=== PATIENT | male | born 1940 | race Caucasian/White ===

== ENCOUNTER 2019-04-02 21:31 | Emergency (ER) | payer MEDICARE ==
[2019-04-02] MEDS ORDERED: HYDROmorphone 0.5 MG/0.5 ML SYRINGE IVP STA (22:15)
[2019-04-02] MEDS ORDERED: ONDANSETRON 4 MG/2 ML VIAL IVP STA (22:15)
[2019-04-02] MEDS ORDERED: SODIUM CHLORIDE 0.9% 1,000 ML IV STA (22:15)
[2019-04-02] MEDS ORDERED: KETOROLAC 30 MG/ML 1 ML VIAL IVP STA (22:15)
[2019-04-02 22:30] LABS: Basophils % (A) 0 %; Eosinophils # (A) 0.1 k/uL (0-0.7); Eosinophils % (A) 1 %; HCT 49.4 % (39.0-53.0); HGB 16.8 gm/dL (13.0-17.5); Lymphocytes # (A) 1.2 k/uL (1.0-4.8); Lymphocytes % (A) 11 %; MCH 32.2 pg (25.0-35.0); MCHC 34.1 g/dL (31.0-37.0); MCV 94.5 fL (80.0-100.0); Mean Platelet Volume 7.4; Monocytes # (A) 0.5 k/uL (0-1.0); Monocytes % (A) 4 %; Neutrophils # (A) 8.5 k/uL (1.3-7.7); Neutrophils % (A) 81 %; Platelet Count 201 k/uL (150-450); RBC 5.22 m/uL (4.30-5.90); RDW 14.6 % (11.5-15.5); WBC 10.4 k/uL (3.8-10.6)
[2019-04-02 22:34] LABS: Albumin 4.3 g/dL (3.5-5.0); Calcium 9.2 mg/dL (8.4-10.2); Potassium 4.3 mmol/L (3.5-5.1); Total Bilirubin 1.1 mg/dL (0.2-1.3); Total Protein 7.3 g/dL (6.3-8.2)
--- NOTE | 2019-04-02 23:08 | XR ---
EXAM: XR Abdomen, 1 View CLINICAL HISTORY: ITS.REASON XR Reason: abdominal pain TECHNIQUE: Frontal supine view of the abdomen/pelvis. COMPARISON: 12/30/14 FINDINGS: Gastrointestinal tract: Unremarkable. No dilation. Bones/joints: No acute fracture. No dislocation. Mild hip joint space loss bilaterally. IMPRESSION: No acute findings.
[2019-04-03 00:13] VITALS: BP 151/76; PULSE 82; RESP 18
[2019-04-03 00:17] LABS: Appearance,Urine Clear (Clear); Bilirubin,Urine Negative (Negative); Blood,Urine Moderate (Negative); Color,Urine Yellow; Glucose,Urine (UA) Trace (Negative); Ketones,Urine Negative (Negative); Leukocyte Esterase,Urine Negative (Negative); Mucus,Urine Occasional /hpf; Nitrite,Urine Negative (Negative); PH, Urine 5.5 (5.0-8.0); Protein,Urine 2+ (Negative); RBC,Urine 27 /hpf (0-5); Specific Gravity,Urine 1.022 (1.001-1.035); Squamous Epithelial Cell,Urine 1 /hpf (0-4); Urobilinogen,Urine <2.0 mg/dL (<2.0); WBC,Urine 2 /hpf (0-5)
[2019-04-03] MEDS ORDERED: IBUPROFEN 600 MG STARTER PACK 4 TAB BTL PO STA (00:20)
[2019-04-03] MEDS ORDERED: TAMSULOSIN 0.4 MG CAP.ER.24H PO STA (00:20)
[2019-04-03] MEDS ORDERED: ACET/COD 300 MG/30 MG STARTER PACK 6 TAB BTL PO STA (00:20)
--- NOTE | 2019-04-03 00:22 | ED ---
Abdominal Pain HPI - General Source: patient, family Mode of arrival: ambulatory Limitations: no limitations <Meli Rai - Last Filed: 04/03/19 02:29> <Alva Sood - Last Filed: 04/03/19 02:49> - General Chief Complaint: Abdominal Pain Stated Complaint: Flank pain Time Seen by Provider: 04/02/19 21:52 - History of Present Illness Initial Comments: 78 year-old male patient presents to the emergency department today for evaluation of right flank pain. Patient states this started around noon. Stat es it is a sharp stabbing pain and has been constant since its onset. Patient states he has had decreased urinary output. Denies any hematuria. States he has been nauseated and having dry heaves. Denies taking any medication for his symptoms. States he does have a history of kidney stones in his pain feels similar. Denies fever or chills. Denies any constipation or diarrhea. Patient denies any recent rash, shortness breath, chest pain, numbness, tingling, dizziness, weakness, headache, visual changes, or any other complaints. (Meli Rai) - Related Data Home Medications Medication Instructions Recorded Confirmed Metoprolol Tartrate [Lopressor] 100 mg PO BID 12/30/14 12/30/14 Pravastatin Sodium [Pravachol] 40 mg PO HS 12/30/14 12/30/14 Previous Rx's Medication Instructions Recorded Tamsulosin HCl [Flomax] 0.4 mg PO DAILY #7 cap 12/30/14 Hydrocodone/Acetaminophen [Boyd 1 tab PO Q6HR PRN #12 tab 04/03/19 5-325] Tamsulosin HCl [Flomax] 0.4 mg PO DAILY #7 cap 04/03/19 Allergies Allergy/AdvReac Type Severity Reaction Status Date / Time No Known Allergies Allergy Verified 04/02/19 21:44 Review of Systems ROS Other: All systems not noted in ROS Statement are negative. <Meli Rai - Last Filed: 04/03/19 02:29> ROS Other: All systems not noted in ROS Statement are negative. <Alva Sood - Last Filed: 04/03/19 02:49> ROS Statement: Those systems with pertinent positive or pertinent negative responses have been documented in the HPI. Past Medical History Past Medical History: Hyperlipidemia, Hypertension Additional Past Medical History / Comment(s): KIDNEY STONES, GLAUCOMA History of Any Multi-Drug Resistant Organisms: None Reported Past Surgical History: Orthopedic Surgery Additional Past Surgical History / Comment(s): HEEL SPURS REMOVED Past Psychological History: No Psychological Hx Reported Smoking Status: Former smoker Past Alcohol Use History: None Reported Past Drug Use History: None Reported <Meli Rai Clifford - Last Filed: 04/03/19 02:29> General Exam Limitations: no limitations General appearance: alert, in no apparent distress, other (Physical well- developed, well-nourished elderly male patient in no acute distress. Vital signs upon presentation are temperature 97.7F, pulse 53, respirations 20, blood pressure 198/94, pulse ox 97% on room air.) Eye exam: Present: normal appearance, PERRL, EOMI. Absent: scleral icterus, conjunctival injection, periorbital swelling ENT exam: Present: normal exam, normal oropharynx, mucous membranes moist Respiratory exam: Present: normal lung sounds bilaterally. Absent: respiratory distress, wheezes, rales, rhonchi, stridor Cardiovascular Exam: Present: regular rate, normal rhythm, normal heart sounds. Absent: systolic murmur, diastolic murmur, rubs, gallop, clicks GI/Abdominal exam: Present: soft, normal bowel sounds. Absent: distended, tenderness, guarding, rebound, rigid Back exam: Present: normal inspection, CVA tenderness (R). Absent: CVA tenderness (L) Neurological exam: Present: alert, oriented X3, CN II-XII intact Psychiatric exam: Present: normal affect, normal mood Skin exam: Present: warm, dry, intact, normal color. Absent: rash <Meli Rai M - Last Filed: 04/03/19 02:29> Course Vital Signs 04/02/19 04/03/19 04/03/19 21:40 00:12 00:41 Temperature 97.7 F 98.1 F Pulse Rate 53 L 82 Respiratory 20 18 Rate Blood Pressure 198/94 151/76 O2 Sat by Pulse 97 94 L Oximetry Medical Decision Making - Lab Data Result diagrams: 04/02/19 22:08 04/02/19 22:08 - Radiology Data Radiology results: report reviewed, image reviewed <Meli Rai - Last Filed: 04/03/19 02:29> - Lab Data Result diagrams: 04/02/19 22:08 04/02/19 22:08 <Alva Sood - Last Filed: 04/03/19 02:49> - Medical Decision Making 78 year-old male patient presented to the emergency department today for evaluation of right flank pain. Physical examination did reveal right CVA tenderness. Labs reviewed and did reveal BUN 22, creatinine 1.86. Urinalysis showed 2+ protein, trace glucose, moderate blood, 27 red blood cells, and occasional mucous. X-ray showed no acute abnormalities in the abdomen. Did discuss findings and results with the patient. Patient symptoms and lab findings are consistent with kidney stone. He'll be started on Flomax. Given pain medication for home. Is instructed to follow-up with urologist as soon as possible. He does see Dr. Hall. Return parameters were discussed in detail. He verbalizes understanding and agrees this plan. (Meli Rai) I was available for consultation in the emergency department. The history and physical exam were done by the midlevel provider. I was consulted for this patient's care. I reviewed the case with the midlevel provider and based on their presentation of the patient, I agree with the assessment, medical decision making and plan of care as documented. Chart was dictated using [employer] dictation software. Attempts were made to correct any dictation errors however some typographical errors may persist. (Alva Sood) - Lab Data Lab Results 04/02/19 04/02/19 04/03/19 Range/Units 22:08 22:08 00:09 WBC 10.4 (3.8-10.6) k/uL RBC 5.22 (4.30-5.90) m/uL Hgb 16.8 (13.0-17.5) gm/dL Hct 49.4 (39.0-53.0) % MCV 94.5 (80.0-100.0) fL MCH 32.2 (25.0-35.0) pg MCHC 34.1 (31.0-37.0) g/dL RDW 14.6 (11.5-15.5) % Plt Count 201 (150-450) k/uL Neutrophils % 81 % Lymphocytes % 11 % Monocytes % 4 % Eosinophils % 1 % Basophils % 0 % Neutrophils # 8.5 H (1.3-7.7) k/uL Lymphocytes # 1.2 (1.0-4.8) k/uL Monocytes # 0.5 (0-1.0) k/uL Eosinophils # 0.1 (0-0.7) k/uL Basophils # 0.0 (0-0.2) k/uL Sodium 142 (137-145) mmol/L Potassium 4.3 (3.5-5.1) mmol/L Chloride 108 H (98-107) mmol/L Carbon Dioxide 24 (22-30) mmol/L Anion Gap 10 mmol/L BUN 22 H (9-20) mg/dL Creatinine 1.86 H (0.66-1.25) mg/dL Est GFR (CKD-EPI)AfAm 40 (>60 ml/min/1.73 sqM) Est GFR (CKD-EPI)NonAf 35 (>60 ml/min/1.73 sqM) Glucose 141 H (74-99) mg/dL Calcium 9.2 (8.4-10.2) mg/dL Total Bilirubin 1.1 (0.2-1.3) mg/dL AST 26 (17-59) U/L ALT 33 (21-72) U/L Alkaline Phosphatase 91 (38-126) U/L Total Protein 7.3 (6.3-8.2) g/dL Albumin 4.3 (3.5-5.0) g/dL Amylase 62 (30-110) U/L Lipase 121 (23-300) U/L Urine Color Yellow Urine Appearance Clear (Clear) Urine pH 5.5 (5.0-8.0) Ur Specific [place] 1.022 (1.001-1.035) Urine Protein 2+ H (Negative) Urine Glucose (UA) Trace H (Negative) Urine Ketones Negative (Negative) Urine Blood Moderate H (Negative) Urine Nitrite Negative (Negative) Urine Bilirubin Negative (Negative) Urine Urobilinogen <2.0 (<2.0) mg/dL Ur Leukocyte Esterase Negative (Negative) Urine RBC 27 H (0-5) /hpf Urine WBC 2 (0-5) /hpf Ur Squamous Epith Cells 1 (0-4) /hpf Urine Mucus Occasional H (None) /hpf - Radiology Data One view x-ray of the abdomen is obtained. Report was reviewed in its entirety. Impression by Dr. Moreiar shows no acute findings. (Meli Rai) Disposition Is patient prescribed a controlled substance at d/c from ED?: No Time of Disposition: 00:22 <Meli Rai - Last Filed: 04/03/19 02:29> <Alva Sood - Last Filed: 04/03/19 02:49> Clinical Impression: Kidney stone on right side Disposition: HOME SELF-CARE Condition: Good Instructions (If sedation given, give patient instructions): Kidney Stones (ED) Additional Instructions: Increase fluids. Take medications as directed. Follow up with urology for recheck as soon as possible. Follow-up with the primary care physician for recheck in 1-2 days. Return to the emergency department immediately for any new, worsening, or concerning symptoms. Prescriptions: Tamsulosin HCl [Flomax] 0.4 mg PO DAILY #7 cap Hydrocodone/Acetaminophen [Boyd 5-325] 1 tab PO Q6HR PRN #12 tab PRN Reason: Pain Referrals: Chava Killian DO [Primary Care Provider] - 1-2 days Damir Romeo MD [STAFF PHYSICIAN] - 1-2 days
[2019-04-03 00:42] VITALS: TEMP 98.1
== END 2019-04-03 00:41 | disposition home or self-care (01) ==
LOC: EC 21:31
DX: N20.0 Calculus of kidney (principal); E78.5 Hyperlipidemia, unspecified; I10 Essential (primary) hypertension; Z87.891 Personal history of nicotine dependence; Z53.8 Procedure and treatment not carried out for other reasons; Z79.899 Other long term (current) drug therapy
CPT/HCPCS: 51798; 36415; 80053; 82150; 83690; 85025; 81001; 74018; 99284; 96374; 96375 ×2; 96361 ×2; J2405; J1885; J1170

== ENCOUNTER → 2019-04-03 | Outpatient (CLI) | payer MEDICARE ==
--- NOTE | 2019-04-03 21:16 | CT ---
EXAMINATION TYPE: CT abdomen pelvis wo con DATE OF EXAM: 04/03/2019 COMPARISON: 07/30/2015 HISTORY: 78-year-old male Right flank pain. CT DLP: 1021.9 mGycm. Automated exposure control for dose reduction was used. TECHNIQUE: Contiguous axial scanning of the abdomen and pelvis without IV contrast. Coronal and sagit cristhian reconstructions performed. FINDINGS: Heart normal size without pericardial effusion. Bands of atelectasis or scarring in the lower lungs w ithout pleural effusion. Calcified left hilar lymph node partially visualized compatible with prior g ranulomatous disease. Small hiatal hernia. Noncontrast appearance of the liver, adrenal glands, spleen, and pancreas shows no gross abnormality. Gallbladder mildly hydropic measuring 4.6 cm wide without surrounding inflammatory change. Bilateral renal cysts are demonstrated measuring up to 3.9 cm on the right and 4.9 cm on the left. Pu nctate 2 mm nonobstructive left renal calculus. Lobulated intermediate density lesion lower pole left kidney measures 5.1 cm, versus 5.0 cm in 2015 s uggesting a complicated cyst. There is mild perinephric fat stranding on the right with mild hydronephrosis and asymmetric prominen ce to the right ureter. No dilated small bowel, free fluid, or free air. No mesenteric or retroperitoneal lymphadenopathy. Normal appendix. Scattered mild stool. No pericolonic inflammatory change. Lateral nondistended but shows circumferential wall thickening. Marked prostatomegaly at 7.4 cm wide. Punctate 1 to 2 mm calculus suggested in the distal right ureter, axial image 131 and coronal image 6 3. Additional possible punctate 2 mm calculus at the right UVJ. No abnormal fluid collection in the pelvis. A few left external iliac chain lymph nodes measure up to 8 mm and are probably reactive/post inflammatory. Bones: Degenerative changes at the hips and SI joints. Degenerative changes throughout the lumbar spi ne. IMPRESSION: 1. A punctate 1 to 2 mm calculus at the distal right ureter and possible additional punctate 2 mm ca lculus at the right UVJ. There is mild obstructive uropathy. 2. Additional right-sided perinephric fat stranding. This may be reactive to the mild obstruction. C orrelate to exclude superimposed infection. 3. Marked prostatomegaly (7.4 cm wide). Correlate with PSA values. Circumferential bladder wall thic kening could reflect cystitis or bladder wall hypertrophy from chronic bladder outlet obstruction. 4. Bilateral renal cysts redemonstrated measuring up to 4.9 cm. One indeterminate lesion at the lowe r pole of the left kidney measures 5.1 cm and demonstrates little to no change from 07/30/2015 likely representing a complicated cyst. 5. Mildly hydropic gallbladder likely secondary to fasting state. If right upper quadrant pain or co ncern for early acute cholecystitis, follow-up ultrasound or HIDA scan. 6. Small hiatal hernia.
== END | disposition home or self-care (01) ==
LOC: RADCTMAIN 15:30
PROVIDERS: ATTEND Urology
DX: N20.1 Calculus of ureter (principal); N40.0 Benign prostatic hyperplasia without lower urinary tract symptoms; N28.1 Cyst of kidney, acquired; N39.8 Other specified disorders of urinary system; K44.9 Diaphragmatic hernia without obstruction or gangrene
CPT/HCPCS: 74176

== ENCOUNTER 2019-04-04 15:11 | Inpatient (IN) | payer MEDICARE ==
[2019-04-04] MEDS ORDERED: KETOROLAC 30 MG/ML 1 ML VIAL IVP STA (15:52)
[2019-04-04] MEDS ORDERED: ONDANSETRON 4 MG/2 ML VIAL IVP STA (15:52)
[2019-04-04] MEDS ORDERED: HYDROmorphone 0.5 MG/0.5 ML SYRINGE IVP STA (15:53)
--- NOTE | 2019-04-04 16:09 | ED ---
General Adult HPI - General Chief complaint: Back Pain/Injury Stated complaint: Kidney Pain Time Seen by Provider: 04/04/19 15:34 Source: patient, RN notes reviewed Mode of arrival: ambulatory Limitations: no limitations - History of Present Illness Initial comments: 78-year-old male with a past medical history of hypertension, hyperlipidemia, glaucoma, nephrolithiasis presents to the emergency department for chief copmlaint of right flank pain 2 days. Patient states he was diagnosed with kidney stone. States he had an outpatient computed tomography scan done yesterday ordered by Dr. hair. Patient states he has been taking his Hilbert at home but his pain is not relieved. States he has been vomiting several times at home without relief. Apparently patient called office who is not in the office today so was told to come to the ER. CT did show a 1-2 mm kidney stone in the distal right ureter as well as a 2 mm kidney stone in the UVJ. Patient has no other complaints at this time including shortness of breath, chest pain, abdominal pain, nausea or vomiting, headache, or visual changes. - Related Data Home Medications Medication Instructions Recorded Confirmed Metoprolol Tartrate [Lopressor] 100 mg PO BID 12/30/14 04/04/19 Atorvastatin [Lipitor] 40 mg PO HS 04/04/19 04/04/19 Brimonidine Tartrate [Alphagan P 1 drops BOTH EYES BID 04/04/19 04/04/19 0.2% Ophth Soln] Latanoprost [Xalatan 0.005%] 1 drop BOTH EYES HS 04/04/19 04/04/19 Losartan Potassium 100 mg PO DAILY 04/04/19 04/04/19 Previous Rx's Medication Instructions Recorded Tamsulosin HCl [Flomax] 0.4 mg PO DAILY #7 cap 04/03/19 Allergies Allergy/AdvReac Type Severity Reaction Status Date / Time No Known Allergies Allergy Verified 04/04/19 16:31 Review of Systems ROS Statement: Those systems with pertinent positive or pertinent negative responses have been documented in the HPI. ROS Other: All systems not noted in ROS Statement are negative. Past Medical History Past Medical History: Hyperlipidemia, Hypertension Additional Past Medical History / Comment(s): KIDNEY STONES, GLAUCOMA History of Any Multi-Drug Resistant Organisms: None Reported Past Surgical History: Orthopedic Surgery Additional Past Surgical History / Comment(s): HEEL SPURS REMOVED Past Psychological History: No Psychological Hx Reported Smoking Status: Former smoker Past Alcohol Use History: None Reported Past Drug Use History: None Reported General Exam Limitations: no limitations Course Vital Signs 04/04/19 15:25 Temperature 98.3 F Pulse Rate 52 L Respiratory 18 Rate Blood Pressure 152/75 O2 Sat by Pulse 94 L Oximetry - Reevaluation(s) Reevaluation #1: 04/04/19 16:10 CT of the abdomen and pelvis shows a punctate 1-2 mm calculus in the distal right ureter and possible additional punctate 2 mm calculus at the right UVJ with mild obstructive uropathy. There is a right-sided perinephric fat strandi ng. Patient has marked prostatomegaly with circumferential bladder wall thickening. Bilateral renal cysts and an indeterminate lesion at the lower pole of the left kidney deficits little to no change which is likely a complicated cyst. Patient is aware of this already.There is also mildly hydropic gallbladder likely secondary to fasting state. No right upper quadrant pain, no concern for cholecystitis. Medical Decision Making - Medical Decision Making 78-year-old male presents to the emergency department for a chief complaint of right flank pain 2 days. She had an outpatient CT obtained which showed a 1-2 mm stone in the distal right ureter and a 2 mm stone in the right UVJ. She states he is drinking water but is vomiting often due to the pain at home despite Hilbert use. On presentation vitals are stable. Exam does not show any abdominal tenderness but does have right CVA tenderness. CBC shows a white count of 11.6. Creatinine is 2.73 which is increased from 1.86 less than 2 days ago. BUN/creatinine ratio is 12 1. Concern for post renal JAVIER cause. Patient does have enlarged prostate but no retention on bladder scan. Could have a component of dehydration as well as patient has been vomiting frequently. However given JAVIER patient will be admitted for IV hydration as well as urology consult and pain management. - Lab Data Result diagrams: 04/04/19 16:00 04/04/19 16:00 Lab Results 04/04/19 04/04/19 04/04/19 Range/Units 16:00 16:00 16:00 WBC 11.6 H (3.8-10.6) k/uL RBC 4.50 (4.30-5.90) m/uL Hgb 14.3 (13.0-17.5) gm/dL Hct 42.9 (39.0-53.0) % MCV 95.4 (80.0-100.0) fL MCH 31.7 (25.0-35.0) pg MCHC 33.2 (31.0-37.0) g/dL RDW 13.7 (11.5-15.5) % Plt Count 171 (150-450) k/uL Neutrophils % 88 % Lymphocytes % 6 % Monocytes % 4 % Eosinophils % 2 % Basophils % 0 % Neutrophils # 10.2 H (1.3-7.7) k/uL Lymphocytes # 0.7 L (1.0-4.8) k/uL Monocytes # 0.5 (0-1.0) k/uL Eosinophils # 0.2 (0-0.7) k/uL Basophils # 0.0 (0-0.2) k/uL Sodium 138 (137-145) mmol/L Potassium 4.5 (3.5-5.1) mmol/L Chloride 106 (98-107) mmol/L Carbon Dioxide 21 L (22-30) mmol/L Anion Gap 11 mmol/L BUN 34 H (9-20) mg/dL Creatinine 2.73 H (0.66-1.25) mg/dL Est GFR (CKD-EPI)AfAm 25 (>60 ml/min/1.73 sqM) Est GFR (CKD-EPI)NonAf 22 (>60 ml/min/1.73 sqM) Glucose 123 H (74-99) mg/dL Calcium 8.3 L (8.4-10.2) mg/dL Total Bilirubin 1.6 H (0.2-1.3) mg/dL AST 45 (17-59) U/L ALT 25 (21-72) U/L Alkaline Phosphatase 63 (38-126) U/L Total Protein 6.7 (6.3-8.2) g/dL Albumin 3.9 (3.5-5.0) g/dL Urine Color Yellow Urine Appearance Clear (Clear) Urine pH 6.0 (5.0-8.0) Ur Specific [place] 1.022 (1.001-1.035) Urine Protein 1+ H (Negative) Urine Glucose (UA) Trace H (Negative) Urine Ketones Negative (Negative) Urine Blood Moderate H (Negative) Urine Nitrite Negative (Negative) Urine Bilirubin Negative (Negative) Urine Urobilinogen <2.0 (<2.0) mg/dL Ur Leukocyte Esterase Trace H (Negative) Urine RBC >182 H (0-5) /hpf Urine WBC 10 H (0-5) /hpf Ur Squamous Epith Cells <1 (0-4) /hpf Urine Bacteria Rare H (None) /hpf Hyaline Casts 1 (0-2) /lpf Urine Mucus Rare H (None) /hpf Disposition Clinical Impression: Kidney stone on right side, JAVIER (acute kidney injury) Disposition: ADMITTED IP TO THIS HOSP Condition: Fair Is patient prescribed a controlled substance at d/c from ED?: No Referrals: Chava Killian DO [Primary Care Provider] - 1-2 days Time of Disposition: 16:58
[2019-04-04 16:17] LABS: Basophils % (A) 0 %; Eosinophils # (A) 0.2 k/uL (0-0.7); Eosinophils % (A) 2 %; HCT 42.9 % (39.0-53.0); HGB 14.3 gm/dL (13.0-17.5); Lymphocytes # (A) 0.7 k/uL (1.0-4.8); Lymphocytes % (A) 6 %; MCH 31.7 pg (25.0-35.0); MCHC 33.2 g/dL (31.0-37.0); MCV 95.4 fL (80.0-100.0); Mean Platelet Volume 6.9; Monocytes # (A) 0.5 k/uL (0-1.0); Monocytes % (A) 4 %; Neutrophils # (A) 10.2 k/uL (1.3-7.7); Neutrophils % (A) 88 %; Platelet Count 171 k/uL (150-450); RDW 13.7 % (11.5-15.5); WBC 11.6 k/uL (3.8-10.6)
[2019-04-04 16:26] LABS: Appearance,Urine Clear (Clear); Bacteria,Urine Rare /hpf; Bilirubin,Urine Negative (Negative); Blood,Urine Moderate (Negative); Color,Urine Yellow; Glucose,Urine (UA) Trace (Negative); Hyaline Casts,Urine 1 /lpf (0-2); Ketones,Urine Negative (Negative); Leukocyte Esterase,Urine Trace (Negative); Mucus,Urine Rare /hpf; Nitrite,Urine Negative (Negative); Protein,Urine 1+ (Negative); RBC,Urine >182 /hpf (0-5); Specific Gravity,Urine 1.022 (1.001-1.035); Squamous Epithelial Cell,Urine <1 /hpf (0-4); Urobilinogen,Urine <2.0 mg/dL (<2.0); WBC,Urine 10 /hpf (0-5)
[2019-04-04 16:32] LABS: Albumin 3.9 g/dL (3.5-5.0); Calcium 8.3 mg/dL (8.4-10.2); Potassium 4.5 mmol/L (3.5-5.1); Total Bilirubin 1.6 mg/dL (0.2-1.3); Total Protein 6.7 g/dL (6.3-8.2)
[2019-04-04] MEDS ORDERED: SODIUM CHLORIDE 0.9% 1,000 ML IV STA (16:35)
[2019-04-04] MEDS ORDERED: ONDANSETRON 4 MG/2 ML VIAL IVP PRN (16:58)
[2019-04-04] MEDS ORDERED: NALOXONE 0.4 MG/ML 1 ML VIAL IV PRN (16:58)
[2019-04-04] MEDS ORDERED: ACETAMINOPHEN TAB 325 MG TAB PO PRN (16:58)
[2019-04-04] MEDS: SODIUM CHLORIDE 0.9% 1,000 ML IV SCH (17:46)
[2019-04-04 20:31] VITALS: BMI 29.9
[2019-04-04] MEDS: ATORVASTATIN 40 MG TAB PO SCH (20:31)
[2019-04-04] MEDS: BRIMONIDINE TARTRATE 0.2% DROPS 5 ML BTL BOTH EYES SCH (20:32)
[2019-04-04] MEDS: LATANOPROST 0.005% OPHTH DROPS 2.5 ML BTL BOTH EYES SCH (20:32)
[2019-04-04] MEDS: METOPROLOL TARTRATE 50 MG TAB PO SCH (22:21)
[2019-04-04] MEDS: HEPARIN SODIUM,PORCINE 5,000 UNIT/ML 1 ML VIAL SQ SCH (22:21)
[2019-04-04] MEDS: PANTOPRAZOLE 40 MG TABLET PO SCH (23:06)
[2019-04-05] MEDS ORDERED: HYDROmorphone 0.5 MG/0.5 ML SYRINGE ONE (01:18)
[2019-04-05] MEDS: SODIUM CHLORIDE 0.9% 1,000 ML IV SCH ×3 (04:58→23:56)
--- NOTE | 2019-04-05 05:28 | HP ---
HISTORY AND PHYSICAL CHIEF COMPLAINT: Right-sided back pain and low into loin to groin pain and renal failure. HISTORY OF PRESENT ILLNESS: This 78-year-old gentleman with a past medical history of multiple medical problems including hyperlipidemia, history of hypertension, kidney stones, being followed Dr. Killian in the outpatient setting, was complaining of back pain which radiated to the front, the right flank pain about 2 days. The patient previously had kidney stones. The patient had outpatient CAT scan. Patient was taking [place] because of lack of improvement. The patient came to [facility] admitted for further evaluation and treatment. The CT scan showed 1 to 2 mm kidney stones in the distal right ureter as well as 2 mm kidney stones in the UVJ. There is no history of any fever. There is no history of headache, loss of consciousness or seizures. Of note, the patient's creatinine was found to be 2.73, indicating acute renal failure. The patient also had multiple other lab abnormalities also. There is no history of any fever, rigors. No history of headache, loss of consciousness or seizures. PAST MEDICAL HISTORY: History of hypertension, hyperlipidemia, nephrolithiasis, history of DJD. MEDICATIONS: Medications prior to admission include: 1. Lipitor 40 mg q.h.s. 2. Xalatan 0.005 one drop both eyes q.h.s. 3. Alphagan 0.2 one drop both eyes b.i.d. 4. Losartan 100 mg p.o. daily. 5. Metoprolol 100 mg p.o. b.i.d. 6. Flomax 0.4 daily. ALLERGIES: None. FAMILY HISTORY: History of cancer in the family. SOCIAL HISTORY: Previous history of smoking. No history of alcohol intake. REVIEW OF SYSTEMS: ENT: No diminished hearing or diminished vision. CARDIOVASCULAR SYSTEM: No angina. RESPIRATORY SYSTEM: No cough. GI: No nausea. : As mentioned earlier. NERVOUS SYSTEM: No numbness or weakness. ALLERGY/IMMUNOLOGY: No asthma or hayfever. MUSCULOSKELETAL: As mentioned earlier. HEMATOLOGY/ONCOLOGY: No history of anemia. ENDOCRINE: No history of diabetes or hypothyroidism. CONSTITUTIONAL: As mentioned earlier. DERMATOLOGY: Negative. RHEUMATOLOGY: Negative. PSYCHIATRY: As mentioned earlier. PHYSICAL EXAMINATION: The patient is alert and oriented x3. Pulse is 52, blood pressure 167/85, respirations 16, temperature 97.8, pulse ox 93% on room air. HEENT: Conjunctivae normal. Oral mucosa moist. NECK: No jugular venous distention. No carotid bruit. No lymph node enlargement. CARDIOVASCULAR: S1, S2 muffled. No S3, no S4. RESPIRATORY: Breath sounds diminished at the bases. No rhonchi, no crackles. ABDOMEN: Soft, mild diffuse tenderness in the right side of the abdomen present. No guarding. No rigidity. No mass palpable. No ascites. Bowel sounds present. LEGS: No edema, no swelling NERVOUS SYSTEM: Higher function as mentioned earlier. Moves all 4 limbs. No focal motor or sensory deficit. LYMPHATICS: No lymphadenopathy of the neck, axillae or groin. SKIN: No ulcer, rash or bleeding. JOINTS: No active deforming arthropathy. LABS: WBC 11.6, hemoglobin 14.3. Sodium 138, potassium 4.5. Creatinine is 2.73. Total bilirubin is 1.6. Glucose 123. Creatine kinase 772. ASSESSMENT: 1. Acute renal failure possibly prerenal as well as postrenal. 2. Right nephrolithiasis with abdominal pain. 3. Hypertension. 4. Hyperlipidemia. 5. History of kidney stones. 6. History of glaucoma. 7. Remote history of nicotine dependence. RECOMMENDATIONS AND DISCUSSION: This 78-year-old gentleman who presented with multiple complex medical issues, will monitor the patient closely. Continue the current medications. Continue symptomatic treatment. Cautious IV hydration. Repeat labs. Otherwise also recommend nephrology and urology evaluations. DVT prophylaxis. Guarded prognosis because of multiple complex medical issues. Further recommendations to follow. A copy of dictation forwarded to Dr. Killian who is the primary physician. [id number] / LUISN: [id number] /
[2019-04-05] MEDS: HYDROmorphone 0.5 MG/0.5 ML SYRINGE IVP PRN ×2 (06:58→13:17)
[2019-04-05] MEDS ORDERED: LOSARTAN 50 MG TAB PO SCH (09:00)
[2019-04-05 09:28] LABS: Basophils % (A) 0 %; Eosinophils # (A) 0.1 k/uL (0-0.7); Eosinophils % (A) 2 %; HCT 41.6 % (39.0-53.0); HGB 13.8 gm/dL (13.0-17.5); Lymphocytes # (A) 0.7 k/uL (1.0-4.8); Lymphocytes % (A) 7 %; MCH 32.3 pg (25.0-35.0); MCHC 33.2 g/dL (31.0-37.0); MCV 97.3 fL (80.0-100.0); Mean Platelet Volume 6.9; Monocytes # (A) 0.5 k/uL (0-1.0); Monocytes % (A) 5 %; Neutrophils # (A) 7.6 k/uL (1.3-7.7); Neutrophils % (A) 84 %; Platelet Count 166 k/uL (150-450); RBC 4.27 m/uL (4.30-5.90); RDW 13.8 % (11.5-15.5); WBC 9.1 k/uL (3.8-10.6)
[2019-04-05 09:43] LABS: Calcium 7.8 mg/dL (8.4-10.2); Potassium 4.4 mmol/L (3.5-5.1)
[2019-04-05] MEDS: BRIMONIDINE TARTRATE 0.2% DROPS 5 ML BTL BOTH EYES SCH ×2 (10:35→21:54)
[2019-04-05] MEDS: METOPROLOL TARTRATE 50 MG TAB PO SCH ×2 (10:39→21:55)
[2019-04-05] MEDS: PANTOPRAZOLE 40 MG TABLET PO SCH (10:40)
[2019-04-05] MEDS: TAMSULOSIN 0.4 MG CAP.ER.24H PO SCH (10:40)
--- NOTE | 2019-04-05 12:25 | P.NPCON ---
History of Present Illness - Reason for Consult acute renal failure - History of Present Illness Reason for consultation: Acute kidney injury History of present illness: Patient is a 78-year-old male seen in renal consultation for acute kidney injury. Patient's creatinine in December 2014 was 1.75. On 04/02/2019 it was 1.86 and peaked at 2.73 yesterday. It is 2.5 today. Patient presented to the hospital due to right-sided flank pain. Patient states he had a CAT scan done which revealed bilateral kidney stones with mild right-sided hydronephrosis. He denies any fever or chills. He did have 1 episode of hematuria on Wednesday but none since then. He is maintained on normal saline at 100 mL an hour. He is also being followed by urology. There are no plans for surgical intervention at this time. He denies use of nonsteroidals. Oral intake has been poor the last few days. Denies vomiting or diarrhea. No history of diabetes. He is maintained on losartan for hypertension. Denies family history of renal disease. Vital signs are stable. General: The patient appeared well nourished and normally developed. HEENT: Head exam is unremarkable. Neck is without jugular venous distension. LUNGS: Lungs are clear to auscultation and percussion. Breath sounds decreased. HEART: Rate and Rhythm are regular. First and second heart sounds normal. No murmurs, rubs or gallops. ABDOMEN: Abdominal exam reveals normal bowel sounds. Right lower quadrant tenderness. Obese. EXTREMITITES: No clubbing, cyanosis, or edema. Past Medical History Past Medical History: Hyperlipidemia, Hypertension Additional Past Medical History / Comment(s): KIDNEY STONES, GLAUCOMA History of Any Multi-Drug Resistant Organisms: None Reported Past Surgical History: Orthopedic Surgery Additional Past Surgical History / Comment(s): HEEL SPURS REMOVED Past Psychological History: No Psychological Hx Reported Smoking Status: Former smoker Past Alcohol Use History: None Reported Past Drug Use History: None Reported - Past Family History Father Family Medical History: Cancer Mother Family Medical History: Cancer Medications and Allergies Home Medications Medication Instructions Recorded Confirmed Type Metoprolol Tartrate [Lopressor] 100 mg PO BID 12/30/14 04/04/19 History Tamsulosin HCl [Flomax] 0.4 mg PO DAILY #7 cap 04/03/19 04/04/19 Rx Atorvastatin [Lipitor] 40 mg PO HS 04/04/19 04/04/19 History Brimonidine Tartrate [Alphagan P 1 drops BOTH EYES BID 04/04/19 04/04/19 History 0.2% Ophth Soln] Latanoprost [Xalatan 0.005%] 1 drop BOTH EYES HS 04/04/19 04/04/19 History Losartan Potassium 100 mg PO DAILY 04/04/19 04/04/19 History Allergies Allergy/AdvReac Type Severity Reaction Status Date / Time No Known Allergies Allergy Verified 04/04/19 16:31 Physical Exam Vitals: Vital Signs Temp Pulse Pulse Resp BP BP Pulse Ox 04/05/19 10:29 53 L 16 96 04/05/19 07:00 98.0 F 58 L 16 156/75 90 L 04/05/19 05:21 98.3 F 54 L 16 126/60 90 L 04/04/19 19:59 98.2 F 75 17 146/95 94 L 04/04/19 18:47 97.8 F 52 L 16 167/85 93 L 04/04/19 17:45 97.2 F L 54 L 18 140/92 94 L 04/04/19 15:25 98.3 F 52 L 18 152/75 94 L Intake and Output 04/04/19 04/05/19 04/05/19 22:59 06:59 14:59 Other: Voiding Method Toilet # Voids 1 2 Weight 103.147 kg Results - Lab Results Most recent lab results Calcium 7.8 mg/dL (8.4-10.2) L 04/05/19 08:59 04/05/19 08:59 04/05/19 08:59 Assessment and Plan Plan: Assessment: 1. Acute kidney injury mostly prerenal secondary to poor oral intake. Creatinine peaked at 2.73 and is 2.5 today. 2. Chronic kidney disease. Patient's creatinine in December 2014 was 1.75. 3. Nephrolithiasis. 4. Metabolic acidosis secondary to acute kidney injury. 5. Benign hypertension. Controlled. Plan: Maintain normal saline at 100 mL an hour. Add sodium bicarbonate. Avoid nephrotoxins. DC losartan. I will add amlodipine for blood pressure control. Repeat electrolytes in the morning. Thank you for the consultation. I will continue to follow the patient with you during his hospital stay.
[2019-04-05] MEDS: HEPARIN SODIUM,PORCINE 5,000 UNIT/ML 1 ML VIAL SQ SCH ×2 (13:16→18:10)
[2019-04-05] MEDS: SODIUM BICARBONATE TAB 650 MG TAB PO SCH ×2 (14:15→21:55)
[2019-04-05] MEDS: amLODIPine 5 MG TAB PO SCH ×2 (14:15→21:56)
--- NOTE | 2019-04-05 17:44 | PN ---
PROGRESS NOTE DATE OF SERVICE: 04/05/2019 This 78-year-old gentleman who was admitted with renal failure also had right nephrolithiasis. The patient is being closely monitored by Nephrology and Urology. No chest pain. No palpitations. No fever. The creatinine today is 2.58. On exam, alert and oriented x3. Pulse is 59, blood pressure 161/82, respiration 18, temperature 98.4, pulse ox 93% on room air. HEENT: Conjunctivae normal. NECK: No jugular venous distention. CARDIOVASCULAR SYSTEM: S1, S2 muffled. RESPIRATORY SYSTEM: Breath sounds diminished at the bases. No rhonchi. No crackles. ABDOMEN: Soft. Mild diffuse discomfort. Otherwise, no guarding, no rigidity. No mass palpable. LEGS: No edema. No swelling. NERVOUS SYSTEM: No focal deficit. LABS: WBC 9.1, hemoglobin 13.8. Sodium 139, potassium 4.4. Creatinine is 2.58. ASSESSMENT: 1. Acute renal failure, possibly prerenal as well as postrenal. 2. Right nephrolithiasis with abdominal pain. 3. Hypertension. 4. Hyperlipidemia. 5. History of kidney stones. 6. History of glaucoma. 7. Remote history of nicotine dependence. RECOMMENDATIONS AND DISCUSSION: I recommend to continue current medications, continue with the monitoring, symptomatic treatment. Closely follow with Urology and Nephrology. Guarded prognosis. Further recommendations to follow. MMODL / IJN: [id number] /
--- NOTE | 2019-04-05 19:06 | P.GSCN ---
History of Present Illness Consult date: 04/05/19 Reason for Consult: Right ureteral calculus and hydronephrosis History of present illness: The patient is a 78-year-old male with a history of uric acid urolithiasis admitted through the emergency room yesterday afternoon for evaluation of intr actable right flank pain, nausea and vomiting. The patient is well known to me and had been seen by me om04/03/2019. He developed right flank pain, nausea and vomiting on 04/02 and was seen in the emergency room. He was noted to have microscopic hematuria and was given analgesics and tamsulosin in hopes that he would pass a stone. When I saw him on 04/03 he continued to complain of urgency to void but his postvoid residual was very small. I suspected a distal ureteral calculus and a noncontrast computed tomography scan of the abdomen and pelvis was obtained later in the day. This identified a 2 mm calculus which appeared to be at the right ureteral meatus and a possible 1 mm calculus located 1-1/2-2 cm more proximally. The patient says that he has continued to have urgency since that time and came to the emergency room as he was unable to tolerate the pain. He has not seen a calculus since he was admitted. His white blood count at the time of admission was 11,600. This morning is 9100. BUN/creatinine at the time of admission were 34/2.73. BUN/creatinine today are 34/2.58. He had previously undergone ureteroscopy with lithotripsy for treatment of a left ureteral calculus in 2008. The calculus was 100% uric acid. 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 He has had no subsequent calculi. Review of Systems - Constitutional Denies chills, Denies fever - Cardiovascular Denies edema, Denies shortness of breath - Gastrointestinal Reports as per HPI - Genitourinary Reports as per HPI, Denies dysuria, Denies hematuria Past Medical History Past Medical History: Hyperlipidemia, Hypertension Additional Past Medical History / Comment(s): KIDNEY STONES, GLAUCOMA History of Any Multi-Drug Resistant Organisms: None Reported Past Surgical History: Orthopedic Surgery Additional Past Surgical History / Comment(s): HEEL SPURS REMOVED Past Psychological History: No Psychological Hx Reported Smoking Status: Former smoker Past Alcohol Use History: None Reported Past Drug Use History: None Reported - Past Family History Father Family Medical History: Cancer Mother Family Medical History: Cancer Medications and Allergies Home Medications Medication Instructions Recorded Confirmed Type Metoprolol Tartrate [Lopressor] 100 mg PO BID 12/30/14 04/04/19 History Tamsulosin HCl [Flomax] 0.4 mg PO DAILY #7 cap 04/03/19 04/04/19 Rx Atorvastatin [Lipitor] 40 mg PO HS 04/04/19 04/04/19 History Brimonidine Tartrate [Alphagan P 1 drops BOTH EYES BID 04/04/19 04/04/19 History 0.2% Ophth Soln] Latanoprost [Xalatan 0.005%] 1 drop BOTH EYES HS 04/04/19 04/04/19 History Losartan Potassium 100 mg PO DAILY 04/04/19 04/04/19 History Allergies Allergy/AdvReac Type Severity Reaction Status Date / Time No Known Allergies Allergy Verified 04/04/19 16:31 Surgical - Exam Vital Signs Temp Pulse Resp BP Pulse Ox 98.3 F 52 L 18 152/75 94 L 04/04/19 15:25 04/04/19 15:25 04/04/19 15:25 04/04/19 15:25 04/04/19 15:25 - General moderate distress - ENT no hearing loss - Neck no masses, no lymphadectomy - Respiratory normal respiratory effort - Abdomen Abdomen: soft, non tender, no organomegaly - Genitourinary normal penis with no external lesions, testicles non-tender Results - Labs 04/05/19 08:59 04/05/19 08:59 Abnormal Lab Results - Last 24 Hours (Table) 04/04/19 04/04/19 04/04/19 Range/Units 16:00 16:00 16:00 WBC 11.6 H (3.8-10.6) k/uL RBC (4.30-5.90) m/uL Neutrophils # 10.2 H (1.3-7.7) k/uL Lymphocytes # 0.7 L (1.0-4.8) k/uL Chloride (98-107) mmol/L Carbon Dioxide 21 L (22-30) mmol/L BUN 34 H (9-20) mg/dL Creatinine 2.73 H (0.66-1.25) mg/dL Glucose 123 H (74-99) mg/dL Calcium 8.3 L (8.4-10.2) mg/dL Total Bilirubin 1.6 H (0.2-1.3) mg/dL Creatine Kinase (55-170) U/L Urine Protein 1+ H (Negative) Urine Glucose (UA) Trace H (Negative) Urine Blood Moderate H (Negative) Ur Leukocyte Esterase Trace H (Negative) Urine RBC >182 H (0-5) /hpf Urine WBC 10 H (0-5) /hpf Urine Bacteria Rare H (None) /hpf Urine Mucus Rare H (None) /hpf 04/04/19 04/05/19 04/05/19 Range/Units 16:00 08:59 08:59 WBC (3.8-10.6) k/uL RBC 4.27 L (4.30-5.90) m/uL Neutrophils # (1.3-7.7) k/uL Lymphocytes # 0.7 L (1.0-4.8) k/uL Chloride 108 H (98-107) mmol/L Carbon Dioxide 21 L (22-30) mmol/L BUN 34 H (9-20) mg/dL Creatinine 2.58 H (0.66-1.25) mg/dL Glucose 101 H (74-99) mg/dL Calcium 7.8 L (8.4-10.2) mg/dL Total Bilirubin (0.2-1.3) mg/dL Creatine Kinase 772 H (55-170) U/L Urine Protein (Negative) Urine Glucose (UA) (Negative) Urine Blood (Negative) Ur Leukocyte Esterase (Negative) Urine RBC (0-5) /hpf Urine WBC (0-5) /hpf Urine Bacteria (None) /hpf Urine Mucus (None) /hpf Diabetes panel 04/04/19 04/05/19 Range/Units 16:00 08:59 Sodium 138 139 (137-145) mmol/L Potassium 4.5 4.4 (3.5-5.1) mmol/L Chloride 106 108 H (98-107) mmol/L Carbon Dioxide 21 L 21 L (22-30) mmol/L BUN 34 H 34 H (9-20) mg/dL Creatinine 2.73 H 2.58 H (0.66-1.25) mg/dL Glucose 123 H 101 H (74-99) mg/dL Calcium 8.3 L 7.8 L (8.4-10.2) mg/dL AST 45 (17-59) U/L ALT 25 (21-72) U/L Alkaline Phosphatase 63 (38-126) U/L Total Protein 6.7 (6.3-8.2) g/dL Albumin 3.9 (3.5-5.0) g/dL Calcium panel 04/04/19 04/05/19 Range/Units 16:00 08:59 Calcium 8.3 L 7.8 L (8.4-10.2) mg/dL Albumin 3.9 (3.5-5.0) g/dL Pituitary panel 04/04/19 04/05/19 Range/Units 16:00 08:59 Sodium 138 139 (137-145) mmol/L Potassium 4.5 4.4 (3.5-5.1) mmol/L Chloride 106 108 H (98-107) mmol/L Carbon Dioxide 21 L 21 L (22-30) mmol/L BUN 34 H 34 H (9-20) mg/dL Creatinine 2.73 H 2.58 H (0.66-1.25) mg/dL Glucose 123 H 101 H (74-99) mg/dL Calcium 8.3 L 7.8 L (8.4-10.2) mg/dL Adrenal panel 04/04/19 04/05/19 Range/Units 16:00 08:59 Sodium 138 139 (137-145) mmol/L Potassium 4.5 4.4 (3.5-5.1) mmol/L Chloride 106 108 H (98-107) mmol/L Carbon Dioxide 21 L 21 L (22-30) mmol/L BUN 34 H 34 H (9-20) mg/dL Creatinine 2.73 H 2.58 H (0.66-1.25) mg/dL Glucose 123 H 101 H (74-99) mg/dL Calcium 8.3 L 7.8 L (8.4-10.2) mg/dL Total Bilirubin 1.6 H (0.2-1.3) mg/dL AST 45 (17-59) U/L ALT 25 (21-72) U/L Alkaline Phosphatase 63 (38-126) U/L Total Protein 6.7 (6.3-8.2) g/dL Albumin 3.9 (3.5-5.0) g/dL Assessment and Plan (1) Right ureteral calculus Narrative/Plan: The patient's acute right flank pain, urgency and right hydronephrosis appeared to be secondary to a 2 mm calculus located at the right ureteral meatus. The patient's elevated BUN and creatinine are most likely related to preexistent renal disease which has been worsened by reduced fluid intake from nausea and vomiting. The patient has no evidence of urinary tract infection and statistically the likelihood of spontaneous passage of a stone this size and location is very high. The patient will be continued on tamsulosin but if his severe pain and nausea persist, right ureteroscopy with lithotripsy may be considered tomorrow. Current Visit: Yes Status: Acute Code(s): N20.1 - CALCULUS OF URETER SNOMED Code(s): 17023217
[2019-04-05] MEDS: LATANOPROST 0.005% OPHTH DROPS 2.5 ML BTL BOTH EYES SCH (21:54)
[2019-04-05] MEDS: ATORVASTATIN 40 MG TAB PO SCH (21:54)
[2019-04-06] MEDS: HEPARIN SODIUM,PORCINE 5,000 UNIT/ML 1 ML VIAL SQ SCH ×2 (00:55→06:35)
--- NOTE | 2019-04-06 07:51 | P.PN ---
Progress Note - Text Progress Note Date: 04/06/19 The patient is afebrile. He says he's had minimal if any pain since yesterday afternoon at around 4 PM. He no longer has nausea and wants breakfast. He has not recovered a calculus but no longer has urgency to void and it is possible that the most distal calculus has passed into his bladder. He will continue to strain his urine. If he remains comfortable this morning he could be discharged from my standpoint. He will see me in 1-2 weeks for follow-up.
[2019-04-06 08:22] LABS: Basophils % (A) 0 %; Eosinophils # (A) 0.1 k/uL (0-0.7); Eosinophils % (A) 1 %; HCT 39.7 % (39.0-53.0); HGB 12.8 gm/dL (13.0-17.5); Lymphocytes # (A) 0.5 k/uL (1.0-4.8); Lymphocytes % (A) 8 %; MCH 31.7 pg (25.0-35.0); MCHC 32.3 g/dL (31.0-37.0); MCV 97.9 fL (80.0-100.0); Monocytes # (A) 0.4 k/uL (0-1.0); Monocytes % (A) 6 %; Neutrophils # (A) 5.6 k/uL (1.3-7.7); Neutrophils % (A) 83 %; Platelet Count 161 k/uL (150-450); RBC 4.05 m/uL (4.30-5.90); RDW 13.5 % (11.5-15.5); WBC 6.7 k/uL (3.8-10.6)
[2019-04-06 08:26] VITALS: RESP 16
[2019-04-06 08:37] LABS: Calcium 7.6 mg/dL (8.4-10.2); Magnesium 1.9 mg/dL (1.6-2.3); Potassium 4.2 mmol/L (3.5-5.1)
[2019-04-06] MEDS: PANTOPRAZOLE 40 MG TABLET PO SCH (09:04)
[2019-04-06] MEDS: amLODIPine 5 MG TAB PO SCH (09:04)
[2019-04-06] MEDS: TAMSULOSIN 0.4 MG CAP.ER.24H PO SCH (09:04)
[2019-04-06] MEDS: BRIMONIDINE TARTRATE 0.2% DROPS 5 ML BTL BOTH EYES SCH (09:04)
[2019-04-06] MEDS: METOPROLOL TARTRATE 50 MG TAB PO SCH (09:04)
[2019-04-06] MEDS: SODIUM BICARBONATE TAB 650 MG TAB PO SCH (09:05)
[2019-04-06 14:07] VITALS: BP 146/84; PULSE 49; TEMP 97.9
--- NOTE | 2019-04-06 15:54 | P.PN ---
Subjective Patient is seen in follow-up for acute kidney injury. Patient's creatinine in December 2014 was 1.75. It was 1.86 on April 02. It is relatively stable today compared to yesterday at 2.67. Oral intake is good. He passed a kidney stone this morning. No vomiting or diarrhea. No abdominal pain. No hematuria or dysuria. Vital signs are stable. General: The patient appeared well nourished and normally developed. HEENT: Head exam is unremarkable. Neck is without jugular venous distension. LUNGS: Lungs are clear to auscultation and percussion. Breath sounds decreased. HEART: Rate and Rhythm are regular. First and second heart sounds normal. No murmurs, rubs or gallops. ABDOMEN: Abdominal exam reveals normal bowel sounds. Non-tender and non- distended. No evidence of peritonitis. EXTREMITITES: No clubbing, cyanosis, or edema. Objective - Vital Signs Vital signs: Vital Signs Temp 97.9 F 04/06/19 14:07 Pulse 49 L 04/06/19 14:07 Resp 16 04/06/19 14:07 BP 146/84 04/06/19 14:07 Pulse Ox 94 L 04/06/19 14:07 Intake & Output 04/05/19 04/06/19 04/06/19 18:59 06:59 18:59 Output Total 200 400 Balance -200 -400 Output: Urine 200 400 Other: Voiding Method Toilet Toilet - Labs CBC & Chem 7: 04/06/19 07:21 04/06/19 07:21 Labs: Abnormal Lab Results - Last 24 Hours (Table) 04/06/19 04/06/19 Range/Units 07:21 07:21 RBC 4.05 L (4.30-5.90) m/uL Hgb 12.8 L (13.0-17.5) gm/dL Lymphocytes # 0.5 L (1.0-4.8) k/uL Chloride 111 H (98-107) mmol/L Carbon Dioxide 19 L (22-30) mmol/L BUN 37 H (9-20) mg/dL Creatinine 2.67 H (0.66-1.25) mg/dL Calcium 7.6 L (8.4-10.2) mg/dL Assessment and Plan Plan: Assessment: 1. Acute kidney injury mostly prerenal secondary to poor oral intake. Creatinine peaked at 2.73 and is 2.67 today. 2. Chronic kidney disease. Patient's creatinine in December 2014 was 1.75. 3. Nephrolithiasis. 4. Metabolic acidosis secondary to acute kidney injury. 5. Benign hypertension. Controlled. 6. Proteinuria noted on UA. Discontinue nonspecific in the setting of acute kidney injury. We'll further workup outpatient. Plan: Maintain sodium bicarbonate. Avoid nephrotoxins. Continue to hold losartan. Maintain amlodipine for blood pressure control. Repeat BMP in 2-3 days postdischarge and follow up outpatient in the next 1-2 we eks.
--- NOTE | 2019-04-06 22:38 | DS ---
DISCHARGE SUMMARY DATE OF SERVICE: 04/06/2019 FINAL DIAGNOSES: 1. Acute renal failure, possibly prerenal as well as postrenal, improving. 2. Right nephrolithiasis with abdominal pain. 3. Hypertension. 4. Hyperlipidemia. 5. History of kidney stones. 6. History of glaucoma. 7. Remote history of nicotine dependence. 8. Chronic kidney disease, stage III. DISCHARGE DISPOSITION: The patient will be discharged in stable condition with guarded prognosis. HISTORY OF PRESENT ILLNESS: This 78-year-old gentleman with a past medical history of multiple medical problems was admitted with acute renal failure. He is followed by Dr. Killian in the outpatient setting. The patient also had multiple other medical issues, as mentioned. Patient was seen by Urology as well as Nephrology. There was a possibility that the patient might have passed the calculus, per Nephrology. The patient was advised to continue to strain the urine. Outpatient followup is suggested. Currently the creatinine is 2.67, which is rather stable. The patient will be discharged in stable condition with guarded prognosis. On exam, vitals are stable. CARDIOVASCULAR SYSTEM: S1, S2 muffled. ABDOMEN: Soft, obese. NERVOUS SYSTEM: No focal deficit. DISCHARGE ADVICE AND MEDICATIONS: 1. Diet is cardiac. 2. Activity limited until followup. 3. Follow up with Dr. Killian in 2 to 3 days. 4. Follow up with Dr Juarez as advised. 5. Follow up with Dr. Romeo as advised. 6. Avoid nephrotoxic medications and NSAIDs. 7. Brimonidine eye drops. 8. Lipitor 40 mg at bedtime. 9. Metoprolol 100 mg p.o. b.i.d. 10.Xalatan eyedrops 1 drop both eyes at bedtime. 11.Flomax 0.4 daily. 12.Norvasc 5 mg p.o. b.i.d. 13.Sodium bicarb 650 p.o. b.i.d. 14.Tylenol 650 q.6 p.r.n. MMODL / IJN: [id number] /
== END 2019-04-06 16:26 | disposition home or self-care (01) | DRG 694 ==
LOC: EC 15:11 → 4SSUR 17:21
PROVIDERS: ADMIT Internal Medicine; ATTEND Internal Medicine
DX: N13.2 Hydronephrosis with renal and ureteral calculous obstruction (principal); E87.2 Acidosis; N17.9 Acute kidney failure, unspecified; Z87.442 Personal history of urinary calculi; I12.9 Hypertensive chronic kidney disease with stage 1 through stage 4 chronic kidney disease, or unspecified chronic kidney disease; N18.3 Chronic kidney disease, stage 3 (moderate); E78.5 Hyperlipidemia, unspecified; H40.9 Unspecified glaucoma; Z87.891 Personal history of nicotine dependence
CPT/HCPCS: 36415; 51798; 80048; 80053; 81001; 82365; 82550; 83735; 85025; 96361; 96374; 96375; 99284

== ENCOUNTER → 2019-07-25 | Outpatient (CLI) | payer MEDICARE ==
[2019-07-25 12:14] LABS: Appearance,Urine Clear (Clear); Bilirubin,Urine Negative (Negative); Blood,Urine Negative (Negative); Color,Urine Yellow; Glucose,Urine (UA) Negative (Negative); Ketones,Urine Negative (Negative); Leukocyte Esterase,Urine Negative (Negative); Nitrite,Urine Negative (Negative); Protein,Urine Trace (Negative); Specific Gravity,Urine 1.019 (1.001-1.035); Urobilinogen,Urine <2.0 mg/dL (<2.0)
[2019-07-25 12:34] LABS: Basophils # (A) 0.1 k/uL (0-0.2); Basophils % (A) 1 %; Eosinophils # (A) 0.2 k/uL (0-0.7); Eosinophils % (A) 3 %; HCT 46.5 % (39.0-53.0); HGB 15.5 gm/dL (13.0-17.5); Lymphocytes % (A) 18 %; MCH 32.6 pg (25.0-35.0); MCHC 33.3 g/dL (31.0-37.0); MCV 97.8 fL (80.0-100.0); Mean Platelet Volume 6.7; Monocytes # (A) 0.3 k/uL (0-1.0); Monocytes % (A) 6 %; Neutrophils # (A) 4.1 k/uL (1.3-7.7); Neutrophils % (A) 72 %; Platelet Count 203 k/uL (150-450); RBC 4.75 m/uL (4.30-5.90); RDW 13.8 % (11.5-15.5); WBC 5.7 k/uL (3.8-10.6)
[2019-07-25 18:44] LABS: African American GFR (CKD) 55.8 (60.0-200.0); Albumin/Globulin Ratio 1.82 (1.60-3.17); Anion Gap 7.3 mmol/L (4.00-12.00); BUN/Creat Ratio 14.29 Ratio (12.00-20.00); Calcium 8.9 mg/dL (8.7-10.3); Carbon Dioxide 25.7 mmol/L (21.6-31.8); Globulin 2.2 g/dL (1.6-3.3); Potassium 4.6 mmol/L (3.5-5.5); Total Protein 6.2 g/dL (6.2-8.2); Uric Acid 5.9 mg/dL (3.7-8.7)
[2019-07-25 18:46] LABS: Iron Saturation 43.44 (15.00-50.00)
[2019-07-25 18:53] LABS: Ferritin 224.1 ng/mL (22.0-322.0); Vitamin D 25 Hydroxy 26.9 ng/mL (30.0-100.0)
== END | disposition home or self-care (01) ==
LOC: LABWHC1 11:08
PROVIDERS: ATTEND Nurse Practitioner Family
DX: N17.9 Acute kidney failure, unspecified (principal); D64.9 Anemia, unspecified; M10.9 Gout, unspecified; R80.9 Proteinuria, unspecified; N39.0 Urinary tract infection, site not specified; N25.81 Secondary hyperparathyroidism of renal origin; E55.9 Vitamin D deficiency, unspecified
CPT/HCPCS: 36415; 80053; 81003; 82306; 82728; 83540; 83550; 83970; 84550; 85025

== ENCOUNTER → 2021-03-14 | Outpatient (CLI) | payer MEDICARE ==
--- NOTE | 2021-03-14 13:24 | XR ---
Orbits HISTORY: Z18.10 4 views of the orbits submitted There is a focus of metallic density superimposed over the right frontal sinus measuring approximatel y 3 mm consistent with patient's history of shrapnel injury. Bone mineralization is maintained. Orbit s are intact, no evident intraorbital foreign body. Paranasal sinuses are well aerated. IMPRESSION: radiopaque foreign body as described.
== END | disposition home or self-care (01) ==
LOC: RADXRMAIN 11:17
PROVIDERS: ATTEND Physical Medicine & Rehabilitation
DX: Z18.10 Retained metal fragments, unspecified (principal)
CPT/HCPCS: 70030

== ENCOUNTER → 2023-08-09 | Outpatient (CLI) | payer MEDICARE ==
[2023-08-09 16:16] LABS: Prostate Specific Antigen 0.02 ng/mL (0.000-6.500)
[2023-08-09 16:53] LABS: Testosterone <10.00 ng/dL (86.98-780.10)
== END | disposition home or self-care (01) ==
LOC: LABWHC1 10:54
PROVIDERS: ATTEND Radiology Radiation Oncology
DX: C61 Malignant neoplasm of prostate (principal); Z79.899 Other long term (current) drug therapy
CPT/HCPCS: 36415; 84153; 84403

== ENCOUNTER → 2023-10-27 | Outpatient (CLI) | payer MEDICARE ==
--- NOTE | 2023-10-27 15:50 | XR ---
EXAMINATION TYPE: XR KUB DATE OF EXAM: 10/27/2023 COMPARISON: 11/13/2022 HISTORY: Pain TECHNIQUE: One view abdominal series FINDINGS: The osseous structures are intact. The bowel gas pattern is nonspecific. Hypertrophic and degenerati ve changes spine. Bilateral hip arthropathy. Bone island overlying the right femoral head. Hypertroph ic SI joint arthropathy. There is a 2 mm punctate calcification overlying the right kidney. IMPRESSION: 1. Suspected 2 mm upper pole right renal calculus.
== END | disposition home or self-care (01) ==
LOC: RADXRMAIN 15:06
PROVIDERS: ATTEND Urology
DX: N20.0 Calculus of kidney (principal)
CPT/HCPCS: 74018

== ENCOUNTER 2023-12-24 23:28 | Observation (INO) | payer MEDICARE ==
--- NOTE | 2023-12-24 23:58 | ED ---
Weakness HPI - General Chief complaint: Weakness Stated complaint: Weakness, Vomiting Time Seen by Provider: 12/24/23 23:33 Source: patient, family Mode of arrival: wheelchair Limitations: no limitations - History of Present Illness Initial comments: This patient is an 83-year-old man here to have evaluation for generalized weakness and fatigue. Patient states that he also has been having some problems with dysuria but this is a more longstanding issue related to his history of prostate cancer with radiation therapy. Patient had not noted fevers at home. He does have nonproductive cough but no dyspnea. Poor oral intake, but no vomiting. No diarrhea. MD Complaint: generalized weakness, lack of energy, difficulty walking Onset/Timin -: week(s) Location: generalized Severity: moderate Consistency: constant Improves with: none Worsens with: exertion Associated Symptoms: dysuria - Related Data Home Medications Medication Instructions Recorded Confirmed Metoprolol Tartrate [Lopressor] 100 mg PO BID 12/30/14 04/04/19 Atorvastatin [Lipitor] 40 mg PO HS 04/04/19 04/04/19 Brimonidine Tartrate [Alphagan P 1 drops BOTH EYES BID 04/04/19 04/04/19 0.2% Ophth Soln] Latanoprost [Xalatan 0.005%] 1 drop BOTH EYES HS 04/04/19 04/04/19 Previous Rx's Medication Instructions Recorded Tamsulosin HCl [Flomax] 0.4 mg PO DAILY #7 cap 04/03/19 Acetaminophen Tab [Tylenol] 650 mg PO Q6HR PRN tab 04/06/19 Sodium Bicarbonate Tab 650 mg PO BID #60 tab 04/06/19 amLODIPine [Norvasc] 5 mg PO BID #60 tab 04/06/19 polyethylene glycoL 3350 [Miralax] 17 gm PO DAILY #30 packet 12/26/23 Allergies Allergy/AdvReac Type Severity Reaction Status Date / Time No Known Allergies Allergy Verified 04/04/19 16:31 Review of Systems ROS Statement: Those systems with pertinent positive or pertinent negative responses have been documented in the HPI. ROS Other: All systems not noted in ROS Statement are negative. Constitutional: Denies: fever, chills ENT: Denies: throat pain, congestion Respiratory: Reports: cough (Patient states chronic cough going on for years). Denies: dyspnea, wheezes Cardiovascular: Denies: chest pain, palpitations, orthopnea, edema Gastrointestinal: Denies: abdominal pain, nausea, vomiting, diarrhea, constipation Genitourinary: Reports: dysuria. Denies: frequency, hematuria Musculoskeletal: Denies: back pain Skin: Denies: rash Neurological: Denies: headache, weakness, confusion Past Medical History Past Medical History: Cancer, Hyperlipidemia, Hypertension Additional Past Medical History / Comment(s): KIDNEY STONES, GLAUCOMA, PROSTATE CA History of Any Multi-Drug Resistant Organisms: None Reported Past Surgical History: Orthopedic Surgery Additional Past Surgical History / Comment(s): HEEL SPURS REMOVED Past Psychological History: No Psychological Hx Reported Past Alcohol Use History: None Reported Past Drug Use History: None Reported - Past Family History Father Family Medical History: Cancer Mother Family Medical History: Cancer General Exam Limitations: no limitations General appearance: alert, in no apparent distress Head exam: Present: atraumatic, normocephalic Eye exam: Present: normal appearance Neck exam: Present: normal inspection Respiratory exam: Present: normal lung sounds bilaterally. Absent: respiratory distress, wheezes, rales, rhonchi, stridor, accessory muscle use Cardiovascular Exam: Present: regular rate, normal rhythm, normal heart sounds. Absent: systolic murmur, diastolic murmur, rubs, gallop GI/Abdominal exam: Present: soft. Absent: distended, tenderness, guarding, rebound, rigid, mass Extremities exam: Present: normal inspection, normal capillary refill. Absent: pedal edema, calf tenderness Back exam: Present: normal inspection. Absent: CVA tenderness (R), CVA tend erness (L) Neurological exam: Present: alert Skin exam: Present: warm, dry, intact, normal color. Absent: rash Course Vital Signs 12/24/23 12/25/23 12/25/23 23:29 00:12 03:41 Temperature 100.1 F H Pulse Rate 72 65 61 Respiratory 16 18 17 Rate Blood Pressure 93/51 103/72 110/54 O2 Sat by Pulse 97 Oximetry 12/25/23 12/25/23 04:09 05:00 Temperature 98.8 F Pulse Rate 52 L Respiratory 19 Rate Blood Pressure 114/68 O2 Sat by Pulse 95 Oximetry EKG Findings - EKG Results: EKG: normal QRS, normal ST/T EKG shows: atrial fibrillation (Rate 99 bpm) - Blocks, Philipp, Hypertrophy, ST Abn: QRS axis and voltage: left axis deviation (-30 to -90) (Borderline) Medical Decision Making - Medical Decision Making Patient is 83-year-old man here with generalized weakness and fatigue. He does have low-grade fever in emergency department but no definite source is identified. Family maintains that he has definitely had acute change in his mental status/level of function at home and in light of this and low-grade temperature here will admit overnight to have resulted cultures and see if an infection is indeed developing. The patient had chest x-ray which I interpreted as negative for acute infiltrate, pneumothorax, congestive heart failure Was pt. sent in by a medical professional or institution (, PA, PROJECT CONTROLS SPECIALIST, urgent care, hospital, or senior care...) When possible be specific @ -[No] Did you speak to anyone other than the patient for history (EMS, parent, family, police, friend...)? What history was obtained from this source @ -[Only contributed to history Did you review nursing and triage notes (agree or disagree)? Why? @ -[I reviewed and agree with nursing and triage notes] Were old charts reviewed (outside hosp., previous admission, EMS record, old EKG, old radiological studies, urgent care reports/EKG's, senior care records)? Report findings @ -[No old charts were reviewed] Differential Diagnosis (chest pain, altered mental status, abdominal pain women, abdominal pain men, vaginal bleeding, weakness, fever, dyspnea, syncope, headache, dizziness, GI bleed, back pain, seizure, CVA, palpatations, mental health, musculoskeletal)? @ -[Differential Weakness: Hypoglycemia, shock, sepsis, hyponatremia, anemia, infection, MA, ETOH, adverse medicine reaction, overdose, stroke, this is not meant to be an all-inclusive list. EKG interpreted by me (3pts min.). @ -[I interpreted as above] X-rays interpreted by me (1pt min.). @ -[I interpreted as above CT interpreted by me (1pt min.). @ -[None done] U/S interpreted by me (1pt. min.). @ -[None done] What testing was considered but not performed or refused? (CT, X-rays, U/S, labs)? Why? @ -[None] What meds were considered but not given or refused? Why? @ -[None] Did you discuss the management of the patient with other professionals (professionals i.e. , PA, PROJECT CONTROLS SPECIALIST, lab, RT, psych nurse, social studies department chair, vocational rehabilitation teacher, teacher, biological technical officer, therapeutic case manager)? Give summary @ -[Case discussed with admitting physician a, nd treatment recommendations incorporated, Was smoking cessation discussed for >3mins.? @ -[No] Was critical care preformed (if so, how long)? @ -[No] Were there social determinants of health that impacted care today? How? (Homelessness, low income, unemployed, alcoholism, drug addiction, transportation, low edu. Level, literacy, decrease access to med. care, fdc, rehab)? @ -[No] Was there de-escalation of care discussed even if they declined (Discuss DNR or withdrawal of care, Hospice)? DNR status @ -[No] What co-morbidities impacted this encounter? (DM, HTN, Smoking, COPD, CAD, Cancer, CVA, ARF, Chemo, Hep., AIDS, mental health diagnosis, sleep apnea, mo rbid obesity)? @ -[Previous prostate cancer Was patient admitted / discharged? Hospital course, mention meds given and route, prescriptions, significant lab abnormalities, going to OR and other perti nent info. @ -[Above Undiagnosed new problem with uncertain prognosis? @ -[No] Drug Therapy requiring intensive monitoring for toxicity (Heparin, Nitro, Insulin, Cardizem)? @ -[No] Were any procedures done? @ -[No] Diagnosis/symptom? @ -[Acute generalized weakness and fatigue Acute on chronic dysuria Microscopic hematuria Acute, or Chronic, or Acute on Chronic? @ -[As above Uncomplicated (without systemic symptoms) or Complicated (systemic symptoms)? @ -[Complicated by generalized weakness and fatigue Side effects of treatment? @ -[No] Exacerbation, Progression, or Severe Exacerbation? @ -[No] Poses a threat to life or bodily function? How? (Chest pain, USA, MA, pneumonia, PE, COPD, DKA, ARF, appy, cholecystitis, CVA, Diverticulitis, Homicidal, Suicidal, threat to staff... and all critical care pts) @ -[No] - Lab Data Result diagrams: 12/26/23 03:55 12/26/23 03:55 Lab Results 12/24/23 12/24/23 12/24/23 Range/Units 23:56 23:56 23:56 WBC 8.5 (3.8-10.6) k/uL RBC 3.90 L (4.30-5.90) m/uL Hgb 12.5 L (13.0-17.5) gm/dL Hct 38.1 L (39.0-53.0) % MCV 97.6 (80.0-100.0) fL MCH 32.1 (25.0-35.0) pg MCHC 32.9 (31.0-37.0) g/dL RDW 12.8 (11.5-15.5) % Plt Count 263 (150-450) k/uL MPV 8.1 Neutrophils % 86 % Lymphocytes % 6 % Monocytes % 5 % Eosinophils % 1 % Basophils % 0 % Neutrophils # 7.3 (1.3-7.7) k/uL Lymphocytes # 0.5 L (1.0-4.8) k/uL Monocytes # 0.4 (0-1.0) k/uL Eosinophils # 0.1 (0-0.7) k/uL Basophils # 0.0 (0-0.2) k/uL Sodium 138 (137-145) mmol/L Potassium 4.4 (3.5-5.1) mmol/L Chloride 107 (98-107) mmol/L Carbon Dioxide 22 (22-30) mmol/L Anion Gap 9 mmol/L BUN 29 H (9-20) mg/dL Creatinine 1.55 H (0.66-1.25) mg/dL Est GFR (CKD-EPI)AfAm 48 (>60 ml/min/1.73 sqM) Est GFR (CKD-EPI)NonAf 41 (>60 ml/min/1.73 sqM) Glucose 139 H (74-99) mg/dL Lactic Ac Sepsis Rflx Plasma Lactic Acid Vishnu 2.2 H* (0.7-2.0) mmol/L Calcium 8.5 (8.4-10.2) mg/dL Total Bilirubin 0.8 (0.2-1.3) mg/dL AST 26 (17-59) U/L ALT 20 (4-49) U/L Alkaline Phosphatase 65 (38-126) U/L Total Protein 6.7 (6.3-8.2) g/dL Albumin 3.6 (3.5-5.0) g/dL Urine Color Urine Appearance (Clear) Urine pH (5.0-8.0) Ur Specific Radcliffe (1.001-1.035) Urine Protein (Negative) Urine Glucose (UA) (Negative) Urine Ketones (Negative) Urine Blood (Negative) Urine Nitrite (Negative) Urine Bilirubin (Negative) Urine Urobilinogen (<2.0) mg/dL Ur Leukocyte Esterase (Negative) Urine RBC (0-5) /hpf Urine WBC (0-5) /hpf Urine Mucus (None) /hpf Influenza Type A (PCR) (Not Detectd) Influenza Type B (PCR) (Not Detectd) RSV (PCR) (Not Detectd) SARS-CoV-2 (PCR) (Not Detectd) 12/24/23 12/25/23 12/25/23 Range/Units 23:56 00:55 01:43 WBC (3.8-10.6) k/uL RBC (4.30-5.90) m/uL Hgb (13.0-17.5) gm/dL Hct (39.0-53.0) % MCV (80.0-100.0) fL MCH (25.0-35.0) pg MCHC (31.0-37.0) g/dL RDW (11.5-15.5) % Plt Count (150-450) k/uL MPV Neutrophils % % Lymphocytes % % Monocytes % % Eosinophils % % Basophils % % Neutrophils # (1.3-7.7) k/uL Lymphocytes # (1.0-4.8) k/uL Monocytes # (0-1.0) k/uL Eosinophils # (0-0.7) k/uL Basophils # (0-0.2) k/uL Sodium (137-145) mmol/L Potassium (3.5-5.1) mmol/L Chloride (98-107) mmol/L Carbon Dioxide (22-30) mmol/L Anion Gap mmol/L BUN (9-20) mg/dL Creatinine (0.66-1.25) mg/dL Est GFR (CKD-EPI)AfAm (>60 ml/min/1.73 sqM) Est GFR (CKD-EPI)NonAf (>60 ml/min/1.73 sqM) Glucose (74-99) mg/dL Lactic Ac Sepsis Rflx Y Plasma Lactic Acid Vishnu (0.7-2.0) mmol/L Calcium (8.4-10.2) mg/dL Total Bilirubin (0.2-1.3) mg/dL AST (17-59) U/L ALT (4-49) U/L Alkaline Phosphatase (38-126) U/L Total Protein (6.3-8.2) g/dL Albumin (3.5-5.0) g/dL Urine Color Yellow Urine Appearance Clear (Clear) Urine pH 5.5 (5.0-8.0) Ur Specific Radcliffe 1.020 (1.001-1.035) Urine Protein 1+ H (Negative) Urine Glucose (UA) Negative (Negative) Urine Ketones Negative (Negative) Urine Blood Negative (Negative) Urine Nitrite Negative (Negative) Urine Bilirubin Negative (Negative) Urine Urobilinogen <2.0 (<2.0) mg/dL Ur Leukocyte Esterase Negative (Negative) Urine RBC 1 (0-5) /hpf Urine WBC 6 H (0-5) /hpf Urine Mucus Few H (None) /hpf Influenza Type A (PCR) Not Detected (Not Detectd) Influenza Type B (PCR) Not Detected (Not Detectd) RSV (PCR) Not Detected (Not Detectd) SARS-CoV-2 (PCR) Not Detected (Not Detectd) Disposition Clinical Impression: Generalized weakness, Dysuria, Hematuria Disposition: ADMITTED IP TO THIS HOSP Condition: Stable
[2023-12-25] MEDS: SODIUM CHLORIDE 0.9% 1,000 ML IV STA (00:12)
[2023-12-25] MEDS: SODIUM CHLORIDE 0.9% 1,000 ML IV ONE (00:13)
[2023-12-25 00:30] LABS: Basophils % (A) 0 %; Eosinophils # (A) 0.1 k/uL (0-0.7); Eosinophils % (A) 1 %; HCT 38.1 % (39.0-53.0); HGB 12.5 gm/dL (13.0-17.5); Lymphocytes # (A) 0.5 k/uL (1.0-4.8); Lymphocytes % (A) 6 %; MCH 32.1 pg (25.0-35.0); MCHC 32.9 g/dL (31.0-37.0); MCV 97.6 fL (80.0-100.0); Mean Platelet Volume 8.1; Monocytes # (A) 0.4 k/uL (0-1.0); Monocytes % (A) 5 %; Neutrophils # (A) 7.3 k/uL (1.3-7.7); Neutrophils % (A) 86 %; Platelet Count 263 k/uL (150-450); RDW 12.8 % (11.5-15.5); WBC 8.5 k/uL (3.8-10.6)
[2023-12-25 00:43] LABS: ALT 20 U/L (4-49); AST 26 U/L (17-59); African American GFR (CKD) 48 (>60 ml/min/1.73 sqM); Albumin 3.6 g/dL (3.5-5.0); Alkaline Phosphatase 65 U/L (38-126); Anion Gap 9 mmol/L; Blood Urea Nitrogen 29 mg/dL (9-20); Calcium 8.5 mg/dL (8.4-10.2); Carbon Dioxide 22 mmol/L (22-30); Chloride 107 mmol/L (98-107); Glucose 139 mg/dL (74-99); Non-African American GFR(CKD) 41 (>60 ml/min/1.73 sqM); Potassium 4.4 mmol/L (3.5-5.1); Sodium 138 mmol/L (137-145); Total Bilirubin 0.8 mg/dL (0.2-1.3); Total Protein 6.7 g/dL (6.3-8.2)
--- NOTE | 2023-12-25 01:11 | XR ---
EXAM: XR Chest, 2 Views CLINICAL HISTORY: fever TECHNIQUE: Frontal and lateral views of the chest. COMPARISON: January 30, 2016 FINDINGS: Lungs: Unremarkable. No infiltration, atelectasis or mass density. Pleural space: Unremarkable. No pneumothorax. No pleural fluid. Heart: Unremarkable. No cardiomegaly. Mediastinum: Unremarkable. Normal mediastinal contour. Bones/joints: No acute abnormalities. IMPRESSION: No acute findings in the chest.
[2023-12-25] MEDS: SIMETHICONE 80 MG CHEWABLE PO STA (01:36)
[2023-12-25 02:14] LABS: Appearance,Urine Clear (Clear); Bilirubin,Urine Negative (Negative); Blood,Urine Negative (Negative); Color,Urine Yellow; Glucose,Urine (UA) Negative (Negative); Ketones,Urine Negative (Negative); Leukocyte Esterase,Urine Negative (Negative); Mucus,Urine Few /hpf; Nitrite,Urine Negative (Negative); PH, Urine 5.5 (5.0-8.0); Protein,Urine 1+ (Negative); RBC,Urine 1 /hpf (0-5); Urobilinogen,Urine <2.0 mg/dL (<2.0); WBC,Urine 6 /hpf (0-5)
[2023-12-25] MEDS: SODIUM CHLORIDE 0.9% 500 ML 500 ML IV STA (02:38)
[2023-12-25] MEDS: ONDANSETRON 4 MG/2 ML VIAL IVP STA (02:43)
[2023-12-25] MEDS: PHENAZOPYRIDINE 100 MG TAB PO STA (02:47)
[2023-12-25] MEDS ORDERED: NALOXONE 0.4 MG/ML 1 ML VIAL IV PRN (03:15)
[2023-12-25] MEDS: SODIUM CHLORIDE 0.9% 1,000 ML IV SCH (03:40)
--- NOTE | 2023-12-25 04:35 | P.HPIM ---
History of Present Illness H&P Date: 12/25/23 Patient is a 83-year-old male with a PMH of prostate cancer status post radiation, CKD stage IIIb, hypertension, and hyperlipidemia who presents to the emergency room with multiple complaints. Patient notes that he has a longstanding history of urinary urgency and frequency due to significant BPH and recently diagnosed prostate cancer for which she underwent radiation in June 2023. He has since been following with Dr. Calvo. Reports that over the past few weeks, he has been getting progressively weaker, has poor appetite, low energy, and intermittent chills with diaphoresis. Does report chronic dysuria without hematuria. Denies chest discomfort, shortness of breath, abdominal pain, diarrhea. Chest x-ray in the emergency room was unremarkable with EKG showing a flutter at [address]/T wave changes noted as reviewed by me. Laboratory evaluation was remarkable for lactic acid 2.2, BUN 29, creatinine 1.55 (better than baseline), with UA showing 6 WBCs and 1+ proteins. The patient had a Tmax of 100.1 F in the emergency room. ED documentation reviewed and case discussed with ED provider. Review of systems: Pertinent positives and negatives as discussed in HPI, a complete review of systems was performed and all other systems are negative. Physical examination: Vital signs reviewed General: non toxic, no distress, appears at stated age, n overweight Derm: no unusual rashes/lesions, warm Head: atraumatic, normocephalic, symmetric Eyes: EOMI, no lid lag, anicteric sclera, pupils equal round reactive to light ENT: Nose and ears atraumatic Neck: No cervical lymphadenopathy, trachea midline, supple Mouth: no lip lesion, mucus membranes moist Cardiovascular: S1S2 reg, no murmur, positive dorsalis pedis pulse bilateral, no edema Lungs: CTA bilateral, no rhonchi, no rales, no accessory muscle use Abdominal: soft, nontender to palpation, no guarding Ext: muscle strength 5 out of 5 in all 4 extremities grossly, no gross muscle atrophy, no contractures, Neuro: CN II-XI grossly intact, no gross focal neuro deficits Psych: Alert, oriented, appropriate affect Assessment: Lactic acidosis with low-grade fever, unclear etiology Urinary complaints w/ hx of prostate cancer Chronic conditions: CKD, hypertension, hyperlipidemia Imaging: Chest x-ray in the emergency room was unremarkable with EKG showing a flutter at [address]/T wave changes noted as reviewed by me. Data Review: Laboratory evaluation was remarkable for lactic acid 2.2, BUN 29, creatinine 1.55 (better than baseline), with UA showing 6 WBCs and 1+ proteins. The patient had a Tmax of 100.1 F in the emergency room. Plan: Monitor lactic acid level for resolution Continue with ceftriaxone empirically for now Continue with home medications Follow-up blood cultures to rule out bacteremia C/w IVFs NS 130 ml/hr DVT prophylaxis: Lovenox subcu The patient is admitted with an anticipated less than 2 midnight stay for evaluation of lactic acidosis CODE STATUS: Full Code Discussed with: Patient Anticipated discharge place: Home Past Medical History Past Medical History: Cancer, Hyperlipidemia, Hypertension Additional Past Medical History / Comment(s): KIDNEY STONES, GLAUCOMA, PROSTATE CA History of Any Multi-Drug Resistant Organisms: None Reported Past Surgical History: Orthopedic Surgery Additional Past Surgical History / Comment(s): HEEL SPURS REMOVED Past Psychological History: No Psychological Hx Reported Past Alcohol Use History: None Reported Past Drug Use History: None Reported - Past Family History Father Family Medical History: Cancer Mother Family Medical History: Cancer Medications and Allergies Home Medications Medication Instructions Recorded Confirmed Type Metoprolol Tartrate [Lopressor] 100 mg PO BID 12/30/14 04/04/19 History Tamsulosin HCl [Flomax] 0.4 mg PO DAILY #7 cap 04/03/19 04/04/19 Rx Atorvastatin [Lipitor] 40 mg PO HS 04/04/19 04/04/19 History Brimonidine Tartrate [Alphagan P 1 drops BOTH EYES BID 04/04/19 04/04/19 History 0.2% Ophth Soln] Latanoprost [Xalatan 0.005%] 1 drop BOTH EYES HS 04/04/19 04/04/19 History Acetaminophen Tab [Tylenol] 650 mg PO Q6HR PRN tab 04/06/19 Rx Sodium Bicarbonate Tab 650 mg PO BID #60 tab 04/06/19 Rx amLODIPine [Norvasc] 5 mg PO BID #60 tab 04/06/19 Rx Allergies Allergy/AdvReac Type Severity Reaction Status Date / Time No Known Allergies Allergy Verified 04/04/19 16:31 Physical Exam Vitals: Vital Signs Temp Pulse Resp BP Pulse Ox 12/25/23 04:09 98.8 F 12/25/23 03:41 61 17 110/54 12/25/23 00:12 65 18 103/72 12/24/23 23:29 100.1 F H 72 16 93/51 97 Intake and Output 12/24/23 12/24/23 12/25/23 14:59 22:59 06:59 Other: Weight 96.162 kg Results CBC & Chem 7: 12/24/23 23:56 12/24/23 23:56 Labs: Abnormal Lab Results - Last 24 Hours (Table) 12/24/23 12/24/23 12/24/23 Range/Units 23:56 23:56 23:56 RBC 3.90 L (4.30-5.90) m/uL Hgb 12.5 L (13.0-17.5) gm/dL Hct 38.1 L (39.0-53.0) % Lymphocytes # 0.5 L (1.0-4.8) k/uL BUN 29 H (9-20) mg/dL Creatinine 1.55 H (0.66-1.25) mg/dL Glucose 139 H (74-99) mg/dL Plasma Lactic Acid Vishnu 2.2 H* (0.7-2.0) mmol/L Urine Protein (Negative) Urine WBC (0-5) /hpf Urine Mucus (None) /hpf 12/25/23 Range/Units 01:43 RBC (4.30-5.90) m/uL Hgb (13.0-17.5) gm/dL Hct (39.0-53.0) % Lymphocytes # (1.0-4.8) k/uL BUN (9-20) mg/dL Creatinine (0.66-1.25) mg/dL Glucose (74-99) mg/dL Plasma Lactic Acid Vishnu (0.7-2.0) mmol/L Urine Protein 1+ H (Negative) Urine WBC 6 H (0-5) /hpf Urine Mucus Few H (None) /hpf
[2023-12-25] MEDS ORDERED: MAG HYDROX/AL HYDROX/SIMETH 30 ML CUP PO PRN (06:00)
[2023-12-25] MEDS: ENOXAPARIN 40 MG/0.4 ML SYRINGE SQ SCH (08:54)
[2023-12-25] MEDS ORDERED: FAMOTIDINE 20 MG TAB PO SCH (09:00)
[2023-12-25] MEDS: FAMOTIDINE 20 MG TAB PO SCH (10:58)
[2023-12-25] MEDS: ACETAMINOPHEN TAB 325 MG TAB PO PRN (17:35)
[2023-12-26] MEDS: guaiFENesin-Coden 100-10MG/5ML 10 ML CUP PO PRN (02:20)
[2023-12-26 04:20] LABS: Basophils % (A) 0 %; Eosinophils # (A) 0.1 k/uL (0-0.7); Eosinophils % (A) 2 %; HCT 31.9 % (39.0-53.0); HGB 10.4 gm/dL (13.0-17.5); Lymphocytes # (A) 0.5 k/uL (1.0-4.8); Lymphocytes % (A) 9 %; MCH 32.4 pg (25.0-35.0); MCHC 32.5 g/dL (31.0-37.0); MCV 99.6 fL (80.0-100.0); Mean Platelet Volume 7.6; Monocytes # (A) 0.3 k/uL (0-1.0); Monocytes % (A) 5 %; Neutrophils # (A) 4.7 k/uL (1.3-7.7); Neutrophils % (A) 83 %; Platelet Count 199 k/uL (150-450); RDW 12.5 % (11.5-15.5); WBC 5.6 k/uL (3.8-10.6)
[2023-12-26 04:30] LABS: African American GFR (CKD) 65 (>60 ml/min/1.73 sqM); Anion Gap 6 mmol/L; Blood Urea Nitrogen 18 mg/dL (9-20); Calcium 7.7 mg/dL (8.4-10.2); Carbon Dioxide 20 mmol/L (22-30); Chloride 113 mmol/L (98-107); Glucose 113 mg/dL (74-99); Non-African American GFR(CKD) 56 (>60 ml/min/1.73 sqM); Potassium 4.4 mmol/L (3.5-5.1); Sodium 139 mmol/L (137-145)
[2023-12-26 08:23] VITALS: BP 137/74; PULSE 68; RESP 17; TEMP 98.7
[2023-12-26] MEDS ORDERED: TAMSULOSIN 0.4 MG CAP.ER.24H PO SCH (12:00)
[2023-12-26] MEDS ORDERED: amLODIPine 5 MG TAB PO SCH (12:00)
[2023-12-26] MEDS ORDERED: SODIUM BICARBONATE TAB 650 MG TAB PO SCH (12:00)
[2023-12-26] MEDS ORDERED: METOPROLOL TARTRATE 50 MG TAB PO SCH (12:00)
--- NOTE | 2023-12-26 12:14 | P.DS ---
Providers Date of admission: 12/25/23 03:18 Expected date of discharge: 12/26/23 Attending physician: Gosia Mckeon MD Consults: 12/25/23 04:35 Consult Physician Urgent Consulting Provider: Vikas Dugan Consult Reason/Comments: bph with urinary complaints Do you want consulting provider notified?: Yes Primary care physician: [facility] Course: Discharge Diagnosis: Acute encephalopathy Acute kidney injury Lactic acidosis Dysuria with history of prostate cancer Hypertension Dyslipidemia Hospital Course: 83-year-old male with a PMH of prostate cancer status post radiation, CKD stage IIIb, hypertension, and hyperlipidemia who presents to the emergency room with multiple complaints. Family was concerned for confusion. He has also been feeling weak and has had poor appetite. He has also been having increased dysuria. Chest x-ray in the emergency room was unremarkable with EKG showing a flutter at [address]/T wave changes noted. Laboratory evaluation was remarkable for lactic acid 2.2, BUN 29, creatinine 1.55, with UA showing 6 WBCs and 1+ proteins, negative for leukocyte esterase and nitrites. The patient had a Tmax of 100.1 F in the emergency room. Respiratory viral panel was negative. Patient was initially started on IV ceftriaxone. Renal function improved with IV fluids. Weakness improved. Patient has been having constipation ever since his radiation. Patient to be discharged home with MiraLAX, no antibiotics warranted, he will follow-up with urology outpatient. Patient seen and examined at bedside. Vital signs reviewed and stable. General: Nontoxic, no distress, appears at stated age Derm: Warm, dry Head: Atraumatic, normocephalic, symmetric Eyes: EOMI, no lid lag, anicteric sclera Mouth: No lip lesion, mucus membranes moist Cardiovascular: S1S2 reg, no murmur Lungs: CTA bilateral, no rhonchi, no rales, no accessory muscle use Abdominal: Soft, nontender to palpation, no guarding, no appreciable organomegaly Ext: No gross muscle atrophy, no edema, no contractures Neuro: CN II-XI grossly intact, no focal neuro deficits Psych: Alert, oriented, appropriate affect A total of 33 minutes of time were spent preparing this complex discharge summary. Patient was discharged on 12/26/2023 at 1210. Patient Condition at Discharge: Stable Plan - Discharge Summary Discharge Rx Participant: No New Discharge Prescriptions: New polyethylene glycoL 3350 [Miralax] 17 gm PO DAILY #30 packet Continue Metoprolol Tartrate [Lopressor] 100 mg PO BID Tamsulosin HCl [Flomax] 0.4 mg PO DAILY #7 cap Brimonidine Tartrate [Alphagan P 0.2% Ophth Soln] 1 drops BOTH EYES BID Latanoprost [Xalatan 0.005%] 1 drop BOTH EYES HS Atorvastatin [Lipitor] 40 mg PO HS amLODIPine [Norvasc] 5 mg PO BID #60 tab Sodium Bicarbonate Tab 650 mg PO BID #60 tab Acetaminophen Tab [Tylenol] 650 mg PO Q6HR PRN tab PRN Reason: Mild Pain Or Fever > 100.5 Discharge Medication List Metoprolol Tartrate [Lopressor] 100 mg PO BID 12/30/14 [History] Tamsulosin HCl [Flomax] 0.4 mg PO DAILY #7 cap 04/03/19 [Rx] Atorvastatin [Lipitor] 40 mg PO HS 04/04/19 [History] Brimonidine Tartrate [Alphagan P 0.2% Ophth Soln] 1 drops BOTH EYES BID 04/04/19 [History] Latanoprost [Xalatan 0.005%] 1 drop BOTH EYES HS 04/04/19 [History] Acetaminophen Tab [Tylenol] 650 mg PO Q6HR PRN tab 04/06/19 [Rx] Sodium Bicarbonate Tab 650 mg PO BID #60 tab 04/06/19 [Rx] amLODIPine [Norvasc] 5 mg PO BID #60 tab 04/06/19 [Rx] polyethylene glycoL 3350 [Miralax] 17 gm PO DAILY #30 packet 12/26/23 [Rx] Follow up Appointment(s)/Referral(s): Chava Killian DO [Primary Care Provider] - 1-2 days Vikas Dugan MD [STAFF PHYSICIAN] - 1 Week Patient Instructions/Handouts: Constipation (DC), Acute Kidney Injury (DC), Encephalopathy (DC) Discharge Disposition: HOME SELF-CARE
[2023-12-26] MEDS ORDERED: ATORVASTATIN 40 MG TAB PO SCH (21:00)
== END 2023-12-26 13:30 | disposition home or self-care (01) ==
LOC: EC 23:28 → 5NMEDONC 12-25 03:18
PROVIDERS: ADMIT Internal Medicine; ATTEND Internal Medicine
DX: G93.40 Encephalopathy, unspecified (principal); N17.9 Acute kidney failure, unspecified; E87.20 Acidosis, unspecified; N40.1 Benign prostatic hyperplasia with lower urinary tract symptoms; R30.0 Dysuria; I12.9 Hypertensive chronic kidney disease with stage 1 through stage 4 chronic kidney disease, or unspecified chronic kidney disease; N18.32 Chronic kidney disease, stage 3b; I48.92 Unspecified atrial flutter; K59.00 Constipation, unspecified; E78.5 Hyperlipidemia, unspecified; Z85.46 Personal history of malignant neoplasm of prostate; Z92.3 Personal history of irradiation; Z79.899 Other long term (current) drug therapy; Z87.442 Personal history of urinary calculi; Z11.52 Encounter for screening for COVID-19
CPT/HCPCS: 96361; 96365; 96372; 96375; 99285; 36415; 93005; 80053; 80048; 83605; 85025 ×2; 81001; 87040; 87636; 71046; G0378 ×2; J2405; J1650; J0696

== ENCOUNTER → 2024-01-06 | Outpatient (CLI) | payer MEDICARE ==
--- NOTE | 2024-01-11 19:22 | CT ---
EXAMINATION TYPE: CT abdomen pelvis wo con CT DLP: 857.9 mGycm, Automated exposure control for dose reduction was used. DATE OF EXAM: 01/06/2024 9:02 AM COMPARISON: CT abdomen pelvis most recent from 04/03/2019 CLINICAL INDICATION:Male, 83 years old with history of C61 PROSTATE CA R10.9 AB PAIN; left flank pain TECHNIQUE: Axial CT abdomen pelvis wo con;Sagittal and coronal reformats were created on a separate workstation. Contrast used: mL of , (none if empty) Oral contrast used: without Oral Contrast (none if empty) FINDINGS: LOWER CHEST: Unremarkable ABDOMEN LIVER: Unremarkable GALLBLADDER AND BILE DUCTS: Unremarkable. PANCREAS: Unremarkable. SPLEEN: Unremarkable. ADRENAL GLANDS: Unremarkable. KIDNEYS AND URETERS: No evidence of hydronephrosis . Multiple cysts in the left kidney are reidentifi ed. Nonobstructing 3 mm calculus is seen in the upper pole of the right kidney. A few Tiny nephrolit hs are seen in the upper pole of the left kidney. No obstructing calculus. The ureters are unremarkab le. PELVIS BLADDER: Unremarkable REPRODUCTIVE: Enlarged prostate. ABDOMEN & PELVIS STOMACH AND BOWEL: Stomach and duodenum are unremarkable. No evidence of bowel obstruction. PERITONEUM/RETROPERITONEUM: No evidence of pneumoperitoneum or free fluid. VASCULATURE: No evidence of aortic aneurysm. MUSCULOSKELETAL: No acute osseous abnormalities LYMPH NODES: No gross evidence for lymphadenopathy. SOFT TISSUE/ABDOMINAL WALL: Unremarkable IMPRESSION: 1. Several large left renal cysts are identified and a few small right renal cysts. Ultrasound follo w-up could be performed to confirm whether simple cysts or not.
== END | disposition home or self-care (01) ==
LOC: RADCTMAIN 08:26
PROVIDERS: ATTEND Urology
DX: C61 Malignant neoplasm of prostate (principal); N28.1 Cyst of kidney, acquired
CPT/HCPCS: 74176

== ENCOUNTER → 2024-01-24 | Outpatient (CLI) | payer MEDICARE ==
--- NOTE | 2024-01-24 09:04 | US ---
EXAMINATION TYPE: US renals and bladder DATE OF EXAM: 01/24/2024 COMPARISON: US, CT, MRI CLINICAL INDICATION: Male, 83 years old with history of N28.1 CYST OF KIDNEY, ACQUIRED; EXAM MEASUREMENTS: Right Kidney: 11.7 x 5.4 x 4.8 cm Left Kidney: 12.3 x 6.3 x 5.5 cm Right Kidney: Multicystic, largest cyst upper pole= 4.1 x 4.1 x 3.6 cm Left Kidney: Multicystic with largest cyst lower pole with septations= 7.9 x 4.5 x 6.6 cm Bladder: Pt not given prep, bladder not distended Incidental finding enlarged prostate= 7.5 x 6.1 x 6.3 cm - pt states history of prostate issues There is no evidence for hydronephrosis at this point in time. No nephrolithiasis is seen. No leslie s are identified. The urinary bladder is anechoic. Bilateral ureteral jets are seen. IMPRESSION: Bilateral cysts within the kidneys, some with thin septations. Findings not significantly changed fro m 01/06/2024
== END | disposition home or self-care (01) ==
LOC: RADUSWWP 08:13
PROVIDERS: ATTEND Urology
DX: N28.1 Cyst of kidney, acquired (principal)
CPT/HCPCS: 76770

== ENCOUNTER 2024-01-29 21:18 | Emergency (ER) | payer MEDICARE ==
[2024-01-29 22:40] LABS: Basophils % (A) 0 %; Eosinophils # (A) 0.1 k/uL (0-0.7); Eosinophils % (A) 2 %; HCT 32.5 % (39.0-53.0); HGB 10.5 gm/dL (13.0-17.5); Lymphocytes # (A) 0.3 k/uL (1.0-4.8); Lymphocytes % (A) 5 %; MCH 31.4 pg (25.0-35.0); MCHC 32.3 g/dL (31.0-37.0); MCV 97.3 fL (80.0-100.0); Mean Platelet Volume 7.4; Monocytes # (A) 0.3 k/uL (0-1.0); Monocytes % (A) 4 %; Neutrophils # (A) 6.4 k/uL (1.3-7.7); Neutrophils % (A) 89 %; Platelet Count 269 k/uL (150-450); RBC 3.34 m/uL (4.30-5.90); RDW 13.5 % (11.5-15.5); WBC 7.2 k/uL (3.8-10.6)
[2024-01-29 22:43] LABS: Appearance,Urine Clear (Clear); Bilirubin,Urine Negative (Negative); Blood,Urine Negative (Negative); Color,Urine Colorless; Glucose,Urine (UA) Negative (Negative); Ketones,Urine Negative (Negative); Leukocyte Esterase,Urine Negative (Negative); Nitrite,Urine Negative (Negative); Protein,Urine Negative (Negative); Urobilinogen,Urine <2.0 mg/dL (<2.0)
[2024-01-29] MEDS: MORPHINE SULFATE 4 MG/ML SYRINGE IVP STA (22:48)
[2024-01-29 23:04] LABS: ALT 17 U/L (4-49); AST 19 U/L (17-59); African American GFR (CKD) 64 (>60 ml/min/1.73 sqM); Albumin 3.1 g/dL (3.5-5.0); Alkaline Phosphatase 67 U/L (38-126); Anion Gap 8 mmol/L; Blood Urea Nitrogen 22 mg/dL (9-20); Calcium 8.3 mg/dL (8.4-10.2); Carbon Dioxide 22 mmol/L (22-30); Chloride 106 mmol/L (98-107); Glucose 126 mg/dL (74-99); Non-African American GFR(CKD) 55 (>60 ml/min/1.73 sqM); Potassium 4.1 mmol/L (3.5-5.1); Sodium 136 mmol/L (137-145); Total Bilirubin 0.8 mg/dL (0.2-1.3)
--- NOTE | 2024-01-29 23:23 | CT ---
EXAM: CT Abdomen and Pelvis Without Intravenous Contrast CLINICAL HISTORY: ITS.REASON CT Reason: difficulty urinating r/o stone TECHNIQUE: Axial computed tomography images of the abdomen and pelvis without intravenous contrast. CTDI is 11.4 mGy and DLP is 758.4 mGy-cm. This CT exam was performed using one or more of the following dose reduction techniques: automated exposure control, adjustment of the mA and/or kV according to patient size, and/or use of iterative reconstruction technique. COMPARISON: No relevant prior studies available. FINDINGS: Lung bases: Unremarkable. No mass. No consolidation. ABDOMEN: Liver: Unremarkable. Gallbladder and bile ducts: Unremarkable. No calcified stones. No ductal dilation. Pancreas: Unremarkable. No ductal dilation. Spleen: Unremarkable. No splenomegaly. Adrenals: Unremarkable. No mass. Kidneys and ureters: Nonobstructing 3 mm RIGHT upper pole renal stone. Bilateral renal cysts. No hydronephrosis. Stomach and bowel: Diverticulosis, without acute diverticulitis. No small bowel obstruction. No free intraperitoneal air. PELVIS: Appendix: No findings to suggest acute appendicitis. Bladder: Unremarkable. No stones. Reproductive: Severely enlarged prostate gland, measures 7.7 cm. ABDOMEN and PELVIS: Intraperitoneal space: Unremarkable. No free air. No significant fluid collection. Bones/joints: Degenerative changes of the spine. No acute fracture. No dislocation. Soft tissues: Unremarkable. Vasculature: Atherosclerotic changes of the aorta. No abdominal aortic aneurysm. Lymph nodes: Unremarkable. No enlarged lymph nodes. IMPRESSION: 1. Severely enlarged prostate gland, measures 7.7 cm. 2. Nonobstructing 3 mm RIGHT upper pole renal stone. 3. Diverticulosis, without acute diverticulitis. No small bowel obstruction. No free intraperitoneal air.
--- NOTE | 2024-01-29 23:46 | ED ---
General Adult HPI - General Chief complaint: Urogenital Stated complaint: Groin pain Time Seen by Provider: 01/29/24 21:31 Source: patient Mode of arrival: ambulatory Limitations: no limitations - History of Present Illness Initial comments: 83-year-old male presenting to the ED with complaints of difficulty urinating. Patient reports has had some ongoing issues with pain with urination and some left lower abdominal pain which she has been following with urology and nephrology. However today reports he has been unable to urinate and when he does so only is able to dribble out some urine. No fever or chills. No blood in the urine. No chest pain shortness of breath. No other complaints at this time. - Related Data Home Medications Medication Instructions Recorded Confirmed Metoprolol Tartrate [Lopressor] 100 mg PO BID 12/30/14 04/04/19 Atorvastatin [Lipitor] 40 mg PO HS 04/04/19 04/04/19 Brimonidine Tartrate [Alphagan P 1 drops BOTH EYES BID 04/04/19 04/04/19 0.2% Ophth Soln] Latanoprost [Xalatan 0.005%] 1 drop BOTH EYES HS 04/04/19 04/04/19 Previous Rx's Medication Instructions Recorded Tamsulosin HCl [Flomax] 0.4 mg PO DAILY #7 cap 04/03/19 Acetaminophen Tab [Tylenol] 650 mg PO Q6HR PRN tab 04/06/19 Sodium Bicarbonate Tab 650 mg PO BID #60 tab 04/06/19 amLODIPine [Norvasc] 5 mg PO BID #60 tab 04/06/19 polyethylene glycoL 3350 [Miralax] 17 gm PO DAILY #30 packet 12/26/23 Allergies Allergy/AdvReac Type Severity Reaction Status Date / Time No Known Allergies Allergy Verified 01/29/24 21:23 Review of Systems ROS Statement: Those systems with pertinent positive or pertinent negative responses have been documented in the HPI. ROS Other: All systems not noted in ROS Statement are negative. Past Medical History Past Medical History: Cancer, Hyperlipidemia, Hypertension Additional Past Medical History / Comment(s): KIDNEY STONES, GLAUCOMA, PROSTATE CA History of Any Multi-Drug Resistant Organisms: None Reported Past Surgical History: Orthopedic Surgery Additional Past Surgical History / Comment(s): HEEL SPURS REMOVED Past Psychological History: No Psychological Hx Reported Smoking Status: Never smoker Past Alcohol Use History: None Reported Past Drug Use History: None Reported - Past Family History Father Family Medical History: Cancer Mother Family Medical History: Cancer General Exam Limitations: no limitations General appearance: alert, in no apparent distress Eye exam: Present: normal appearance Neck exam: Present: normal inspection Respiratory exam: Present: normal lung sounds bilaterally Cardiovascular Exam: Present: regular rate GI/Abdominal exam: Present: soft (No significant tenderness to palpation. No rebound guarding or rigidity. No CVA tenderness to percussion bilaterally.), distended (Suprapubic) Neurological exam: Present: alert, oriented X3 Skin exam: Present: warm, dry Course Vital Signs 01/29/24 01/29/24 01/29/24 21:21 22:41 23:16 Temperature 97.9 F Pulse Rate 71 66 69 Respiratory 18 18 16 Rate Blood Pressure 124/72 124/83 O2 Sat by Pulse 98 95 98 Oximetry Medical Decision Making - Medical Decision Making Was pt. sent in by a medical professional or institution (, PA, RED HAT LINUX ADMINISTRATOR, urgent care, hospital, or care home...) When possible be specific @ -No Did you speak to anyone other than the patient for history (EMS, parent, family, police, friend...)? What history was obtained from this source @ -No Did you review nursing and triage notes (agree or disagree)? Why? @ -I reviewed and agree with nursing and triage notes Were old charts reviewed (outside hosp., previous admission, EMS record, old EKG, old radiological studies, urgent care reports/EKG's, care home records)? Report findings @ -No old charts were reviewed Differential Diagnosis (chest pain, altered mental status, abdominal pain women, abdominal pain men, vaginal bleeding, weakness, fever, dyspnea, syncope, headac he, dizziness, GI bleed, back pain, seizure, CVA, palpatations, mental health, musculoskeletal)? @ -Differential Abdominal Pain Men: Appendicitis, cholecystitis, diverticulosis, ischemic bowel, pancreatitis, hepatitis, UTI, gastroenteritis, AAA, incarcerated hernia, bowel obstruction, constipation, inflammatory bowel, hepatitis, peptic ulcer disease, splenic infarction, perforated viscus, testicular torsion, this is not meant to be an all-inclusive list EKG interpreted by me (3pts min.). @ -None X-rays interpreted by me (1pt min.). @ -None done CT interpreted by me (1pt min.). @ -None done U/S interpreted by me (1pt. min.). @ -None done What testing was considered but not performed or refused? (CT, X-rays, U/S, labs)? Why? @ -None What meds were considered but not given or refused? Why? @ -None Did you discuss the management of the patient with other professionals (professionals i.e. , PA, RED HAT LINUX ADMINISTRATOR, lab, RT, psych nurse, social sciences chair, specialist physicians, teacher, [place] police officer, watch case polisher)? Give summary @ -No Was smoking cessation discussed for >3mins.? @ -No Was critical care preformed (if so, how long)? @ -No Were there social determinants of health that impacted care today? How? (Homelessness, low income, unemployed, alcoholism, drug addiction, transpo rtation, low edu. Level, literacy, decrease access to med. care, [facility], rehab)? @ -No Was there de-escalation of care discussed even if they declined (Discuss DNR or withdrawal of care, Hospice)? DNR status @ -No What co-morbidities impacted this encounter? (DM, HTN, Smoking, COPD, CAD, Cancer, CVA, ARF, Chemo, Hep., AIDS, mental health diagnosis, sleep apnea, morbid obesity)? @ -Enlarged prostate Was patient admitted / discharged? Hospital course, mention meds given and route, prescriptions, significant lab abnormalities, going to OR and other pertinent info. @ -Discharge 83-year-old male with known history of kidney cysts currently following with u rology and nephrology presenting to the ED with complaints of left lower abdominal pain and dysuria which she reports has been ongoing and currently follows with urology for it however today reports that he has been unable to urinate. Initial postvoid residual showed 430 cc. Repeat showed 480 cc. Brooks catheter was placed. Laboratory studies reviewed. Labs including CBC, CMP, UA largely unremarkable. CT abdomen pelvis revealed no acute obstructive stones. Some diverticulosis without diverticulitis. Is significant for severely enlarged prostate measuring 7.7 cm. No other acute findings on CT. Brooks catheter was placed. Symptoms likely secondary to enlarged prostate. Discharged home in stable condition with referral to see urology. Discussed return precautions with patient and family verbalized agreement. Undiagnosed new problem with uncertain prognosis? @ -No Drug Therapy requiring intensive monitoring for toxicity (Heparin, Nitro, Insulin, Cardizem)? @ -No Were any procedures done? @ -No Diagnosis/symptom? @ -Urinary retention, enlarged prostate Acute, or Chronic, or Acute on Chronic? @ -Acute Uncomplicated (without systemic symptoms) or Complicated (systemic symptoms)? @ -Uncomplicated Side effects of treatment? @ -No Exacerbation, Progression, or Severe Exacerbation? @ -No Poses a threat to life or bodily function? How? (Chest pain, [place], [place], pneumonia, PE, COPD, DKA, ARF, appy, cholecystitis, CVA, Diverticulitis, Homicidal, Suicidal, threat to staff... and all critical care pts) @ -No - Lab Data Result diagrams: 01/29/24 22:27 01/29/24 22:27 Lab Results 01/29/24 01/29/24 01/29/24 Range/Units 22:27 22:27 22:27 WBC 7.2 (3.8-10.6) k/uL RBC 3.34 L (4.30-5.90) m/uL Hgb 10.5 L (13.0-17.5) gm/dL Hct 32.5 L (39.0-53.0) % MCV 97.3 (80.0-100.0) fL MCH 31.4 (25.0-35.0) pg MCHC 32.3 (31.0-37.0) g/dL RDW 13.5 (11.5-15.5) % Plt Count 269 (150-450) k/uL MPV 7.4 Neutrophils % 89 % Lymphocytes % 5 % Monocytes % 4 % Eosinophils % 2 % Basophils % 0 % Neutrophils # 6.4 (1.3-7.7) k/uL Lymphocytes # 0.3 L (1.0-4.8) k/uL Monocytes # 0.3 (0-1.0) k/uL Eosinophils # 0.1 (0-0.7) k/uL Basophils # 0.0 (0-0.2) k/uL Sodium 136 L (137-145) mmol/L Potassium 4.1 (3.5-5.1) mmol/L Chloride 106 (98-107) mmol/L Carbon Dioxide 22 (22-30) mmol/L Anion Gap 8 mmol/L BUN 22 H (9-20) mg/dL Creatinine 1.23 (0.66-1.25) mg/dL Est GFR (CKD-EPI)AfAm 64 (>60 ml/min/1.73 sqM) Est GFR (CKD-EPI)NonAf 55 (>60 ml/min/1.73 sqM) Glucose 126 H (74-99) mg/dL Calcium 8.3 L (8.4-10.2) mg/dL Total Bilirubin 0.8 (0.2-1.3) mg/dL AST 19 (17-59) U/L ALT 17 (4-49) U/L Alkaline Phosphatase 67 (38-126) U/L Total Protein 6.0 L (6.3-8.2) g/dL Albumin 3.1 L (3.5-5.0) g/dL Urine Color Colorless Urine Appearance Clear (Clear) Urine pH 6.0 (5.0-8.0) Ur Specific [place] 1.010 (1.001-1.035) Urine Protein Negative (Negative) Urine Glucose (UA) Negative (Negative) Urine Ketones Negative (Negative) Urine Blood Negative (Negative) Urine Nitrite Negative (Negative) Urine Bilirubin Negative (Negative) Urine Urobilinogen <2.0 (<2.0) mg/dL Ur Leukocyte Esterase Negative (Negative) Disposition Clinical Impression: Urinary retention, Enlarged prostate Disposition: HOME SELF-CARE Condition: Good Additional Instructions: Please return to the Emergency Department if symptoms worsen or any other concerns. Please follow-up with urology. Is patient prescribed a controlled substance at d/c from ED?: No Referrals: Chava Killian DO [Primary Care Provider] - 1-2 days Feliberto Santos MD [STAFF PHYSICIAN] - 1-2 days Time of Disposition: 23:51
[2024-01-29] MEDS: HYDROmorphone 1 MG/ML 1 ML SYRINGE IVP STA (23:57)
[2024-01-30 01:29] VITALS: BP 141/80; PULSE 70; RESP 20; TEMP 98.6
== END 2024-01-30 00:57 | disposition home or self-care (01) ==
LOC: EC 21:18
DX: N40.1 Benign prostatic hyperplasia with lower urinary tract symptoms (principal); R33.9 Retention of urine, unspecified; N20.0 Calculus of kidney
CPT/HCPCS: 36415; 51702; 51798; 74176; 80053; 81003; 85025; 96374; 96375; 99284

== ENCOUNTER 2024-02-01 14:06 | Emergency (ER) | payer MEDICARE ==
--- NOTE | 2024-02-01 14:26 | ED ---
General Adult HPI - General Source: patient, RN notes reviewed, old records reviewed Mode of arrival: ambulatory Limitations: no limitations <Chava Carlton - Last Filed: 02/01/24 14:25> - General Source: RN notes reviewed, old records reviewed Mode of arrival: ambulatory Limitations: no limitations - History of Present Illness -: days(s) Location: abdomen Radiation: abdomen Severity scale (1-10): 7 Quality: sharp Consistency: constant Improves with: none Associated Symptoms: denies other symptoms Treatments Prior to Arrival: none <Darrell Miller - Last Filed: 02/09/24 22:12> - General Stated complaint: Cath issue/leaking Time Seen by Provider: 02/01/24 14:20 - History of Present Illness Initial comments: Quick [id number] male presents emergency department chief complaint of Brooks catheter not draining. He states he had a placed other day states that he has pressure, discomfort he states it is leaking around the catheter. (Chava Carlton) This is an 83-year-old male to ER for evaluation of nonfunctioning Brooks catheter. Patient's Brooks catheter was placed here in the ER feels improved and patient has no other complaints (Darrell Miller) - Related Data Home Medications Medication Instructions Recorded Confirmed Metoprolol Tartrate [Lopressor] 100 mg PO BID 12/30/14 04/04/19 Atorvastatin [Lipitor] 40 mg PO HS 04/04/19 04/04/19 Brimonidine Tartrate [Alphagan P 1 drops BOTH EYES BID 04/04/19 04/04/19 0.2% Ophth Soln] Latanoprost [Xalatan 0.005%] 1 drop BOTH EYES HS 04/04/19 04/04/19 Previous Rx's Medication Instructions Recorded Tamsulosin HCl [Flomax] 0.4 mg PO DAILY #7 cap 04/03/19 Acetaminophen Tab [Tylenol] 650 mg PO Q6HR PRN tab 04/06/19 Sodium Bicarbonate Tab 650 mg PO BID #60 tab 04/06/19 amLODIPine [Norvasc] 5 mg PO BID #60 tab 04/06/19 polyethylene glycoL 3350 [Miralax] 17 gm PO DAILY #30 packet 12/26/23 HYDROcodone/APAP 5-325MG [[place] 5] 1 each PO Q6HR PRN #12 tab 01/30/24 Allergies Allergy/AdvReac Type Severity Reaction Status Date / Time No Known Allergies Allergy Verified 02/02/24 13:48 Review of Systems ROS Other: All systems not noted in ROS Statement are negative. <Chava Carlton - Last Filed: 02/01/24 14:25> ROS Other: All systems not noted in ROS Statement are negative. <Darrell Miller - Last Filed: 02/09/24 22:12> ROS Statement: Those systems with pertinent positive or pertinent negative responses have been documented in the HPI. Past Medical History Past Medical History: Cancer, Hyperlipidemia, Hypertension Additional Past Medical History / Comment(s): KIDNEY STONES, GLAUCOMA, PROSTATE CA History of Any Multi-Drug Resistant Organisms: None Reported Past Surgical History: Orthopedic Surgery Additional Past Surgical History / Comment(s): HEEL SPURS REMOVED Past Psychological History: No Psychological Hx Reported Smoking Status: Never smoker Past Alcohol Use History: None Reported Past Drug Use History: None Reported - Past Family History Father Family Medical History: Cancer Mother Family Medical History: Cancer <Chava Carlton - Last Filed: 02/01/24 14:25> General Exam <Chava Carlton - Last Filed: 02/01/24 14:25> General appearance: alert, in no apparent distress, anxious Head exam: Present: atraumatic, normocephalic, normal inspection Eye exam: Present: normal appearance, PERRL, EOMI. Absent: scleral icterus, conjunctival injection, periorbital swelling ENT exam: Present: normal exam, mucous membranes moist Neck exam: Present: normal inspection. Absent: tenderness, meningismus, lymphadenopathy Respiratory exam: Present: normal lung sounds bilaterally. Absent: respiratory distress, wheezes, rales, rhonchi, stridor Cardiovascular Exam: Present: regular rate, normal rhythm, normal heart sounds. Absent: systolic murmur, diastolic murmur, rubs, gallop, clicks GI/Abdominal exam: Present: soft, normal bowel sounds. Absent: distended, tenderness, guarding, rebound, rigid Extremities exam: Present: normal inspection, full ROM, normal capillary refill. Absent: tenderness, pedal edema, joint swelling, calf tenderness Back exam: Present: normal inspection Neurological exam: Present: alert, oriented X3, CN II-XII intact Psychiatric exam: Present: normal affect, normal mood Skin exam: Present: warm, dry, intact, normal color. Absent: rash <Darrell Miller - Last Filed: 02/09/24 22:12> - General Exam Comments Initial Comments: Visual Physical Exam Vital signs reviewed General: Well-appearing, nontoxic, no acute distress. Head: Normocephalic, atraumatic Eyes: PERRLA, EOMI ENT: Airway patent Chest: Nonlabored breathing Skin: No visual rash, normal skin tone Neuro: Alert and oriented 3 Musculoskeletal: No gross abnormalities (Chava Carlton) Course <Darrell Miller - Last Filed: 02/09/24 22:12> Vital Signs 02/01/24 02/01/24 14:25 16:27 Temperature 98.3 F 98.2 F Pulse Rate 73 61 Respiratory 16 18 Rate Blood Pressure 120/72 116/76 O2 Sat by Pulse 97 98 Oximetry - Reevaluation(s) Reevaluation #1: Medical record is reviewed (Darrell Miller) Reevaluation #2: Patient symptoms are unchanged (Darrell Miller) Reevaluation #3: Patient informed of results and questions answered (Darrell Miller) Reevaluation #4: Was pt. sent in by a medical professional or institution (, PA, YOGA TEACHER, urgent care, hospital, or retirement...) When possible be specific @ -no Did you speak to anyone other than the patient for history (EMS, parent, family, police, friend...)? What history was obtained from this source @ -no Did you review nursing and triage notes (agree or disagree)? Why? @ -agree Are old charts reviewed (outside hosp., previous admission, EMS record, old EKG, old radiological studies, urgent care reports/EKG's, retirement records)? Report findings @ -yes Differential Diagnosis (chest pain, altered mental status, abdominal pain women, abdominal pain men, vaginal bleeding, weakness, fever, dyspnea, syncope, headache, dizziness, GI bleed, back pain, seizure, CVA, palpatations, mental health, musculoskeletal)? @ -prior EKG interpreted by me (3pts min.). @ -no X-rays interpreted by me (1pt min.). @ -no CT interpreted by me (1pt min.). @ -no U/S interpreted by me (1pt. min.). @ -no What testing was considered but not performed or refused? (CT, X-rays, U/S, labs)? Why? @ -none What meds were considered but not given or refused? Why? @ -none Did you discuss the management of the patient with other professionals (professionals i.e. DrKrystal, PA, YOGA TEACHER, lab, RT, psych nurse, social media executive, vein pumper, teacher, transit authority police officer, social work case manager)? Give summary @ -no Was smoking cessation discussed for >3mins.? @ -no Was critical care preformed (if so, how long)? @ -no Were there social determinants of health that impacted care today? How? (Homelessness, low income, unemployed, alcoholism, drug addiction, transportation, low edu. Level, literacy, decrease access to med. care, [facility], rehab)? @ -none Was there de-escalation of care discussed even if they declined (Discuss DNR or withdrawal of care, Hospice)? DNR status @ -no What co-morbidities impacted this encounter? (DM, HTN, Smoking, COPD, CAD, Cancer, CVA, ARF, Chemo, Hep., AIDS, mental health diagnosis, sleep apnea, morbid obesity)? @ -none Was patient admitted / discharged? Hospital course, mention meds given and route, prescriptions, significant lab abnormalities, going to OR and other pertinent info. @ -83 male to ER for evaluation of significant urinary retention, found in the ER today for evaluation of urinary retention symptoms resolved and patient can be discharged home Undiagnosed new problem with uncertain prognosis? @ -no Drug Therapy requiring intensive monitoring for toxicity (Heparin, Nitro, Insulin, Cardizem)? @ -no Were any procedures done? @ -no Diagnosis/symptom? @ -Urinary retention abdominal pain Acute, or Chronic, or Acute on Chronic? @ -Acute Uncomplicated (without systemic symptoms) or Complicated (systemic symptoms)? @ -Complicated Side effects of treatment? @ -no Exacerbation, Progression, or Severe Exacerbation? @ -exacerbation Poses a threat to life or bodily function? How? (Chest pain, [place], [place], pneumonia, PE, COPD, DKA, ARF, appy, cholecystitis, CVA, Diverticulitis, Homicidal, Suicidal, threat to staff... and all critical care pts) @ -yes extremes of age (Darrell Miller) Medical Decision Making <Chava Carlton - Last Filed: 02/01/24 14:25> <Darrell Miller - Last Filed: 02/09/24 22:12> - Medical Decision Making I completed the quick note portion of this chart signed Chava Carlton PA-C (Chava Carlton) 83 male to the ER for evaluation patient [facility] for evaluation in regards to presents to the emergency department difficulty with urination and urinary retention, Brooks catheter placed feels well can be discharged home (Darrell Carl) - Lab Data Lab Results 02/01/24 Range/Units 16:35 Urine Color Yellow Urine Appearance Cloudy (Clear) Urine pH 6.0 (5.0-8.0) Ur Specific [place] 1.021 (1.001-1.035) Urine Protein 2+ H (Negative) Urine Glucose (UA) Negative (Negative) Urine Ketones Negative (Negative) Urine Blood Moderate H (Negative) Urine Nitrite Negative (Negative) Urine Bilirubin Negative (Negative) Urine Urobilinogen 3.0 (<2.0) mg/dL Ur Leukocyte Esterase Moderate H (Negative) Urine RBC 29 H (0-5) /hpf Urine WBC 7 H (0-5) /hpf Ur Squamous Epith Cells <1 (0-4) /hpf Urine Mucus Occasional H (None) /hpf Disposition <Chava Carlton - Last Filed: 02/01/24 14:25> Is patient prescribed a controlled substance at d/c from ED?: No Time of Disposition: 16:00 <Darrell Miller - Last Filed: 02/09/24 22:12> Clinical Impression: Malfunction of Brooks catheter, Pelvic pain Disposition: HOME SELF-CARE Condition: Good Instructions (If sedation given, give patient instructions): Brooks Catheter Placement and Care (ED), Pelvic Pain (ED) Referrals: Chava Killian DO [Primary Care Provider] - 1-2 days
[2024-02-01] MEDS: HYDROmorphone 1 MG/ML 1 ML SYRINGE IM STA (16:27)
[2024-02-01 16:57] LABS: Appearance,Urine Cloudy (Clear); Bilirubin,Urine Negative (Negative); Blood,Urine Moderate (Negative); Color,Urine Yellow; Glucose,Urine (UA) Negative (Negative); Ketones,Urine Negative (Negative); Leukocyte Esterase,Urine Moderate (Negative); Mucus,Urine Occasional /hpf; Nitrite,Urine Negative (Negative); Protein,Urine 2+ (Negative); RBC,Urine 29 /hpf (0-5); Specific Gravity,Urine 1.021 (1.001-1.035); Squamous Epithelial Cell,Urine <1 /hpf (0-4); WBC,Urine 7 /hpf (0-5)
[2024-02-01 17:08] VITALS: BP 116/76; PULSE 61; RESP 18; TEMP 98.2
== END 2024-02-01 16:45 | disposition home or self-care (01) ==
LOC: EC 14:06
DX: T83.098A Other mechanical complication of other urinary catheter, initial encounter (principal)
CPT/HCPCS: 81001; 99284; 96372; 51702; J1170

== ENCOUNTER 2024-02-02 13:44 | Emergency (ER) | payer MEDICARE ==
--- NOTE | 2024-02-02 14:08 | ED ---
Recheck HPI - General Chief Complaint: Recheck/Abnormal Lab/Rx Stated Complaint: Catheter issues Time Seen by Provider: 02/02/24 14:06 Source: patient, family, RN notes reviewed, old records reviewed Mode of arrival: ambulatory Limitations: no limitations - History of Present Illness Initial Comments: 83-year-old male presenting to the ER with a chief complaint of urinary catheter issue. Patient states he had it placed on Wednesday01/29/2024 for urinary retention. Patient has a past medical history significant of enlarged prostate and prostate cancer. He follows up with Dr. Dugan. Family report he was having leaking around the insertion site yesterday and presented to the ER where catheter was replaced. states he also has not been producing much urine. He states he has not been drinking much as well. Patient arrives today for similar complaint of leaking from insertion site which soaks his underwear. This morning patient states his underwear were not wet family reports they drained around 500 to 600 mL from catheter. Patient reports he had 3 bowel movements today for which he strained. He also states he has been straining as he feels a pressure sensation with urination. He endorses mild abdominal discomfort/pressure. reports she drained the catheter around 12:30 PM and only drained about 50 mL. Denies any fevers, chills, nausea, chest pain, shortness of breath or peripheral edema. - Related Data Home Medications Medication Instructions Recorded Confirmed Metoprolol Tartrate [Lopressor] 100 mg PO BID 12/30/14 04/04/19 Atorvastatin [Lipitor] 40 mg PO HS 04/04/19 04/04/19 Brimonidine Tartrate [Alphagan P 1 drops BOTH EYES BID 04/04/19 04/04/19 0.2% Ophth Soln] Latanoprost [Xalatan 0.005%] 1 drop BOTH EYES HS 04/04/19 04/04/19 Previous Rx's Medication Instructions Recorded Tamsulosin HCl [Flomax] 0.4 mg PO DAILY #7 cap 04/03/19 Acetaminophen Tab [Tylenol] 650 mg PO Q6HR PRN tab 04/06/19 Sodium Bicarbonate Tab 650 mg PO BID #60 tab 04/06/19 amLODIPine [Norvasc] 5 mg PO BID #60 tab 04/06/19 polyethylene glycoL 3350 [Miralax] 17 gm PO DAILY #30 packet 12/26/23 HYDROcodone/APAP 5-325MG [[place] 5] 1 each PO Q6HR PRN #12 tab 01/30/24 Allergies Allergy/AdvReac Type Severity Reaction Status Date / Time No Known Allergies Allergy Verified 02/02/24 13:48 Review of Systems ROS Statement: Those systems with pertinent positive or pertinent negative responses have been documented in the HPI. ROS Other: All systems not noted in ROS Statement are negative. Past Medical History Past Medical History: Cancer, Hyperlipidemia, Hypertension Additional Past Medical History / Comment(s): KIDNEY STONES, GLAUCOMA, PROSTATE CA History of Any Multi-Drug Resistant Organisms: None Reported Past Surgical History: Orthopedic Surgery Additional Past Surgical History / Comment(s): HEEL SPURS REMOVED Past Psychological History: No Psychological Hx Reported Smoking Status: Never smoker Past Alcohol Use History: None Reported Past Drug Use History: None Reported - Past Family History Father Family Medical History: Cancer Mother Family Medical History: Cancer General Exam Limitations: no limitations General appearance: alert, in no apparent distress Course Vital Signs 02/02/24 02/02/24 02/02/24 13:46 14:45 16:19 Temperature 97.6 F 97.7 F 97.9 F Pulse Rate 72 64 61 Respiratory 20 18 18 Rate Blood Pressure 100/71 135/79 132/72 O2 Sat by Pulse 96 99 99 Oximetry Medical Decision Making - Medical Decision Making Was pt. sent in by a medical professional or institution (KAIA Estrada, FRONT COUNTER CLERK, urgent care, hospital, or [place] health [facility] facility...) When possible be specific @ -No Did you speak to anyone other than the patient for history (EMS, parent, family, police, friend...)? What history was obtained from this source @ - aiding in HPI. Did you review nursing and triage notes (agree or disagree)? Why? @ -I reviewed and agree with nursing and triage notes Were old charts reviewed (outside hosp., previous admission, EMS record, old EKG, old radiological studies, urgent care reports/EKG's, [place] [facility] facility records)? Report findings @ -[Yes, ER visit from 02-01-2024 patient had Brooks catheter replaced and was discharged home with follow-up to urology. Differential Diagnosis (chest pain, altered mental status, abdominal pain women, abdominal pain men, vaginal bleeding, weakness, fever, dyspnea, syncope, headache, dizziness, GI bleed, back pain, seizure, CVA, palpatations, mental health, musculoskeletal)? @ -Urinary retention, Brooks catheter malfunction, UTI, this list is not meant to be all-inclusive EKG interpreted by me (3pts min.). @ -[None X-rays interpreted by me (1pt min.). @ -None done CT interpreted by me (1pt min.). @ -None done U/S interpreted by me (1pt. min.). @ -None done What testing was considered but not performed or refused? (CT, X-rays, U/S, labs)? Why? @ -None What meds were considered but not given or refused? Why? @ -None Did you discuss the management of the patient with other professionals (professionals i.e. , PA, FRONT COUNTER CLERK, lab, RT, psych nurse, social work instructor, stringer machine tender, teacher, veterinary medical officer, correctional casework specialist)? Give summary @ -Case management attempted to contact Dr. Dugan's office to earlier appointment was available. The earliest patient could be seen by urology was 02-07-2024. Was smoking cessation discussed for >3mins.? @ -No Was critical care preformed (if so, how long)? @ -No Were there social determinants of health that impacted care today? How? (Homelessness, low income, unemployed, alcoholism, drug addiction, transportation, low edu. Level, literacy, decrease access to med. care, half-way, rehab)? @ -No Was there de-escalation of care discussed even if they declined (Discuss DNR or withdrawal of care, Hospice)? DNR status @ -No What co-morbidities impacted this encounter? (DM, HTN, Smoking, COPD, CAD, Cancer, CVA, ARF, Chemo, Hep., AIDS, mental health diagnosis, sleep apnea, morbid obesity)? @ -Large prostate/prostate cancer/advanced age Was patient admitted / discharged? Hospital course, mention meds given and route, prescriptions, significant lab abnormalities, going to OR and other pertinent info. @ -Discharged. 83 year old male presenting to the ER with a cheif complaint fo urinary catheter leaking. History and physical exam completed. Vitals stable. Patient in no signs of acute distress and non-toxic appearing. No focal abdominal tenderness on exam. Normal bowel sounds. Upon initial examination no active leaking of urinary catheter with Pale urine draining into leg bag. Bladder scan completed and significant for 15ml. Case management attempted to contact Dr. Dugan's office to earlier appointment was available. The earliest patient could be seen by urology was 02-07-2024. UA reviewed from 02/01/24 significant for moderate blood with 29 RBCs. No evidence of infection. Upon reevaluation, patient had minimal amount of urine leaking from urethra. I discussed the option of inserting a larger catheter size to prevent this. Patient in agreement. Catheter changed to an 18 Greek. Upon reevaluation patient draining pale urine into Brooks bag. No active leaking. I had a lengthy discussion with patient about refraining from straining with defecation and urination. Suggest stool softners and laxative to aid with uncomplicated bowel movements. Strict return parameters discussed. Patient discharged stable condition with follow-up to urology. Patient and verbally expressed understanding and agreement with care plan. Case discussed with ED attending, Dr. Bernabe. Undiagnosed new problem with uncertain prognosis? @ -No Drug Therapy requiring intensive monitoring for toxicity (Heparin, Nitro, Insulin, Cardizem)? @ -No Were any procedures done? @ -No Diagnosis/symptom? @ -Brooks catheter malfunction Acute, or Chronic, or Acute on Chronic? @ -Acute Uncomplicated (without systemic symptoms) or Complicated (systemic symptoms)? @ -Uncomplicated Side effects of treatment? @ -No Exacerbation, Progression, or Severe Exacerbation? @ -No Poses a threat to life or bodily function? How? (Chest pain, [place], [place], pneumonia, PE, COPD, DKA, ARF, appy, cholecystitis, CVA, Diverticulitis, Homicidal, Suicidal, threat to staff... and all critical care pts) @ -No Disposition Clinical Impression: Malfunction of Brooks catheter Disposition: HOME SELF-CARE Condition: Stable Additional Instructions: Follow-up with Dr. Dugan as scheduled on 02/07/24. Increase hydration with water or gatorade. Try OTC Miralax and refrain from bearing down with bowel movements. Return to the ER for any new or worsening concerns. Is patient prescribed a controlled substance at d/c from ED?: No Referrals: Chava Killian DO [Primary Care Provider] - 1-2 days Vikas Dugan MD [STAFF PHYSICIAN] - 02/07/24 10:40 am (Soonest available. ) Time of Disposition: 16:04
[2024-02-02 16:15] VITALS: RESP 18
[2024-02-02 16:56] VITALS: BP 132/72; PULSE 61; TEMP 97.9
== END 2024-02-02 16:21 | disposition home or self-care (01) ==
LOC: EC 13:44
DX: T83.091A Other mechanical complication of indwelling urethral catheter, initial encounter (principal)
CPT/HCPCS: 51702; 99284

== ENCOUNTER → 2024-02-15 | Outpatient (CLI) | payer MEDICARE ==
[2024-02-15 19:44] LABS: Prostate Specific Antigen 0.02 ng/mL (0.000-6.500)
== END | disposition home or self-care (01) ==
LOC: LABWHC1 13:00
PROVIDERS: ATTEND Radiology Radiation Oncology
DX: C61 Malignant neoplasm of prostate (principal); Z79.899 Other long term (current) drug therapy
CPT/HCPCS: 36415; 84153; 84403

== ENCOUNTER → 2024-08-03 | Outpatient (CLI) | payer MEDICARE | END | disposition home or self-care (01) | LOC: LABWHC1 11:40 | PROVIDERS: ATTEND Radiology Radiation Oncology | CPT/HCPCS: 36415; 84153 ==

== ENCOUNTER 2024-10-09 13:20 | Inpatient (IN) | payer MEDICARE ==
--- NOTE | 2024-10-09 14:19 | ED ---
Wound/Laceration HPI - General Chief Complaint: Wound/Laceration Stated Complaint: Infected fingers Time Seen by Provider: 10/09/24 14:18 Source: patient, RN notes reviewed Mode of arrival: wheelchair Limitations: no limitations - History of Present Illness Initial Comments: 84-year-old male sent from urgent care for bilateral finger infections. States he believes he may have had a sliver in his right index finger approximately 2 weeks ago. States the infection has been worsening since. He also reports a dog scratch to left third digit approximately 2 weeks ago as well. He is unsure of the source of the splinter. He has not been on antibiotics for these infections. Denies history of diabetes. Denies fever, body aches, vomiting, chills. - Related Data Home Medications Medication Instructions Recorded Confirmed Metoprolol Tartrate [Lopressor] 100 mg PO BID 12/30/14 04/04/19 Atorvastatin [Lipitor] 40 mg PO HS 04/04/19 04/04/19 Brimonidine Tartrate [Alphagan P 1 drops BOTH EYES BID 04/04/19 04/04/19 0.2% Ophth Soln] Latanoprost [Xalatan 0.005%] 1 drop BOTH EYES HS 04/04/19 04/04/19 Previous Rx's Medication Instructions Recorded Tamsulosin HCl [Flomax] 0.4 mg PO DAILY #7 cap 04/03/19 Acetaminophen Tab [Tylenol] 650 mg PO Q6HR PRN tab 04/06/19 Sodium Bicarbonate Tab 650 mg PO BID #60 tab 04/06/19 amLODIPine [Norvasc] 5 mg PO BID #60 tab 04/06/19 polyethylene glycoL 3350 [Miralax] 17 gm PO DAILY #30 packet 12/26/23 HYDROcodone/APAP 5-325MG [[place] 5] 1 each PO Q6HR PRN #12 tab 01/30/24 Allergies Allergy/AdvReac Type Severity Reaction Status Date / Time No Known Allergies Allergy Verified 10/09/24 13:39 Review of Systems ROS Statement: Those systems with pertinent positive or pertinent negative responses have been documented in the HPI. ROS Other: All systems not noted in ROS Statement are negative. Past Medical History Past Medical History: Cancer, Hyperlipidemia, Hypertension Additional Past Medical History / Comment(s): KIDNEY STONES, GLAUCOMA, PROSTATE CA History of Any Multi-Drug Resistant Organisms: None Reported Past Surgical History: Orthopedic Surgery Additional Past Surgical History / Comment(s): HEEL SPURS REMOVED Past Psychological History: No Psychological Hx Reported Smoking Status: Never smoker Past Alcohol Use History: None Reported Past Drug Use History: None Reported - Past Family History Father Family Medical History: Cancer Mother Family Medical History: Cancer General Exam - General Exam Comments Initial Comments: Visual Physical Exam Vital signs reviewed General: Well-appearing, nontoxic, no acute distress. Head: Normocephalic, atraumatic Eyes: PERRLA, EOMI ENT: Airway patent Chest: Nonlabored breathing Skin: No visual rash, normal skin tone Neuro: Alert and oriented 3 Musculoskeletal: No gross abnormalities Limitations: no limitations General appearance: alert, in no apparent distress Head exam: Present: atraumatic, normocephalic, normal inspection Right Forearm Wrist exam: Present: normal inspection, full ROM. Absent: tenderness, swelling Hand Wrist exam: Present: tenderness, swelling. Absent: normal inspection (Near circumferential erythema, edema, and tenderness right second digit involving PIP joint. Limited range of motion of PIP joint), full ROM, deformity Vascular: Present: normal capillary refill, radial pulse. Absent: vascular compromise Left Forearm Wrist exam: Present: normal inspection, full ROM. Absent: tenderness, swelling Hand Wrist exam: Present: full ROM, erythema. Absent: normal inspection (Left third digit 3 x 3 cm area of erythema and dried blood on dorsal aspect of digit. No edema. Full range of motion of PIP and DIP joint), tenderness, swelling Vascular: Present: normal capillary refill, radial pulse. Absent: vascular compromise Neurological exam: Present: alert, oriented X3 Psychiatric exam: Present: normal affect, normal mood Skin exam: Present: warm, dry, intact, normal color. Absent: rash Course Vital Signs 10/09/24 13:34 Temperature 98.6 F Pulse Rate 66 Respiratory 18 Rate Blood Pressure 97/64 O2 Sat by Pulse 98 Oximetry Medical Decision Making - Medical Decision Making I completed the quick note portion of this chart signed Domonique Bhatt PA-C Was pt. sent in by a medical professional or institution ([facility] Estrada, WINDING LATHE OPERATOR, urgent care, hospital, or senior living...) When possible be specific @ -No Did you speak to anyone other than the patient for history (EMS, parent, family, police, friend...)? What history was obtained from this source @ -No Did you review nursing and triage notes (agree or disagree)? Why? @ -I reviewed and agree with nursing and triage notes Were old charts reviewed (outside hosp., previous admission, EMS record, old EKG, old radiological studies, urgent care reports/EKG's, senior living records)? Report findings @ -No old charts were reviewed Differential Diagnosis (chest pain, altered mental status, abdominal pain women, abdominal pain men, vaginal bleeding, weakness, fever, dyspnea, syncope, headache, dizziness, GI bleed, back pain, seizure, CVA, palpatations, mental health, musculoskeletal)? @ -Differential Musculoskeletal Muscular strain, contusion, ligament sprain, fracture, arthritis, septic arthritis, bursitis, cellulitis, muscle spasm, nerve compression, DVT, arterial occlusion, herpes zoster, electrolyte abnormality, tumor.... This is not meant to be in all inclusive list EKG interpreted by me (3pts min.). @ -None X-rays interpreted by me (1pt min.). @ -Bilateral hand x-ray reveals soft tissue swelling right index finger, no underlying bony erosion, moderate to severe osteoarthritis, no acute fracture CT interpreted by me (1pt min.). @ -None done U/S interpreted by me (1pt. min.). @ -None done What testing was considered but not performed or refused? (CT, X-rays, U/S, labs)? Why? @ -None What meds were considered but not given or refused? Why? @ -None Did you discuss the management of the patient with other professionals (professionals i.e. , PA, WINDING LATHE OPERATOR, lab, RT, psych nurse, administrator social welfare, hotel operation manager, teacher, forest officer, case repairer)? Give summary @ -I spoke with Dr. Barth accepts admission for cellulitis of right second digit with request to consultation to hand surgery Was smoking cessation discussed for >3mins.? @ -No Was critical care preformed (if so, how long)? @ -No Were there social determinants of health that impacted care today? How? (Homelessness, low income, unemployed, alcoholism, drug addiction, transportat ion, low edu. Level, literacy, decrease access to med. care, care home, rehab)? @ -No Was there de-escalation of care discussed even if they declined (Discuss DNR or withdrawal of care, Hospice)? DNR status @ -No What co-morbidities impacted this encounter? (DM, HTN, Smoking, COPD, CAD, Cancer, CVA, ARF, Chemo, Hep., AIDS, mental health diagnosis, sleep apnea, morbid obesity)? @ -None Was patient admitted / discharged? Hospital course, mention meds given and route, prescriptions, significant lab abnormalities, going to OR and other pertinent info. @-Admitted. 84-year-old male with finger infection x 2 weeks. Neurovascularly intact. There is near circumferential erythema and edema of right second digit limiting range of motion of PIP joint. Lab work remarkable for elevated CRP at 5.5. White blood cell count stable at 6.5. X-ray reveals soft tissue swelling of right index finger, no underlying bony erosion. Results discussed with patient. Blood cultures were taken and patient was started on IV antibiotics. I spoke with Dr. Batrh who accepts admission for cellulitis with consultation to hand surgery. Case was discussed with my ED attending Dr. Phipps Undiagnosed new problem with uncertain prognosis? @ -No Drug Therapy requiring intensive monitoring for toxicity (Heparin, Nitro, Insulin, Cardizem)? @ -No Were any procedures done? @ -No Diagnosis/symptom? @ -Cellulitis of right second digit of hand Acute, or Chronic, or Acute on Chronic? @ -Acute Uncomplicated (without systemic symptoms) or Complicated (systemic symptoms)? @ -Uncomplicated Side effects of treatment? @ -No Exacerbation, Progression, or Severe Exacerbation? @ -No Poses a threat to life or bodily function? How? (Chest pain, [place], [place], pneumonia, PE, COPD, DKA, ARF, appy, cholecystitis, CVA, Diverticulitis, Homicidal, Suicidal, threat to staff... and all critical care pts) @ -Yes - Lab Data Result diagrams: 10/09/24 14:47 10/09/24 14:47 Lab Results 10/09/24 10/09/24 10/09/24 Range/Units 14:47 14:47 14:47 WBC 6.5 (3.8-10.6) k/uL RBC 3.79 L (4.30-5.90) m/uL Hgb 11.6 L (13.0-17.5) gm/dL Hct 36.0 L (39.0-53.0) % MCV 95.0 (80.0-100.0) fL MCH 30.6 (25.0-35.0) pg MCHC 32.2 (31.0-37.0) g/dL RDW 14.1 (11.5-15.5) % Plt Count 333 (150-450) k/uL MPV 7.0 Neutrophils % 80 % Lymphocytes % 11 % Monocytes % 4 % Eosinophils % 4 % Basophils % 0 % Neutrophils # 5.2 (1.3-7.7) k/uL Lymphocytes # 0.7 L (1.0-4.8) k/uL Monocytes # 0.3 (0-1.0) k/uL Eosinophils # 0.2 (0-0.7) k/uL Basophils # 0.0 (0-0.2) k/uL Hypochromasia Slight Sodium 139 (137-145) mmol/L Potassium 4.3 (3.5-5.1) mmol/L Chloride 105 (98-107) mmol/L Carbon Dioxide 23 (22-30) mmol/L Anion Gap 11 mmol/L BUN 20 (9-20) mg/dL Creatinine 1.53 H (0.66-1.25) mg/dL Est GFR (CKD-EPI)AfAm 48 (>60 ml/min/1.73 sqM) Est GFR (CKD-EPI)NonAf 42 (>60 ml/min/1.73 sqM) Glucose 103 H (74-99) mg/dL Plasma Lactic Acid Vishnu 1.2 (0.7-2.0) mmol/L Calcium 8.8 (8.4-10.2) mg/dL Total Bilirubin 0.6 (0.2-1.3) mg/dL AST 15 L (17-59) U/L ALT 11 (4-49) U/L Alkaline Phosphatase 65 (38-126) U/L C-Reactive Protein 5.5 H (<1.0) mg/dL Total Protein 6.8 (6.3-8.2) g/dL Albumin 3.6 (3.5-5.0) g/dL Disposition Clinical Impression: Cellulitis of right index finger Disposition: ADMITTED IP TO THIS HOSP Referrals: Chava Killian DO [Primary Care Provider] - 1-2 days Time of Disposition: 18:25
[2024-10-09 15:10] LABS: ALT 11 U/L (4-49); AST 15 U/L (17-59); African American GFR (CKD) 48 (>60 ml/min/1.73 sqM); Albumin 3.6 g/dL (3.5-5.0); Alkaline Phosphatase 65 U/L (38-126); Anion Gap 11 mmol/L; Blood Urea Nitrogen 20 mg/dL (9-20); C Reactive Protein 5.5 mg/dL (<1.0); Calcium 8.8 mg/dL (8.4-10.2); Carbon Dioxide 23 mmol/L (22-30); Chloride 105 mmol/L (98-107); Glucose 103 mg/dL (74-99); Non-African American GFR(CKD) 42 (>60 ml/min/1.73 sqM); Potassium 4.3 mmol/L (3.5-5.1); Sodium 139 mmol/L (137-145); Total Bilirubin 0.6 mg/dL (0.2-1.3); Total Protein 6.8 g/dL (6.3-8.2)
--- NOTE | 2024-10-09 15:42 | XR ---
EXAMINATION TYPE: XR hand complete bilateral DATE OF EXAM: 10/09/2024 COMPARISON: NONE CLINICAL INDICATION: Male, 84 years old with history of b/l hand infection; TECHNIQUE: 3 views each side FINDINGS: Moderate to severe degenerative change at the basal joint of the thumb on the left and mode rate on the right. Additional scattered mild osteoarthritic change throughout the PIP and DIP joints of the fingers. No marginal erosions. No periostitis or osteolysis. On the right, soft tissue swellin g of the index finger. IMPRESSION: 1. Soft tissue swelling of the right index finger. No underlying bony erosion to suggest a contiguous osteomyelitis. 2. 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 3. No acute fracture seen. [facility], , 10/09/2024 3:40 PM
[2024-10-09 16:12] LABS: Basophils % (A) 0 %; Eosinophils # (A) 0.2 k/uL (0-0.7); Eosinophils % (A) 4 %; HGB 11.6 gm/dL (13.0-17.5); Hypochromasia Slight; Lymphocytes # (A) 0.7 k/uL (1.0-4.8); Lymphocytes % (A) 11 %; MCH 30.6 pg (25.0-35.0); MCHC 32.2 g/dL (31.0-37.0); Monocytes # (A) 0.3 k/uL (0-1.0); Monocytes % (A) 4 %; Neutrophils # (A) 5.2 k/uL (1.3-7.7); Neutrophils % (A) 80 %; Platelet Count 333 k/uL (150-450); RBC 3.79 m/uL (4.30-5.90); RDW 14.1 % (11.5-15.5); WBC 6.5 k/uL (3.8-10.6)
[2024-10-09] MEDS ORDERED: VANCOMYCIN IV PER PHARMACY 1 EACH MISC MISCELLANE PRN (17:56)
[2024-10-09] MEDS: CEFEPIME 2 GM in SODIUM CHLORIDE 0.9% 100 ML IVPB STA (18:19)
[2024-10-09] MEDS ORDERED: NALOXONE 0.4 MG/ML 1 ML VIAL IV PRN (18:20)
[2024-10-09] MEDS: VANCOMYCIN 1,500 MG in SODIUM CHLORIDE 0.9% 500 ML 500 ML IVPB STA (18:47)
[2024-10-09] MEDS: SODIUM CHLORIDE 0.9% 1,000 ML IV SCH (18:52)
[2024-10-09] MEDS: HYDROmorphone 1 MG/ML 1 ML SYRINGE IVP PRN (20:33)
--- NOTE | 2024-10-09 23:37 | P.HPIM ---
History of Present Illness H&P Date: 10/09/24 Chief Complaint: Wound/laceration Patient is a 84-year-old male with hyperlipidemia, hypertension, nephrolithiasis, prostate cancer (last radiation therapy was about a year ago) presented to the emergency department for bilateral finger infections. Patient reports that he got a splinter in the his right index finger about 3 weeks ago. After he removed the splinter, he noticed that the wound has expanded in size over the past 2 to 3 weeks. The pain in his right index finger has also gotten worse over the past few days which made him to come to the ED for evaluation. He now reports a sharp stabbing, burning sensation surrounding the wound on his right index finger with the severity of 6 out of 10. He also noticed bleeding and drainage oozing out of the wound. Patient reports he never had anything like this before. Denies any history of diabetes. In addition patient reports a wound on his left middle finger that he got when his dog scratched him about a month ago before Thanksgiving. He also noticed this wound has gotten bigger over time. However denies any drainage or bleeding from the wound on his left middle finger. Patient has tried using sodium peroxide solution thus far with no improvement. Patient denies any numbness, tingling sensation around his fingertips. He denies chest pain, shortness of breath, fever, chills, nausea, vomiting, diarrhea, constipation, lower extremity tingling or numbness, hematochezia/melena. ED documentation reviewed. In the ED patient was treated with cefepime 2 g IV x 1 Vitals on admission temperature 97.9, pulse rate 63, respiratory rate 16, blood pressure 133/70, O2 sat 99% on room air Bilateral x-ray of the hand showed soft tissue swelling of the right index finger. No underlying bony erosion to suggest contiguous osteomyelitis. 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 No acute fracture seen. Labs on admission show WBC 6.5, hemoglobin 11.6, hematocrit 36, platelet 333, sodium 139, potassium 4.3, chloride 105, carbon dioxide 23, BUN 20, creatinine 1.53, glucose 103, C-reactive protein 5.5 Review of systems: Pertinent positives and negatives as discussed in HPI, a complete review of systems was performed and all other systems are negative. PMH: Hyperlipidemia, hypertension, history of kidney stones, prostate cancer PSH: Orthopedic surgery FMH: No pertinent family history Allergies: No known drug allergies Social history: Tobacco: Never smoker Alcohol: None reported Recreational drugs: None reported Travel: No travel history Sick contacts: No sick contacts Physical examination: Vital signs reviewed General: nontoxic, no distress, appears at stated age, well appearing Derm: warm, dry, intact Head: atraumatic, normocephalic, symmetric Eyes: EOMI, anicteric sclera Mouth: no lip lesion, mucus membranes moist Cardiovascular: S1 S2 reg, no murmur Lungs: CTA bilateral, no rhonchi, no rales, no accessory muscle use Abdominal: soft, non-tender to palpation Extremities: No cyanosis, clubbing, or pedal edema. A 5 cm long x 2 cm wide wound on patient's right index finger with swelling and erythema, no signs of bleeding or purulent drainage. 2 cm long x 2 cm wide wound on patient's left middle finger with scab forming over the wound surface with no signs of swelling, erythema, bleeding, purulent drainage Neuro: Alert, Gross neurological examination did not reveal any focal deficits. Cranial nerves II to XII grossly intact. Bilateral upper and lower extremity muscle strength 5 out of 5 and sensation intact. Psych: appropriate affect Assessment/Plan: 84-year-old male with hyperlipidemia, hypertension, history of kidney stones, prostate cancer presented to the emergency department for bilateral finger in fections. Patient will be admitted to internal medicine service. Active: #. Cellulitis of right index finger Continue vancomycin per pharmacy dosing and Cefepime 2g q12h (renal adjusted dose) Bilateral x-ray of the hand showed soft tissue swelling of the right index finge r. Continue normal saline at 20 cc an hour CRP elevated at 5.5 Consult Hand-surgery (Dr Whatley) Involved areas marked #. Normocytic anemia Hemoglobin 11.6, MCV 95 Monitor morning CBC Patient denies melena/hematochezia #. Acute kidney injury Creatinine 1.53, with a baseline creatinine of around 1.2 Continue normal saline at 20 cc an hour Monitor morning BMP #. Hyperglycemia, no documented history of diabetes mellitus Glucose 103 Accu-Cheks every 6 hours Obtain hemoglobin A1c Chronic: #. Hyperlipidemia #. Hypertension Restart metoprolol tartrate 50 mg twice daily F: No restrictions E: Replete as needed N: Heart healthy diet A: Wheelchair DVT prophylaxis: Lovenox 40 mg subcu daily The patient is admitted with an anticipated more than 2 midnight stay for evaluation of cellulitis of bilateral fingers CODE STATUS: Full code Discussed with: Patient Anticipated discharge place: Home Past Medical History Past Medical History: Cancer, Hyperlipidemia, Hypertension Additional Past Medical History / Comment(s): KIDNEY STONES, GLAUCOMA, PROSTATE CA History of Any Multi-Drug Resistant Organisms: None Reported Past Surgical History: Orthopedic Surgery Additional Past Surgical History / Comment(s): HEEL SPURS REMOVED Past Psychological History: No Psychological Hx Reported Smoking Status: Never smoker Past Alcohol Use History: None Reported Past Drug Use History: None Reported - Past Family History Father Family Medical History: Cancer Mother Family Medical History: Cancer Medications and Allergies Home Medications Medication Instructions Recorded Confirmed Type Metoprolol Tartrate [Lopressor] 50 mg PO BID 12/30/14 10/09/24 History Acetaminophen Tab [Tylenol] 325 mg PO HS 10/09/24 10/09/24 History Tamsulosin HCl [Flomax] 0.4 mg PO HS 10/09/24 10/09/24 History Allergies Allergy/AdvReac Type Severity Reaction Status Date / Time No Known Allergies Allergy Verified 10/09/24 13:39 Physical Exam Vitals: Vital Signs Temp Pulse Resp BP Pulse Ox 10/09/24 20:19 97.9 F 63 16 133/70 99 10/09/24 18:53 98.1 F 99 18 124/72 97 10/09/24 13:34 98.6 F 66 18 97/64 98 Intake and Output 10/09/24 10/09/24 10/09/24 06:59 14:59 22:59 Other: Weight 84.822 kg Results CBC & Chem 7: 10/09/24 14:47 10/10/24 02:18 Labs: Abnormal Lab Results - Last 24 Hours (Table) 10/09/24 10/09/24 Range/Units 14:47 14:47 RBC 3.79 L (4.30-5.90) m/uL Hgb 11.6 L (13.0-17.5) gm/dL Hct 36.0 L (39.0-53.0) % Lymphocytes # 0.7 L (1.0-4.8) k/uL Creatinine 1.53 H (0.66-1.25) mg/dL Glucose 103 H (74-99) mg/dL AST 15 L (17-59) U/L C-Reactive Protein 5.5 H (<1.0) mg/dL
[2024-10-10 03:12] LABS: African American GFR (CKD) 52 (>60 ml/min/1.73 sqM); Anion Gap 10 mmol/L; Blood Urea Nitrogen 19 mg/dL (9-20); Calcium 8.3 mg/dL (8.4-10.2); Carbon Dioxide 20 mmol/L (22-30); Chloride 108 mmol/L (98-107); Glucose 134 mg/dL (74-99); Non-African American GFR(CKD) 45 (>60 ml/min/1.73 sqM); Sodium 138 mmol/L (137-145)
[2024-10-10] MEDS: CEFEPIME 2 GM in SODIUM CHLORIDE 0.9% 100 ML IVPB SCH (05:32)
[2024-10-10 05:40] LABS: Glucose,Whole Blood 100 mg/dL (70-110)
[2024-10-10] MEDS: ENOXAPARIN 40 MG/0.4 ML SYRINGE SQ SCH (08:41)
[2024-10-10] MEDS: METOPROLOL TARTRATE 50 MG TAB PO SCH (08:41)
[2024-10-10 08:47] LABS: BUN/Creat Ratio 12.13 Ratio (12.00-20.00); Blood Urea Nitrogen 18.2 mg/dL (9.0-27.0); Glucose 119 mg/dL (70-110)
[2024-10-10 08:48] LABS: Calcium 8.1 mg/dL (8.7-10.3); Carbon Dioxide 20.6 mmol/L (21.6-31.8); Chloride 110 mmol/L (96-109); Potassium 3.9 mmol/L (3.5-5.5); Sodium 140 mmol/L (135-145)
[2024-10-10 09:12] LABS: Basophils # (A) 0.03 X 10*3/uL (0.00-0.10); Basophils % (A) 0.6 %; HCT 32.1 % (39.6-50.0); HGB 10.2 g/dL (13.0-17.0); Lymphocytes # (A) 0.77 X 10*3/uL (0.90-5.00); Lymphocytes % (A) 15.3 %; MCH 29.8 pg (27.0-32.0); MCHC 31.8 g/dL (32.0-37.0); MCV 93.9 FL (80.0-97.0); Mean Platelet Volume 9.1 FL (9.5-12.2); Monocytes # (A) 0.37 X 10*3/uL (0.20-1.00); Monocytes % (A) 7.4 %; NRBC Per 100 WBC 0 X 10*3/uL (0.00-0.01); Neutrophils # (A) 3.63 X 10*3/uL (1.80-7.70); Neutrophils % (A) 72.3 %; Platelet Count 260 X 10*3/uL (140-440); RBC 3.42 X 10*6/uL (4.40-5.60); WBC 5.02 X 10*3/uL (4.50-10.00)
[2024-10-10] MEDS: VANCOMYCIN 1,500 MG in SODIUM CHLORIDE 0.9% 500 ML 500 ML IVPB SCH (12:13)
--- NOTE | 2024-10-10 13:12 | P.PN ---
Subjective Progress Note Date: 10/10/24 Hospital Course: 84-year-old male with hyperlipidemia, hypertension, nephrolithiasis, prostate cancer (last radiation therapy was about a year ago) presented to the emergency department for bilateral finger infections. itals on admission temperature 97.9, pulse rate 63, respiratory rate 16, blood pressure 133/70, O2 sat 99% on room air Bilateral x-ray of the hand showed soft tissue swelling of the right index finger. No underlying bony erosion to suggest contiguous osteomyelitis. 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 No acute fracture seen. Labs on admission show WBC 6.5, hemoglobin 11.6, hematocrit 36, platelet 333, sodium 139, potassium 4.3, chloride 105, carbon dioxide 23, BUN 20, creatinine 1.53, glucose 103, C-reactive protein 5.5 Patient started on IV vancomycin, IV cefepime. Hand surgery consulted, pending recommendations Subjective: Patient seen and examined at bedside. No acute events overnight. Pertinent positives and negatives as discussed above, a complete review of systems was performed and all other systems are negative. Vitals Signs Reviewed. General: Nontoxic, no distress, appears at stated age Derm: Warm, dry, A 5 cm long x 2 cm wide wound on patient's right index finger with swelling and erythema, no signs of bleeding or purulent drainage. 2 cm long x 2 cm wide wound on patient's left middle finger with scab forming over the wound surface with no signs of swelling, erythema, bleeding, purulent dr vega Head: Atraumatic, normocephalic, symmetric Eyes: EOMI, no lid lag, anicteric sclera Mouth: No lip lesion, mucus membranes moist Cardiovascular: S1S2 reg, no murmur Lungs: CTA bilateral, no rhonchi, no rales, no accessory muscle use Abdominal: Soft, nontender to palpation, no guarding, no appreciable organomegaly Ext: No gross muscle atrophy, no edema, no contractures Neuro: CN II-XI grossly intact, no focal neuro deficits Psych: Alert, oriented, appropriate affect Data Reviewed Today: Pertinent Labs: Hemoglobin 10.2, around baseline, creatinine 1.5, bicarb 20.6, anion gap 9.4 Imaging: MRI bilateral hand pending Assessment and Plan: Active: Bilateral hand cellulitis, involving right index finger and left middle finger Mild JAVIER, nonoliguric -Continue IV vancomycin 1500 mg, monitor for renal toxicity, okay to continue IV cefepime 2 g every 12 hours, will likely de-escalate to ceftriaxone tomorrow -MRI bilateral hand pending -Tylenol as needed, IV Dilaudid as needed for pain Normocytic anemia -Possibly in the setting of acute illness -Repeat CBC tomorrow Mild non-anion gap metabolic acidosis -Likely secondary to normal saline Chronic: BPH Hypertension DVT ppx: Lovenox Code status: Full code Anticipated discharge place: Pending clinical course Anticipated discharge time: Pending clinical course Objective - Vital Signs Vital signs: Vital Signs Temp 98.1 F 10/10/24 08:40 Pulse 61 10/10/24 08:40 Resp 16 10/10/24 08:40 BP 134/74 10/10/24 08:40 Pulse Ox 100 10/10/24 08:40 FiO2 Intake & Output 10/09/24 10/10/24 10/10/24 18:59 06:59 18:59 Weight 84.822 kg - Labs CBC & Chem 7: 10/10/24 04:13 10/10/24 04:13 Labs: Abnormal Lab Results - Last 24 Hours (Table) 10/09/24 10/09/24 10/09/24 Range/Units 14:47 14:47 14:47 RBC 3.79 L (4.30-5.90) m/uL Hgb 11.6 L (13.0-17.5) gm/dL Hct 36.0 L (39.0-53.0) % MCHC (32.0-37.0) g/dL MPV (9.5-12.2) FL Lymphocytes # 0.7 L (1.0-4.8) k/uL ESR 82 H (0-20) mm/Hr Chloride (98-107) mmol/L Carbon Dioxide (22-30) mmol/L Creatinine 1.53 H (0.66-1.25) mg/dL Est GFR (CKD-EPI) (>=60) Glucose 103 H (74-99) mg/dL Calcium (8.4-10.2) mg/dL AST 15 L (17-59) U/L C-Reactive Protein 5.5 H (<1.0) mg/dL 10/10/24 10/10/24 10/10/24 Range/Units 02:18 04:13 04:13 RBC 3.42 L (4.30-5.90) m/uL Hgb 10.2 L (13.0-17.5) gm/dL Hct 32.1 L (39.0-53.0) % MCHC 31.8 L (32.0-37.0) g/dL MPV 9.1 L (9.5-12.2) FL Lymphocytes # 0.77 L (1.0-4.8) k/uL ESR (0-20) mm/Hr Chloride 108 H 110 H (98-107) mmol/L Carbon Dioxide 20 L 20.6 L (22-30) mmol/L Creatinine 1.44 H (0.66-1.25) mg/dL Est GFR (CKD-EPI) 46 L (>=60) Glucose 134 H 119 H (74-99) mg/dL Calcium 8.3 L 8.1 L (8.4-10.2) mg/dL AST (17-59) U/L C-Reactive Protein (<1.0) mg/dL
[2024-10-10] MEDS: HYDROmorphone 0.5 MG/0.5 ML SYRINGE IVP PRN (14:28)
[2024-10-10 16:00] LABS: Glucose,Whole Blood 94 mg/dL (70-110)
--- NOTE | 2024-10-10 16:37 | MR ---
EXAMINATION TYPE: MR hand RT wo/w con DATE OF EXAM: 10/10/2024 3:52 PM COMPARISON: 10/09/2024. CLINICAL INDICATION: Male, 84 years old with history of rule out osteomyelitis/deep infection index f jonas, Rule out osteomyelitis/deep infection index finger anterior wound mid finger TECHNIQUE: Multiplanar, multisequence MR imaging of the right hand was performed IV Contrast: 7.5 cc Gadobutrol (None if empty) FINDINGS: There is no evidence of bone marrow edema or fracture. There is no periosteal reaction. Soft tissue edema of the second digit without organizing fluid collection. No abnormal bone marrow si gnal on T1-weighted imaging to suggest osteomyelitis. There is some fluid layering along the posterior aspect of the extensor tendon of the second digit se kelly [id number] image [id number] at the metacarpal phalangeal joint. Thought to be mostly contained within the soft tissues. Musculature demonstrates age-appropriate signal and volume. There is no evidence of a joint effusion. There is no evidence of synovitis. There is no evidence of radial or ulnar bursitis. Flexor tendons are intact. Extensor tendons are intact. Capsular collateral ligaments are intact. Sagittal bands are intact. There is no evidence of a barbara injury. Volar plates are intact. Extensor hoods are intact. IMPRESSION: * Soft tissue edema of the second digit without organizing fluid collection. No abnormal bone marrow signal on T1-weighted imaging to suggest osteomyelitis. * Fluid over the extensor tendon near the second digit metacarpal phalangeal joint possibly represen ting a component of cellulitis with early tenosynovitis not excluded correlate for pain over the meta carpal phalangeal joint of the second digit posteriorly. [facility], , 10/10/2024 4:34 PM
[2024-10-10] MEDS: TAMSULOSIN 0.4 MG CAP.ER.24H PO SCH (20:33)
[2024-10-10 23:10] LABS: Glucose,Whole Blood 111 mg/dL (70-110)
[2024-10-11 05:43] LABS: Glucose,Whole Blood 101 mg/dL (70-110)
[2024-10-11 09:11] LABS: Basophils # (A) 0.04 X 10*3/uL (0.00-0.10); Basophils % (A) 0.7 %; Eosinophils # (A) 0.28 X 10*3/uL (0.04-0.35); HCT 33.3 % (39.6-50.0); HGB 10.3 g/dL (13.0-17.0); Lymphocytes # (A) 0.54 X 10*3/uL (0.90-5.00); Lymphocytes % (A) 9.7 %; MCH 29.8 pg (27.0-32.0); MCHC 30.9 g/dL (32.0-37.0); MCV 96.2 FL (80.0-97.0); Mean Platelet Volume 9.4 FL (9.5-12.2); Monocytes # (A) 0.38 X 10*3/uL (0.20-1.00); Monocytes % (A) 6.8 %; NRBC Per 100 WBC 0 X 10*3/uL (0.00-0.01); Neutrophils # (A) 4.32 X 10*3/uL (1.80-7.70); Neutrophils % (A) 77.4 %; Platelet Count 247 X 10*3/uL (140-440); RBC 3.46 X 10*6/uL (4.40-5.60); RDW 13.9 % (11.5-14.5); WBC 5.58 X 10*3/uL (4.50-10.00)
[2024-10-11 09:33] LABS: Blood Urea Nitrogen 18.9 mg/dL (9.0-27.0); Carbon Dioxide 20.2 mmol/L (21.6-31.8); Chloride 108 mmol/L (96-109); Glucose 99 mg/dL (70-110); Potassium 4.6 mmol/L (3.5-5.5); Sodium 138 mmol/L (135-145)
[2024-10-11 09:34] LABS: Calcium 8.2 mg/dL (8.7-10.3)
--- NOTE | 2024-10-11 10:00 | P.CNOR ---
History of Present Illness - [facility] Consult date: 10/11/24 History of present illness: The patient is a very pleasant 84-year-old male with multiple medical problems who is presently admitted to internal medicine with bilateral finger infections. The patient was seen in the ER on 10/10/2024. According to the patient he sustained injuries to both of his finger several weeks ago. He states that a dog scratched the back of his left middle finger and he had a splinter in his right index finger. He initially attempted to treat it himself with peroxide and local wound care but they progressively worsened. Past Medical History Past Medical History: Cancer, Hyperlipidemia, Hypertension Additional Past Medical History / Comment(s): KIDNEY STONES, GLAUCOMA, PROSTATE CA History of Any Multi-Drug Resistant Organisms: None Reported Past Surgical History: Orthopedic Surgery Additional Past Surgical History / Comment(s): HEEL SPURS REMOVED, left knee rep lacement Past Anesthesia/Blood Transfusion Reactions: No Reported Reaction Past Psychological History: No Psychological Hx Reported Smoking Status: Never smoker Past Alcohol Use History: None Reported Past Drug Use History: None Reported - Past Family History Father Family Medical History: Cancer Mother Family Medical History: Cancer Medications and Allergies Home Medications Medication Instructions Recorded Confirmed Type Metoprolol Tartrate [Lopressor] 50 mg PO BID 12/30/14 10/09/24 History Acetaminophen Tab [Tylenol] 325 mg PO HS 10/09/24 10/09/24 History Tamsulosin HCl [Flomax] 0.4 mg PO HS 10/09/24 10/09/24 History Allergies Allergy/AdvReac Type Severity Reaction Status Date / Time No Known Allergies Allergy Verified 10/09/24 13:39 Physical Examination the patient is [facility] comfortably [facility]. He is alert and able to answer questions. Focused exam of the upper extremities were conducted. Left upper extremity: there is a large chronic-appearing open wound with no active drainage or purulence over the dorsal aspect of the middle finger ex tending from the MP joint to the PIP joint. Right upper extremity: there is a large chronic-appearing open wound over the dorsal aspect of the index finger extending from the MP joint over the PIP joint into the mid aspect of the middle phalanx. There is diffuse swelling and mild erythema but no fluctuance, purulence or active drainage. Results MRI of the right hand shows no evidence of deep space infection or osteomyelitis in the index finger. - Labs Labs: Abnormal Lab Results - Last 24 Hours (Table) 10/10/24 10/11/24 10/11/24 Range/Units 23:08 04:40 04:40 RBC 3.46 L (4.40-5.60) X 10*6/uL Hgb 10.3 L (13.0-17.0) g/dL Hct 33.3 L (39.6-50.0) % MCHC 30.9 L (32.0-37.0) g/dL MPV 9.4 L (9.5-12.2) FL Lymphocytes # 0.54 L (0.90-5.00) X 10*3/uL Carbon Dioxide 20.2 L (21.6-31.8) mmol/L Est GFR (CKD-EPI) 50 L (>=60) POC Glucose (mg/dL) 111 H (70-110) mg/dL Calcium 8.2 L (8.7-10.3) mg/dL Microbiology - Last 24 Hours (Table) 10/09/24 18:24 Blood Culture Gram Stain - Preliminary Blood Blood Culture - Preliminary Molecular ID H & H 10/09/24 10/10/24 10/11/24 Range/Units 14:47 04:13 04:40 Hgb 11.6 L 10.2 L 10.3 L (13.0-17.5) gm/dL Hct 36.0 L 32.1 L 33.3 L (39.0-53.0) % Result Diagrams: 10/11/24 04:40 10/11/24 04:40 Assessment and Plan Assessment: right index finger and left middle finger wounds Plan: The patient was seen and examined by myself as I was on-call for our group. The patient was discussed with my hand partner Dr. Wells. He recommended MRIs of both hands to rule out deep space infection or osteomyelitis. MRI of the right hand was taken yesterday. Due to the hospital not having MRI availability today the second MRI of his left hand will be able to be obtained until tomorrow. Further recommendations will be made by Dr. Wells once this finished, likely on Wednesday. We will follow peripherally until the MRI is completed and Dr. Wells or his team will make final recommendations on Wednesday. In the interim wound care and antibiotics per infectious disease and primary team.
[2024-10-11 12:11] LABS: Glucose,Whole Blood 144 mg/dL (70-110)
--- NOTE | 2024-10-11 12:30 | P.PN ---
Subjective Progress Note Date: 10/11/24 Hospital Course: 84-year-old male with hyperlipidemia, hypertension, nephrolithiasis, prostate cancer (last radiation therapy was about a year ago) presented to the emergency department for bilateral finger infections. itals on admission temperature 97.9, pulse rate 63, respiratory rate 16, blood pressure 133/70, O2 sat 99% on room air Bilateral x-ray of the hand showed soft tissue swelling of the right index finger. No underlying bony erosion to suggest contiguous osteomyelitis. 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 No acute fracture seen. Labs on admission show WBC 6.5, hemoglobin 11.6, hematocrit 36, platelet 333, sodium 139, potassium 4.3, chloride 105, carbon dioxide 23, BUN 20, creatinine 1.53, glucose 103, C-reactive protein 5.5 Patient started on IV vancomycin, IV cefepime. Hand surgery consulted, pending recommendations Subjective: Patient seen and examined at bedside. No acute events overnight. Pertinent positives and negatives as discussed above, a complete review of systems was performed and all other systems are negative. Vitals Signs Reviewed. General: Nontoxic, no distress, appears at stated age Derm: Warm, dry, A 5 cm long x 2 cm wide wound on patient's right index finger with swelling and erythema, no signs of bleeding or purulent drainage. 2 cm long x 2 cm wide wound on patient's left middle finger with scab forming over the wound surface with no signs of swelling, erythema, bleeding, purulent dr vega Head: Atraumatic, normocephalic, symmetric Eyes: EOMI, no lid lag, anicteric sclera Mouth: No lip lesion, mucus membranes moist Cardiovascular: S1S2 reg, no murmur Lungs: CTA bilateral, no rhonchi, no rales, no accessory muscle use Abdominal: Soft, nontender to palpation, no guarding, no appreciable organomegaly Ext: No gross muscle atrophy, no edema, no contractures Neuro: CN II-XI grossly intact, no focal neuro deficits Psych: Alert, oriented, appropriate affect Data Reviewed Today: Pertinent Labs: Hemoglobin 10.3, creatinine 1.4, glucose range between 99-1 44 Imaging: MRI right hand completed which did not suggest any osteomyelitis., Possibly component of cellulitis with early tenosynovitis Assessment and Plan: Active: Bilateral hand cellulitis, involving right index finger and left middle finger Mild JAVIER, nonoliguric -Continue IV vancomycin 1500 mg, monitor for renal toxicity, okay to continue IV cefepime 2 g every 12 hours, will likely de-escalate to ceftriaxone tomorrow -ID consulted -MRI right hand completed which did not suggest any osteomyelitis., Possibly component of cellulitis with early tenosynovitis -MRI left hand pending -Tylenol as needed, IV Dilaudid as needed for pain -Orthopedic surgery note reviewed, further recommendations with regards to left hand on Wednesday after MRI Normocytic anemia -Possibly in the setting of acute illness -Repeat CBC tomorrow -No active bleeding Mild non-anion gap metabolic acidosis -Likely secondary to normal saline Chronic: BPH Hypertension DVT ppx: Lovenox Code status: Full code Anticipated discharge place: Pending clinical course Anticipated discharge time: Pending clinical course Objective - Vital Signs Vital signs: Vital Signs Temp 97.7 F 10/11/24 07:00 Pulse 54 L 10/11/24 07:00 Resp 17 10/11/24 07:00 BP 110/55 10/11/24 07:00 Pulse Ox 96 10/11/24 07:00 FiO2 Intake & Output 10/10/24 10/11/24 10/11/24 18:59 06:59 18:59 Weight 84.822 kg Other: Voiding Method Toilet # Voids 1 - Labs CBC & Chem 7: 10/11/24 04:40 10/11/24 04:40 Labs: Abnormal Lab Results - Last 24 Hours (Table) 10/10/24 10/11/24 10/11/24 Range/Units 23:08 04:40 04:40 RBC 3.46 L (4.40-5.60) X 10*6/uL Hgb 10.3 L (13.0-17.0) g/dL Hct 33.3 L (39.6-50.0) % MCHC 30.9 L (32.0-37.0) g/dL MPV 9.4 L (9.5-12.2) FL Lymphocytes # 0.54 L (0.90-5.00) X 10*3/uL Carbon Dioxide 20.2 L (21.6-31.8) mmol/L Est GFR (CKD-EPI) 50 L (>=60) POC Glucose (mg/dL) 111 H (70-110) mg/dL Calcium 8.2 L (8.7-10.3) mg/dL 10/11/24 Range/Units 12:10 RBC (4.40-5.60) X 10*6/uL Hgb (13.0-17.0) g/dL Hct (39.6-50.0) % MCHC (32.0-37.0) g/dL MPV (9.5-12.2) FL Lymphocytes # (0.90-5.00) X 10*3/uL Carbon Dioxide (21.6-31.8) mmol/L Est GFR (CKD-EPI) (>=60) POC Glucose (mg/dL) 144 H (70-110) mg/dL Calcium (8.7-10.3) mg/dL Microbiology - Last 24 Hours (Table) 10/09/24 18:24 Blood Culture Gram Stain - Preliminary Blood Blood Culture - Preliminary Molecular ID
[2024-10-11 17:07] LABS: Glucose,Whole Blood 103 mg/dL (70-110)
--- NOTE | 2024-10-11 22:24 | P.CONS ---
History of Present Illness - Reason for Consult Consult date: 10/11/24 Bilateral hand cellulitis Requesting physician: Storm Barth - Chief Complaint Right index and left middle finger pain swelling and redness x 2 weeks - History of Present Illness Patient is a 84-year-old male with a past medical history significant for hypertension hyperlipidemia kidney stone prostate cancer presenting to the hospital 2 days ago for evaluation of bilateral hand finger infection patient apparently did have a cellulitis right index finger about 2 weeks ago and the patient has noticed subsequent worsening swelling redness and pain to the right index finger area at the same time the patient did have a scratch from his dog on left third digit and he did have follow-up with swelling redness to the left third digit patient did not have any improvement and did have worsening pain and swelling for the patient presented to the hospital patient denies high-grade fever or any chills has been complaining of pain especially to the right index finger to be throbbing moderate intensity without radiation with associated swelling and mention slight drainage patient presentation to the hospital was afebrile and no fever have been recorded subsequently patient was not tachycardic hypotensive or hypoxic patient did have a white count of 6.5 creatinine is 1.4 electrolytes normal liver enzymes normal patient blood culture positive for Streptococcus hominis/staph epi patient did have an x-ray which did show soft tissue swelling of the right index finger no underlying bony erosion no fracture seen also have the hand MRI fluid over the extensor tendon near the second digit metacarpal phalangeal joint possibly representing a component of c ellulitis with early tenosynovitis not excluded patient has been treated with vancomycin and cefepime over the last 2 days infectious disease was consulted today for further management of antibiotic therapy Review of Systems Positive point and negatives has been mentioned in the HPI, complete review of systems was performed and all other systems are negative Past Medical History Past Medical History: Cancer, Hyperlipidemia, Hypertension Additional Past Medical History / Comment(s): KIDNEY STONES, GLAUCOMA, PROSTATE CA History of Any Multi-Drug Resistant Organisms: None Reported Past Surgical History: Orthopedic Surgery Additional Past Surgical History / Comment(s): HEEL SPURS REMOVED, left knee replacement Past Anesthesia/Blood Transfusion Reactions: No Reported Reaction Past Psychological History: No Psychological Hx Reported Smoking Status: Never smoker Past Alcohol Use History: None Reported Past Drug Use History: None Reported - Past Family History Father Family Medical History: Cancer Mother Family Medical History: Cancer Medications and Allergies Home Medications Medication Instructions Recorded Confirmed Type Metoprolol Tartrate [Lopressor] 50 mg PO BID 12/30/14 10/09/24 History Acetaminophen Tab [Tylenol] 325 mg PO HS 10/09/24 10/09/24 History Tamsulosin HCl [Flomax] 0.4 mg PO HS 10/09/24 10/09/24 History Allergies Allergy/AdvReac Type Severity Reaction Status Date / Time No Known Allergies Allergy Verified 10/09/24 13:39 Physical Exam Vitals: Vital Signs Temp Pulse Pulse Resp BP BP Pulse Ox 10/11/24 07:00 97.7 F 54 L 17 110/55 96 10/11/24 00:22 97.7 F 60 16 109/65 98 10/10/24 18:55 98.1 F 62 18 119/70 98 10/10/24 18:00 98.1 F 57 L 16 130/73 98 10/10/24 14:23 98.3 F 70 18 101/66 98 Intake and Output 10/10/24 10/11/24 10/11/24 22:59 06:59 14:59 Other: Voiding Method Toilet # Voids 1 1 Weight 84.822 kg GENERAL DESCRIPTION: Elderly male lying in bed, no distress. No tachypnea or accessory muscle of respiration use. HEENT: Shows Pallor , no scleral icterus. Oral mucous membrane is dry. No pharyngeal erythema or thrush NECK: Trachea central, no thyromegaly. LUNGS: Unlabored breathing. Clear to auscultation anteriorly. No wheeze or crackle. HEART: S1, S2, regular rate and rhythm. No loud murmur ABDOMEN: Soft, no tenderness , guarding or rigidity, no organomegaly EXTREMITIES: Right index finger dorsum did have a pustule with significant swelling redness with laceration on dorsal aspect of the left third finger no drainage was noticed SKIN: No rash, no masses palpable. NEUROLOGICAL: The patient is awake, alert, oriented x3, mood and affect normal. Results CBC & Chem 7: 10/11/24 04:40 10/11/24 04:40 Labs: Abnormal Lab Results - Last 24 Hours (Table) 10/10/24 10/11/24 10/11/24 Range/Units 23:08 04:40 04:40 RBC 3.46 L (4.40-5.60) X 10*6/uL Hgb 10.3 L (13.0-17.0) g/dL Hct 33.3 L (39.6-50.0) % MCHC 30.9 L (32.0-37.0) g/dL MPV 9.4 L (9.5-12.2) FL Lymphocytes # 0.54 L (0.90-5.00) X 10*3/uL Carbon Dioxide 20.2 L (21.6-31.8) mmol/L Est GFR (CKD-EPI) 50 L (>=60) POC Glucose (mg/dL) 111 H (70-110) mg/dL Calcium 8.2 L (8.7-10.3) mg/dL 10/11/24 Range/Units 12:10 RBC (4.40-5.60) X 10*6/uL Hgb (13.0-17.0) g/dL Hct (39.6-50.0) % MCHC (32.0-37.0) g/dL MPV (9.5-12.2) FL Lymphocytes # (0.90-5.00) X 10*3/uL Carbon Dioxide (21.6-31.8) mmol/L Est GFR (CKD-EPI) (>=60) POC Glucose (mg/dL) 144 H (70-110) mg/dL Calcium (8.7-10.3) mg/dL Microbiology - Last 24 Hours (Table) 10/09/24 18:24 Blood Culture Gram Stain - Final Blood Blood Culture - Final Staph hominis sub sp. hominis Staphylococcus epidermidis Molecular ID Assessment and Plan (1) Cellulitis of left middle finger Current Visit: Yes Status: Acute Code(s): L03.012 - CELLULITIS OF LEFT FINGER SNOMED Code(s): 49843566780734 (2) Cellulitis of right index finger Current Visit: Yes Status: Acute Code(s): L03.011 - CELLULITIS OF RIGHT FINGER SNOMED Code(s): 79262793730178 Plan: 1patient presented to hospital with pain swelling redness to the right index and left middle finger right side he started with a silver and left middle finger with dog scratch with concerning for early tenosynovitis on the right side and possible abscess 2-patient would benefit from surgical drainage and deep culture hand surgery has already been consulted 3-local culture if the area started to drain discussed with the nursing staff especially on the right side 4-vancomycin pharmacy to dose target trough of 15 while watching kidney function and Vanco trough closely and cefepime provide adequate empiric coverage while waiting for the cultures to be completed We will follow on clinical condition and cultures to further adjust medication if needed Thank you for this consultation we will follow the patient along with you Dictation was produced using [employer] dictation software. please excuse any grammatical, word or spelling errors.
[2024-10-12 10:27] LABS: African American GFR (CKD) 49 (>60 ml/min/1.73 sqM); Non-African American GFR(CKD) 42 (>60 ml/min/1.73 sqM)
--- NOTE | 2024-10-12 13:13 | P.PN ---
Subjective Progress Note Date: 10/12/24 Hospital Course: 84-year-old male with hyperlipidemia, hypertension, nephrolithiasis, prostate cancer (last radiation therapy was about a year ago) presented to the emergency department for bilateral finger infections. itals on admission temperature 97.9, pulse rate 63, respiratory rate 16, blood pressure 133/70, O2 sat 99% on room air Bilateral x-ray of the hand showed soft tissue swelling of the right index finger. No underlying bony erosion to suggest contiguous osteomyelitis. 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 No acute fracture seen. Labs on admission show WBC 6.5, hemoglobin 11.6, hematocrit 36, platelet 333, sodium 139, potassium 4.3, chloride 105, carbon dioxide 23, BUN 20, creatinine 1.53, glucose 103, C-reactive protein 5.5 Patient started on IV vancomycin, IV cefepime. Hand surgery consulted, pending recommendations. ID also following. Right hand MRI did not show any osteomyelitis. Left hand MRI pending. Subjective: Patient seen and examined at bedside. No acute events overnight. Pertinent positives and negatives as discussed above, a complete review of systems was performed and all other systems are negative. Vitals Signs Reviewed. General: Nontoxic, no distress, appears at stated age Derm: Warm, dry, A 5 cm long x 2 cm wide wound on patient's right index finger with swelling and erythema, no signs of bleeding or purulent drainage. 2 cm long x 2 cm wide wound on patient's left middle finger with scab forming over the wound surface with no signs of swelling, erythema, bleeding, purulent drainage Head: Atraumatic, normocephalic, symmetric Eyes: EOMI, no lid lag, anicteric sclera Mouth: No lip lesion, mucus membranes moist Cardiovascular: S1S2 reg, no murmur Lungs: CTA bilateral, no rhonchi, no rales, no accessory muscle use Abdominal: Soft, nontender to palpation, no guarding, no appreciable organomegaly Ext: No gross muscle atrophy, no edema, no contractures Neuro: CN II-XI grossly intact, no focal neuro deficits Psych: Alert, oriented, appropriate affect Data Reviewed Today: Pertinent Labs: Creatinine 1.52, Vanco trough 14.9, blood sugars range between 10 1-1 44 Imaging: MRI right hand completed which did not suggest any osteomyelitis., Possibly component of cellulitis with early tenosynovitis Assessment and Plan: Active: Bilateral hand cellulitis, involving right index finger and left middle finger Mild JAVIER, nonoliguric -Continue IV vancomycin 1500 mg, monitor for renal toxicity, and continue IV cefepime 2 g every 12 hours -ID following -MRI right hand completed which did not suggest any osteomyelitis., Possibly component of cellulitis with early tenosynovitis -MRI left hand pending -Tylenol as needed, IV Dilaudid as needed for pain -Orthopedic surgery following, further recommendations with regards to left hand MRI Normocytic anemia -Possibly in the setting of acute illness -Repeat CBC tomorrow -No active bleeding Mild non-anion gap metabolic acidosis -Likely secondary to normal saline Chronic: BPH Hypertension DVT ppx: Lovenox Code status: Full code Anticipated discharge place: Pending clinical course Anticipated discharge time: Pending clinical course Objective - Vital Signs Vital signs: Vital Signs Temp 97.6 F 10/12/24 07:20 Pulse 60 10/12/24 07:20 Resp 16 10/12/24 07:20 BP 103/58 10/12/24 07:20 Pulse Ox 96 10/12/24 07:20 FiO2 Intake & Output 10/11/24 10/12/24 10/12/24 18:59 06:59 18:59 Intake Total 236 240 Output Total 650 125 Balance 236 -650 115 Intake: Oral 236 240 Output: Urine 650 125 Other: Voiding Method Toilet Toilet Urinal Urinal # Voids 3 2 - Labs CBC & Chem 7: 10/11/24 04:40 10/12/24 09:56 Labs: Abnormal Lab Results - Last 24 Hours (Table) 10/12/24 Range/Units 09:56 Creatinine 1.52 H (0.66-1.25) mg/dL Microbiology - Last 24 Hours (Table) 10/09/24 18:24 Blood Culture Gram Stain - Final Blood Blood Culture - Final Staph hominis sub sp. hominis Staphylococcus epidermidis Molecular ID
[2024-10-12] MEDS: VANCOMYCIN TROUGH DUE 1 EACH MISC MISCELLANE ONE (13:34)
--- NOTE | 2024-10-12 14:38 | P.PN ---
Subjective Progress Note Date: 10/12/24 Principal diagnosis: Reason for follow-up is bilateral hand finger infection Patient is a 84-year-old male with a past medical history significant for hypertension hyperlipidemia kidney stone prostate cancer presenting to the hospital for evaluation of bilateral hand finger infection which is more marked on the right index finger MRI with suspicion of possible tenosynovitis. On today's evaluation that is 10/12/2024,the patient remains to be afebrile, patient is on room air not requiring supplemental oxygen and denies any shortness of breath no chest pain or cough.Patient denies having any nausea or vomiting, no abdominal pain and no diarrhea pain to the right index finger slightly decreased did have some drainage yesterday which has been cultured. Patient did have a creatinine 1.52 blood culture with Streptococcus hominis and staph epi Objective - Vital Signs Vital signs: Vital Signs Temp 97.6 F 10/12/24 07:20 Pulse 60 10/12/24 07:20 Resp 16 10/12/24 07:20 BP 103/58 10/12/24 07:20 Pulse Ox 96 10/12/24 07:20 FiO2 Intake & Output 10/11/24 10/12/24 10/12/24 18:59 06:59 18:59 Intake Total 236 240 Output Total 650 125 Balance 236 -650 115 Intake: Oral 236 240 Output: Urine 650 125 Other: Voiding Method Toilet Toilet Urinal Urinal # Voids 3 2 - Exam GENERAL DESCRIPTION: An elderly male up in bed in no distress RESPIRATORY SYSTEM: Unlabored breathing , decreased breath sounds at bases HEART: S1 S2 regular rate and rhythm , ABDOMEN: Soft , no tenderness EXTREMITIES: Right index pain is currently dressed no drainage left middle finger dorsum did have more dried up wound - Labs CBC & Chem 7: 10/11/24 04:40 10/12/24 09:56 Labs: Abnormal Lab Results - Last 24 Hours (Table) 10/11/24 10/12/24 Range/Units 12:10 09:56 Creatinine 1.52 H (0.66-1.25) mg/dL POC Glucose (mg/dL) 144 H (70-110) mg/dL Microbiology - Last 24 Hours (Table) 10/09/24 18:24 Blood Culture Gram Stain - Final Blood Blood Culture - Final Staph hominis sub sp. hominis Staphylococcus epidermidis Molecular ID Assessment and Plan (1) Cellulitis of left middle finger Current Visit: Yes Status: Acute Code(s): L03.012 - CELLULITIS OF LEFT FINGER SNOMED Code(s): 94788436536186 (2) Cellulitis of right index finger Current Visit: Yes Status: Acute Code(s): L03.011 - CELLULITIS OF RIGHT FINGER SNOMED Code(s): 78842402933577 Plan: 1patient presented to hospital with pain swelling redness to the right index and left middle finger right side he started with a silver and left middle finger with dog scratch with concerning for early tenosynovitis on the right side and possible abscess 2-patient would benefit from surgical drainage and deep culture hand surgery has already been consulted and awaiting for the MRI to the left hand 3-local culture has been obtained and results will be followed 4-patient will be vancomycin pharmacy to dose target trough of 15 while watching kidney function and Vanco trough closely and cefepime while waiting for the culture to finalize Family the bedside question answered Dictation was produced using [employer] dictation software. please excuse any grammatical, word or spelling errors. Time with Patient: Less than 30
--- NOTE | 2024-10-12 16:08 | MR ---
EXAMINATION TYPE: MR hand LT wo/w con DATE OF EXAM: 10/12/2024 12:56 PM COMPARISON: Radiographs 10/09/2024 CLINICAL INDICATION: Male, 84 years old with pain, rule out osteomyelitis/deep infection middle finge r, Lt hand, Ant 3rd digit wound, r/o osteomyelitis, TECHNIQUE: Multiplanar, multisequence images of the left hand were obtained before and after administ ration of 7.5 mL intravenous Gadobutrol gadolinium contrast. IV Contrast: 7.5 cc Gadobutrol (None if empty) FINDINGS: There is dorsal soft tissue swelling overlying the knuckles and extending along the proximal to mid a spect of the third finger. Corresponding soft tissue enhancement. No significant tenosynovial fluid is seen. There is severe degenerative change first CMC joint with joint space narrowing, marginal spurring, an d adjacent multilocular ganglion cyst measuring 1.3 cm along the palmar radial aspect of the joint. No suspicious marrow edema or bone marrow replacement is identified with particular attention to the middle finger. No abnormal peripherally enhancing fluid collection is identified. IMPRESSION: 1. The reported wound is not clearly identified by MRI. There is subcutaneous soft tissue swelling wi th corresponding enhancement overlying the knuckles and extending into the dorsal aspect of the third finger. Correlate for cellulitis. 2. No specific findings of underlying tenosynovitis or osteomyelitis at this time. 3. 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 [facility], , 10/12/2024 4:06 PM
[2024-10-12 16:09] LABS: BUN/Creat Ratio 11.87 Ratio (12.00-20.00); Blood Urea Nitrogen 17.8 mg/dL (9.0-27.0); Calcium 8.8 mg/dL (8.7-10.3); Carbon Dioxide 22.3 mmol/L (21.6-31.8); Chloride 106 mmol/L (96-109); Glucose 107 mg/dL (70-110); Potassium 4.1 mmol/L (3.5-5.5); Sodium 140 mmol/L (135-145)
--- NOTE | 2024-10-12 16:17 | P.CNOR ---
History of Present Illness - HPI Consult date: 10/12/24 Requesting physician: Marcus Kilpatrick Consult reason: other History of present illness: Patient presents with bilateral hand wounds 1 to the right index finger the other to the left long finger that have been present for several weeks he notes the left hand wound occurred due to a dog scratch while the right index finger wound occurred due to a splinter in the back of the finger both of these events happened around [facility]. He has noticed progressive wounds forming to the back of the respective digits the left hand wound has had notable improvement over the past few days while in the hospital the right index finger wound has remained consistent as well as painful and swollen. Prior to admission to the hospital he did not have any treatments for the wounds. He notes trying at home therapies such as peroxide and Neosporin ointments without relief. Patient is right-hand dominant. He denies any numbness or tingling to the affected digits. He denies any recent fevers or chills. He had recent drainage from the wound of the right index finger but has not had any significant drainage from the left long finger. He has intact motion of the digits the left hand has improved significantly over the past couple of days and he has normal range of motion to the left long finger, the right index finger has remained painful but he is able to move the digit actively with only mild pain. Review of Systems Constitutional: Denies chills, Denies fever Respiratory: Denies pain on inspiration, Denies wheezing Musculoskeletal: Reports as per HPI Integumentary: Reports as per HPI Neurological: Denies confusion, Denies headaches Psychiatric: Denies confusion Past Medical History Past Medical History: Cancer, Hyperlipidemia, Hypertension Additional Past Medical History / Comment(s): KIDNEY STONES, GLAUCOMA, PROSTATE CA History of Any Multi-Drug Resistant Organisms: None Reported Past Surgical History: Orthopedic Surgery Additional Past Surgical History / Comment(s): HEEL SPURS REMOVED, left knee replacement Past Anesthesia/Blood Transfusion Reactions: No Reported Reaction Past Psychological History: No Psychological Hx Reported Smoking Status: Never smoker Past Alcohol Use History: None Reported Past Drug Use History: None Reported - Past Family History Father Family Medical History: Cancer Mother Family Medical History: Cancer Medications and Allergies Home Medications Medication Instructions Recorded Confirmed Type Metoprolol Tartrate [Lopressor] 50 mg PO BID 12/30/14 10/09/24 History Acetaminophen Tab [Tylenol] 325 mg PO HS 10/09/24 10/09/24 History Tamsulosin HCl [Flomax] 0.4 mg PO HS 10/09/24 10/09/24 History Allergies Allergy/AdvReac Type Severity Reaction Status Date / Time No Known Allergies Allergy Verified 10/09/24 13:39 Physical Examination Left hand exam Has mild erythema and some mild scabbing noted to the dorsal aspect of the proximal phalanx, however the previous wounds from his previous pictures have now completely healed there is no exposed tendinous or bony structures. Is only mild erythema to the dorsum of the hand he has no significant tenderness to the proximal phalanx he has full extension and flexion of all digits of the long finger as well as the rest of the hand. Focally there is no tenderness along the flexor tendon sheath of the long finger. There is no instability to any of the joints of the hand. has intact sensation to light touch throughout the hand and specifically the long finger he has intact radial pulse and brisk capillary refill throughout the hand and all digits For the right hand There is an open wound to the dorsal aspect of the index finger proximal phalanx there is dusky appearance to the dorsal aspect of the proximal phalanx extending to the dorsal aspect of the PIP joint, there is some fluid that has accumulated beneath the skin surface insistent with the epidermis elevating off of the underlying dermis, there does not appear to be any focal areas of abscess formation. He has tenderness to palpation along the dorsal aspect of the proximal phalanx, he has no tenderness to palpation along the flexor tendon sheath of the index finger or extending into the palm. He is able to actively flex and extend all joints of the index finger he has pain only with terminal extension and flexion movements of the digit is no pain with gentle passive and active motion of the PIP and DIP joints. He has intact sensation to the index finger and the remainder of the hand as well as brisk capillary refill to the index finger and the rest of the right hand Results MRI images and report of the right hand reviewed which is consistent with dorsal index finger soft tissue wound as well as associated cellulitis without overt a bscess formation and without concern for osteomyelitis, the left hand MRI was also reviewed however the full report is not yet available this also demonstrates a dorsal soft tissue wound to the long finger proximal phalanx and associated cellulitis however there is no abscess formation noted and no apparent osteomyelitis Plain x-rays of the bilateral hands were also reviewed which demonstrated soft tissue swelling of the left long finger proximal phalanx as well as right index finger proximal phalanx without any bony erosive changes to suggest osteomyelitis there is no retained foreign bodies as well there is no acute fractures or dislocations - Labs Labs: Abnormal Lab Results - Last 24 Hours (Table) 10/12/24 Range/Units 09:56 Creatinine 1.52 H (0.66-1.25) mg/dL Microbiology - Last 24 Hours (Table) 10/09/24 18:24 Blood Culture Gram Stain - Final Blood Blood Culture - Final Staph hominis sub sp. hominis Staphylococcus epidermidis Molecular ID H & H 10/09/24 10/10/24 10/11/24 Range/Units 14:47 04:13 04:40 Hgb 11.6 L 10.2 L 10.3 L (13.0-17.5) gm/dL Hct 36.0 L 32.1 L 33.3 L (39.0-53.0) % Result Diagrams: 10/11/24 04:40 10/12/24 09:56 - Diagnostic results Wrist/Hand MRI: report reviewed (MRI images and report of the right hand reviewed which is consistent with dorsal index finger soft tissue wound as well as associated cellulitis without overt abscess formation and without concern for osteomyelitis, the left hand MRI was also reviewed however the full report is not yet available th), image reviewed Assessment and Plan Assessment: Left long finger proximal phalanx wound and associated cellulitis, clinically this is improved significantly since his admission and administration of broad- spectrum antibiotics at this time I do not feel that any surgical intervention is warranted given the benign exam today Right index finger proximal phalanx wound and associated cellulitis this has not improved since his admission and administration of antibiotics he has a significant amount of devitalized tissue to the dorsal aspect of the index finger that I do not feel will allow the antibiotics to be appropriately ef fective unless debridement to healthy tissue is performed. At this time I do not have concern for involvement of the flexor tendon sheath and there is no further spread of the infection proximally into the hand Plan: Had a detailed discussion about the nature of his infection and wound to the right index finger, given the significant amount of devitalized tissue to the digit I do not feel that the antibiotics will be appropriately effective unless this is debrided back to healthy tissue, given the limited soft tissue coverage over the tenderness and bony structures of the index finger in this area we also discussed the likely need for soft tissue coverage with skin graft substitute following debridement. I have discussed with our OR staff and currently it does not appear that we have the skin graft substitutes available in house at this time however given his lack of improvement on antibiotics I feel the initial debridement to remove the devitalized tissue would be beneficial even if the formal coverage needs to be delayed until we can obtain the appropriate graft. We did detailed discussion about the risks and benefits of surgery specifically the risks being inadequate treatment of infection which could spread to other areas of the digit as well as into the hand, we discussed the nature of the skin graft substitute and that this is of nonhuman origin ever this creates a very beneficial coverage source for the finger and also eliminates the need for a secondary area of skin graft that would also need to heal and has its own risks of infection such as would be required with a rotational flap or other form of adjacent soft tissue transfer. We also discussed that given the nature of the infection as well as the trauma that will be caused at the time of surgery scarring and stiffness of the digit is something that will be likely after this injury and there is a good chance that the patient will require wound care management as well as hand therapy following the healing of his wounds in order to try and regain as much function as possible other generalized risk factors such as anesthesia risk risk of requiring further surgeries risk of damage to adjacent structures such as blood vessels nerves and tendons, as well as painful scarring and chronic swelling of the digit were also discussed in detail with the patient. Additional treatment options including continued watchful waiting as well as administration of IV antibiotics were also discussed as an alternative option however I do not feel that given his lack of response currently that this will provide an adequate treatment of his condition. Patient agrees and wishes to proceed with irrigation and debridement of the right index finger and possible application of Integra skin graft, should the graft not be available the patient still wishes to proceed with an initial irri gation and debridement and possible application of a wound VAC for the right index finger Patient should be n.p.o. at midnight Continue IV antibiotics, appreciate the input of the infectious disease team Nonweightbearing to the right hand to allow for soft tissue rest
[2024-10-12 17:05] LABS: Basophils # (A) 0.02 X 10*3/uL (0.00-0.10); Basophils % (A) 0.3 %; Eosinophils # (A) 0.27 X 10*3/uL (0.04-0.35); Eosinophils % (A) 3.7 %; HCT 39.3 % (39.6-50.0); HGB 12.4 g/dL (13.0-17.0); Lymphocytes % (A) 9.6 %; MCH 30.2 pg (27.0-32.0); MCHC 31.6 g/dL (32.0-37.0); MCV 95.6 FL (80.0-97.0); Mean Platelet Volume 9.5 FL (9.5-12.2); Monocytes # (A) 0.41 X 10*3/uL (0.20-1.00); Monocytes % (A) 5.6 %; NRBC Per 100 WBC 0 X 10*3/uL (0.00-0.01); Neutrophils # (A) 5.87 X 10*3/uL (1.80-7.70); Neutrophils % (A) 80.5 %; Platelet Count 367 X 10*3/uL (140-440); RBC 4.11 X 10*6/uL (4.40-5.60); RDW 14.1 % (11.5-14.5); WBC 7.29 X 10*3/uL (4.50-10.00)
[2024-10-12] MEDS: ACETAMINOPHEN TAB 325 MG TAB PO PRN (21:04)
--- NOTE | 2024-10-13 11:52 | P.PN ---
Subjective Progress Note Date: 10/13/24 Principal diagnosis: 84-year-old male with hyperlipidemia, hypertension, nephrolithiasis, prostate cancer (last radiation therapy was about a year ago) presented to the emergency department for bilateral finger infections. itals on admission temperature 97.9, pulse rate 63, respiratory rate 16, blood pressure 133/70, O2 sat 99% on room air Bilateral x-ray of the hand showed soft tissue swelling of the right index finger. No underlying bony erosion to suggest contiguous osteomyelitis. 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 No acute fracture seen. Labs on admission show WBC 6.5, hemoglobin 11.6, hematocrit 36, platelet 333, sodium 139, potassium 4.3, chloride 105, carbon dioxide 23, BUN 20, creatinine 1.53, glucose 103, C-reactive protein 5.5 Patient started on IV vancomycin, IV cefepime. Hand surgery consulted, pending recommendations. ID also following. Right hand MRI did not show any osteomyelitis. Right hand MRI had revealed subcutaneous soft tissue swelling extending to the dorsal aspect of the third finger. Patient seen and examined. Reports pain is adequately under control. Currently pending I&D with orthopedics today Objective - Vital Signs Vital signs: Vital Signs Temp 97.3 F L 10/13/24 07:00 Pulse 54 L 10/13/24 07:00 Resp 16 10/13/24 07:00 BP 125/66 10/13/24 07:00 Pulse Ox 94 L 10/13/24 07:00 FiO2 Intake & Output 10/12/24 10/13/24 10/13/24 18:59 06:59 18:59 Intake Total 720 Output Total 125 450 Balance 595 -450 Intake: Oral 720 Output: Urine 125 450 Other: Voiding Method Toilet Urinal # Voids 2 - Exam General: Nontoxic, no distress, appears at stated age Derm: Warm, dry, A 5 cm long x 2 cm wide wound on patient's right index finger with swelling and erythema, no signs of bleeding or purulent drainage. 2 cm long x 2 cm wide wound on patient's left middle finger with scab forming over the wound surface with no signs of swelling, erythema, bleeding, purulent drainage Head: Atraumatic, normocephalic, symmetric Eyes: EOMI, no lid lag, anicteric sclera Mouth: No lip lesion, mucus membranes moist Cardiovascular: S1S2 reg, no murmur Lungs: CTA bilateral, no rhonchi, no rales, no accessory muscle use Abdominal: Soft, nontender to palpation, no guarding, no appreciable organomegaly Ext: No gross muscle atrophy, no edema, no contractures Neuro: Renal extremity spontaneously Psych: Alert, oriented, appropriate affect - Labs CBC & Chem 7: 10/12/24 09:56 10/12/24 09:56 Labs: Abnormal Lab Results - Last 24 Hours (Table) 10/12/24 10/12/24 Range/Units 09:56 09:56 RBC 4.11 L (4.40-5.60) X 10*6/uL Hgb 12.4 L (13.0-17.0) g/dL Hct 39.3 L (39.6-50.0) % MCHC 31.6 L (32.0-37.0) g/dL Lymphocytes # 0.70 L (0.90-5.00) X 10*3/uL Est GFR (CKD-EPI) 46 L (>=60) BUN/Creatinine Ratio 11.87 L (12.00-20.00) Ratio Microbiology - Last 24 Hours (Table) 10/11/24 20:43 Gram Stain - Preliminary Finger - Right Second Wound Culture - Preliminary Assessment and Plan Assessment: Bilateral hand cellulitis, involving right index finger and left middle finger Mild JAVIER, nonoliguric -Continue pharmacy to dose vancomycin and IV cefepime NPO for U&D of right 1st finger with orthopedics today renally adjust medications, monitor javier Normocytic anemia -stable Mild non-anion gap metabolic acidosis -probably in relation to javier, stable Chronic: BPH - continue home tamsulosin 0.4 mg hs Hypertension- continue metoprolol tartrate 50 mg bid DVT ppx: Lovenox Code status: Full code Anticipated discharge place: Pending clinical course Anticipated discharge time: Pending clinical course Time with Patient: Greater than 30
--- NOTE | 2024-10-13 15:22 | P.PN ---
Subjective Progress Note Date: 10/13/24 Principal diagnosis: Reason for follow-up is bilateral hand finger infection Patient is a 84-year-old male with a past medical history significant for hypertension hyperlipidemia kidney stone prostate cancer presenting to the hospital for evaluation of bilateral hand finger infection which is more marked on the right index finger MRI with suspicion of possible tenosynovitis. On today's evaluation that is 10/13/2024, the patient continues to be afebrile, the patient is on room air and breathing comfortably, the Pt denies having any chest pain or cough, the patient denies having any abdominal pain no vomiting or any diarrhea pain to the right anything slightly decreased in intensity. No new lab has been obtained today local cultures currently pending Objective - Vital Signs Vital signs: Vital Signs Temp 97.3 F L 10/13/24 07:00 Pulse 54 L 10/13/24 07:00 Resp 16 10/13/24 07:00 BP 125/66 10/13/24 07:00 Pulse Ox 94 L 10/13/24 07:00 FiO2 Intake & Output 10/12/24 10/13/24 10/13/24 18:59 06:59 18:59 Intake Total 720 Output Total 125 450 Balance 595 -450 Intake: Oral 720 Output: Urine 125 450 Other: Voiding Method Toilet Urinal # Voids 2 - Exam GENERAL DESCRIPTION: An elderly male up in bed in no distress RESPIRATORY SYSTEM: Unlabored breathing , decreased breath sounds at bases HEART: S1 S2 regular rate and rhythm , ABDOMEN: Soft , no tenderness EXTREMITIES: Right index pain is currently dressed no drainage left middle finger dorsum did have more dried up wound - Labs CBC & Chem 7: 10/12/24 09:56 10/12/24 09:56 Labs: Abnormal Lab Results - Last 24 Hours (Table) 10/12/24 10/12/24 Range/Units 09:56 09:56 RBC 4.11 L (4.40-5.60) X 10*6/uL Hgb 12.4 L (13.0-17.0) g/dL Hct 39.3 L (39.6-50.0) % MCHC 31.6 L (32.0-37.0) g/dL Lymphocytes # 0.70 L (0.90-5.00) X 10*3/uL Est GFR (CKD-EPI) 46 L (>=60) BUN/Creatinine Ratio 11.87 L (12.00-20.00) Ratio Microbiology - Last 24 Hours (Table) 10/11/24 20:43 Gram Stain - Preliminary Finger - Right Second Wound Culture - Preliminary Assessment and Plan (1) Cellulitis of left middle finger Current Visit: Yes Status: Acute Code(s): L03.012 - CELLULITIS OF LEFT FINGER SNOMED Code(s): 20169351450372 (2) Cellulitis of right index finger Current Visit: Yes Status: Acute Code(s): L03.011 - CELLULITIS OF RIGHT FINGER SNOMED Code(s): 42714904420152 Plan: 1patient presented to hospital with pain swelling redness to the right index and left middle finger right side he started with a silver and left middle finger with dog scratch with concerning for early tenosynovitis on the right side and possible abscess 2-patient would benefit from surgical drainage and deep culture hand surgery has already been consulted and awaiting for the MRI to the left hand 3-local culture has been obtained and results will be followed 4-patient has been eval by hand surgery planning for I&D of the right index finger this afternoon culture should be obtained for now continue with vancomyci n and cefepime Family the bedside questions answered Dictation was produced using [employer] dictation software. please excuse any grammatical, word or spelling errors. Time with Patient: Less than 30
[2024-10-13] MEDS: IV FLUID CONTINUATION 1,000 ML IV ONE (15:47)
[2024-10-13] MEDS: FAMOTIDINE 20 MG/2 ML VIAL IV STA (16:22)
[2024-10-13] MEDS: ONDANSETRON 4 MG/2 ML VIAL IVP PRN (16:22)
[2024-10-13] MEDS: DEXAMETHASONE SOD PHOSPHATE 4 MG/ML 1 ML VIAL IVP STA (16:23)
[2024-10-13] MEDS ORDERED: fentaNYL (PF) 50 MCG/ML 2 ML AMP ONE (16:34)
[2024-10-13] MEDS ORDERED: LIDOCAINE 1% INJ 10MG/ML (20 ML MDV) ONE (16:34)
[2024-10-13] MEDS ORDERED: ePHEDrine 50 MG/ML 1 ML VIAL ONE (16:34)
[2024-10-13] MEDS ORDERED: PROPOFOL 10 MG/ML 20 ML VIAL IV ONE (16:34)
--- NOTE | 2024-10-13 16:44 | P.PN ---
Progress Note - Text Progress Note Date: 10/13/24 Patient evaluated again today the right hand exam has demonstrated mild extension of the dusky appearance of the dorsal soft tissues. There is no further drainage from the wound there is no extent of the wound or signs of infections proximally into the hand as well there still is no signs of infection involving the flexor tendon sheath. Patient has baseline tenderness to palpation along the dorsum of the index finger he has intact motion at all of the joints however this is still limited by pain. The left hand middle finger wound continues to be well-appearing there is no new worsening of the erythema or spread of erythema there is no area of fluctuance appreciated. She continues to have full motion of that digit. At this time we will proceed with the planned irrigation debridement of the right index finger, with possible allograft placement, with possible wound VAC placement. I did discuss again with the patient and the family that this may require multiple trips to the operating room in order to ensure adequate control of his infection
[2024-10-13] MEDS: LIDOCAINE 1% INJ 10MG/ML (20 ML MDV) SQ ONE ×2 (17:01→17:24)
--- NOTE | 2024-10-13 20:00 | P.OP ---
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 Postoperative Diagnosis: Same Procedure(s) Performed: Irrigation and debridement of right index finger Anesthesia: ANAID Surgeon: Win Wells Estimated Blood Loss (ml): 5 Pathology: other (Right index finger cultures sent) Condition: stable Disposition: PACU Indications for Procedure: Chronic right index finger wound with associated progressive infection despite IV antibiotics along with significant devitalized tissue to the dorsal aspect of the index finger Operative Findings: Chronic wound with necrotic tissue primarily to the dorsal aspect of the proximal phalanx however this did extend with a blister type formation to the dorsal aspect of the digit along the PIP joint extending into the proximal aspect of the middle phalanx. After debridement the infection was determined to be very superficial and did not involve any tendinous or bony structures the wound was able to be debrided back to clean healthy bleeding tissue and afterwards there was no exposed bone or tendinous structures Description of Procedure: The patient was placed supine on a stretcher as well as with an armboard for the right hand and all anesthesia was administered per the anesthesia team a well- padded tourniquet was applied to the right upper extremity, right hand was prepped and draped in the normal standard fashion a Betadine prep was utilized after draping a timeout was again performed to again confirm the correct patient and operative site which in this case was the right index finger distal aspect of the extent of the wound where there was notable fluid collection consistent with a infected blister was unroofed and cultures were immediately taken after this sharp debridement utilizing scalpel, scissors, and curettes was utilized to debride the superficial skin and soft tissue. this Was done until clean wound edges were obtained and healthy bleeding tissue was identified. Overall the infection was noted to be fairly superficial and did not involve any tendinous or bony structures inclusion of the debridement there was no exposed tendon or bone in the wound bed. After satisfactory debridement the tourniquet was deflated to allow for inspection of the vascularity to the wound bed and found to be diffuse punctate bleeding throughout the soft tissues. Non adhesive dressings were applied directly to the wound as well as sterile gauze and soft padding as well as an Domingo bandage. Patient tolerated the procedure well and was transferred to the recovery area in stable condition
[2024-10-14 04:34] LABS: African American GFR (CKD) 58 (>60 ml/min/1.73 sqM); Anion Gap 9 mmol/L; Blood Urea Nitrogen 22 mg/dL (9-20); Calcium 8.2 mg/dL (8.4-10.2); Carbon Dioxide 19 mmol/L (22-30); Chloride 109 mmol/L (98-107); Glucose 158 mg/dL (74-99); Non-African American GFR(CKD) 50 (>60 ml/min/1.73 sqM); Potassium 4.6 mmol/L (3.5-5.1); Sodium 137 mmol/L (137-145)
[2024-10-14 09:49] LABS: Basophils # (A) 0.02 X 10*3/uL (0.00-0.10); Basophils % (A) 0.3 %; Eosinophils # (A) 0.07 X 10*3/uL (0.04-0.35); Eosinophils % (A) 1.2 %; HCT 32.3 % (39.6-50.0); HGB 10.1 g/dL (13.0-17.0); Lymphocytes # (A) 0.46 X 10*3/uL (0.90-5.00); Lymphocytes % (A) 7.9 %; MCH 30.7 pg (27.0-32.0); MCHC 31.3 g/dL (32.0-37.0); MCV 98.2 FL (80.0-97.0); Mean Platelet Volume 9.6 FL (9.5-12.2); Monocytes # (A) 0.27 X 10*3/uL (0.20-1.00); Monocytes % (A) 4.6 %; NRBC Per 100 WBC 0 X 10*3/uL (0.00-0.01); Neutrophils # (A) 5.01 X 10*3/uL (1.80-7.70); Neutrophils % (A) 85.7 %; Platelet Count 271 X 10*3/uL (140-440); RBC 3.29 X 10*6/uL (4.40-5.60); RDW 13.6 % (11.5-14.5); WBC 5.85 X 10*3/uL (4.50-10.00)
--- NOTE | 2024-10-14 11:39 | P.PN ---
Subjective Progress Note Date: 10/14/24 Principal diagnosis: 84-year-old male with hyperlipidemia, hypertension, nephrolithiasis, prostate cancer (last radiation therapy was about a year ago) presented to the emergency department for bilateral finger infections. itals on admission temperature 97.9, pulse rate 63, respiratory rate 16, blood pressure 133/70, O2 sat 99% on room air Bilateral x-ray of the hand showed soft tissue swelling of the right index finger. No underlying bony erosion to suggest contiguous osteomyelitis. 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 No acute fracture seen. Labs on admission show WBC 6.5, hemoglobin 11.6, hematocrit 36, platelet 333, sodium 139, potassium 4.3, chloride 105, carbon dioxide 23, BUN 20, creatinine 1.53, glucose 103, C-reactive protein 5.5 Patient started on IV vancomycin, IV cefepime. Hand surgery consulted, pending recommendations. ID also following. Right hand MRI did not show any osteomyelitis. Right hand MRI had revealed subcutaneous soft tissue swelling extending to the dorsal aspect of the third finger. Patient seen and examined. He underwent an I&D of his right index finger yesterday. I&D had revealed chronic wound with necrotic tissue. The infection was noted to be very superficial and did not involve any tendinous or bony structures. Objective - Vital Signs Vital signs: Vital Signs Temp 97.5 F L 10/14/24 07:10 Pulse 60 10/14/24 07:10 Resp 15 10/14/24 07:10 BP 94/55 10/14/24 07:10 Pulse Ox 97 10/14/24 07:10 FiO2 Intake & Output 10/13/24 10/14/24 10/14/24 18:59 06:59 18:59 Intake Total 250 240 Output Total 110 550 Balance 140 -550 240 Weight 84.822 kg Intake: IV 250 Oral 240 Output: Urine 110 550 Estimated Blood Loss 0 Other: Voiding Method Toilet Toilet Urinal Urinal - Exam General: Nontoxic, no distress, appears at stated age Derm: Warm, dry, right index finger is currently wrapped in dressing Head: Atraumatic, normocephalic, symmetric Eyes: EOMI, no lid lag, anicteric sclera Mouth: No lip lesion, mucus membranes moist Cardiovascular: S1S2 reg, no murmur Lungs: CTA bilateral, no rhonchi, no rales, no accessory muscle use Abdominal: Soft, nontender to palpation, no guarding, no appreciable organomegaly Ext: No gross muscle atrophy, no edema, no contractures Neuro: Renal extremity spontaneously Psych: Alert, oriented, appropriate affect - Labs CBC & Chem 7: 10/14/24 04:09 10/14/24 04:09 Labs: Abnormal Lab Results - Last 24 Hours (Table) 10/14/24 10/14/24 Range/Units 04:09 04:09 RBC 3.29 L (4.40-5.60) X 10*6/uL Hgb 10.1 L (13.0-17.0) g/dL Hct 32.3 L (39.6-50.0) % MCV 98.2 H (80.0-97.0) FL MCHC 31.3 L (32.0-37.0) g/dL Lymphocytes # 0.46 L (0.90-5.00) X 10*3/uL Chloride 109 H (98-107) mmol/L Carbon Dioxide 19 L (22-30) mmol/L BUN 22 H (9-20) mg/dL Creatinine 1.32 H (0.66-1.25) mg/dL Glucose 158 H (74-99) mg/dL Calcium 8.2 L (8.4-10.2) mg/dL Microbiology - Last 24 Hours (Table) 10/11/24 20:43 Gram Stain - Final Finger - Right Second Wound Culture - Final Assessment and Plan Assessment: Bilateral hand cellulitis, involving right index finger and left middle finger Mild JAVIER, nonoliguric -Continue pharmacy to dose vancomycin and IV cefepime Status post right first finger I&D on October 13 Appreciate infectious disease recommendations regarding final antibiotic duration and course Normocytic anemia -stable Mild non-anion gap metabolic acidosis -probably in relation to javier, stable Chronic: BPH - continue home tamsulosin 0.4 mg hs Hypertension- continue metoprolol tartrate 50 mg bid DVT ppx: Lovenox Code status: Full code Anticipated discharge place: Home Anticipated discharge time: Pending clinical course, awaiting infectious disease input guarding antibiotics and orthopedic surgery if any further surgical intervention is warranted
--- NOTE | 2024-10-14 12:30 | P.PN ---
Progress Note - Text Progress Note Date: 10/14/24 Patient seen and examined this morning, doing well overall, has minimal pain to the finger, denies any issues with his dressings overnight. discussed the operative findings with him and that overall his infection was of a superficial nature, given his significant wound healing to his left middle finger i am hopeful he will be able to heal his index finger in a similar manner without the need for further grafting or wound vac devices. on exam of the right hand his dressings are clean and intact, he has intact sensation to the exposed tip of the index finger and brick capillary refill, no pain along the volar aspect of the digit with gentle motion of the digit on the right hand his middle finger dorsal wound continues to improve, he has only mild erythema, no signs of abscess formation, he is non tender to the proximal phalanx, he has full motion and sensation to the digit and brisk capillary refill Plan We will follow up intra-op wound cultures to assess need to adjust antibiotics NWB to right hand to allow for soft tissue rest will perform a dressing change tomorrow and inspect the wound will place a consult for wound care for inpatient assistance with dressing changes and to aid in coordinating care outpatient for dressing changes Continue Abx, appreciate ID recommendations final discharge pending OR cultures and clinical course
--- NOTE | 2024-10-14 22:46 | P.PN ---
Subjective Progress Note Date: 10/14/24 Principal diagnosis: Reason for follow-up is bilateral hand finger infection Patient is a 84-year-old male with a past medical history significant for hypertension hyperlipidemia kidney stone prostate cancer presenting to the hospital for evaluation of bilateral hand finger infection which is more marked on the right index finger MRI with suspicion of possible tenosynovitis.Patient did have right index finger abscess drainage on 10/13/2024 operative report did not mention any extension down to the fascia or along On today's evaluation 10/14/2024, patient did not have any fever and denies any chills, patient is breathing comfortably on room air, patient with no chest pain or cough patient did not have any abdominal pain nausea vomiting or any loose stools, pain to the right index finger is currently controlled. Patient white count is 5.85 creat is 1.32 Vanco trough is 14.9 cultures are currently pending Objective - Vital Signs Vital signs: Vital Signs Temp 97.5 F L 10/14/24 07:10 Pulse 60 10/14/24 07:10 Resp 15 10/14/24 07:10 BP 94/55 10/14/24 07:10 Pulse Ox 97 10/14/24 07:10 FiO2 Intake & Output 10/13/24 10/14/24 10/14/24 18:59 06:59 18:59 Intake Total 250 240 Output Total 110 550 Balance 140 -550 240 Weight 84.822 kg Intake: IV 250 Oral 240 Output: Urine 110 550 Estimated Blood Loss 0 Other: Voiding Method Toilet Toilet Urinal Urinal - Exam GENERAL DESCRIPTION: An elderly male up in bed in no distress RESPIRATORY SYSTEM: Unlabored breathing , decreased breath sounds at bases HEART: S1 S2 regular rate and rhythm , ABDOMEN: Soft , no tenderness EXTREMITIES: Right index pain is currently dressed no drainage left middle finger dorsum did have more dried up wound - Labs CBC & Chem 7: 10/14/24 04:09 10/14/24 04:09 Labs: Abnormal Lab Results - Last 24 Hours (Table) 10/14/24 10/14/24 Range/Units 04:09 04:09 RBC 3.29 L (4.40-5.60) X 10*6/uL Hgb 10.1 L (13.0-17.0) g/dL Hct 32.3 L (39.6-50.0) % MCV 98.2 H (80.0-97.0) FL MCHC 31.3 L (32.0-37.0) g/dL Lymphocytes # 0.46 L (0.90-5.00) X 10*3/uL Chloride 109 H (98-107) mmol/L Carbon Dioxide 19 L (22-30) mmol/L BUN 22 H (9-20) mg/dL Creatinine 1.32 H (0.66-1.25) mg/dL Glucose 158 H (74-99) mg/dL Calcium 8.2 L (8.4-10.2) mg/dL Microbiology - Last 24 Hours (Table) 10/11/24 20:43 Anaerobic Culture - Preliminary Finger - Right Second 10/11/24 20:43 Gram Stain - Final Finger - Right Second Wound Culture - Final Assessment and Plan (1) Cellulitis of left middle finger Current Visit: Yes Status: Acute Code(s): L03.012 - CELLULITIS OF LEFT FINGER SNOMED Code(s): 71052901704339 (2) Cellulitis of right index finger Current Visit: Yes Status: Acute Code(s): L03.011 - CELLULITIS OF RIGHT FINGER SNOMED Code(s): 71124981649259 Plan: 1patient presented to hospital with pain swelling redness to the right index and left middle finger right side he started with a silver and left middle finger with dog scratch with concerning for early tenosynovitis on the right side and possible abscess 2-patient is status post surgical drainage and deep culture of the right index finger by hand surgery, cultures currently pending 3- patient to continue with vancomycin and cefepime while waiting for the culture to finalize to determine discharge antibiotics Family the bedside questions answered Dictation was produced using [employer] dictation software. please excuse any grammatical, word or spelling errors. Time with Patient: Less than 30
[2024-10-15 09:49] LABS: Basophils # (A) 0.04 X 10*3/uL (0.00-0.10); Basophils % (A) 0.7 %; Eosinophils % (A) 3.7 %; HCT 31.5 % (39.6-50.0); HGB 10.1 g/dL (13.0-17.0); Lymphocytes # (A) 0.56 X 10*3/uL (0.90-5.00); Lymphocytes % (A) 10.4 %; MCH 30.1 pg (27.0-32.0); MCHC 32.1 g/dL (32.0-37.0); MCV 93.8 FL (80.0-97.0); Mean Platelet Volume 9.2 FL (9.5-12.2); Monocytes # (A) 0.34 X 10*3/uL (0.20-1.00); Monocytes % (A) 6.3 %; NRBC Per 100 WBC 0 X 10*3/uL (0.00-0.01); Neutrophils # (A) 4.23 X 10*3/uL (1.80-7.70); Neutrophils % (A) 78.5 %; Platelet Count 250 X 10*3/uL (140-440); RBC 3.36 X 10*6/uL (4.40-5.60); RDW 13.9 % (11.5-14.5); WBC 5.39 X 10*3/uL (4.50-10.00)
--- NOTE | 2024-10-15 10:43 | P.PN ---
Progress Note - Text Progress Note Date: 10/15/24 Patient evaluated today, he had some moderate pain to the right index finger overnight but otherwise has been doing well. Denies any fevers or chills. Dressings were removed today the right index finger wound is well-appearing and continues to exhibit healthy viable tissue to the wound bed. The small area of wound to the dorsal aspect of the middle finger proximal phalanx is also well- appearing and healing well there is no sign of proximal extent of infection or involvement of the flexor tendon sheath to either digit. Patient has expected tenderness to the dorsal aspect of the index and middle fingers he has intact though expected limited motion of the index finger secondary to pain. Patient has intact sensation and brisk capillary refill to the index and long fingers of the right hand as well as the rest of the right hand His left hand wound on the dorsal aspect of the middle finger continues to be well-appearing and continues to improve in its overall appearance there is again no concern for any spread of infection to that digit, he continues to have full range of motion of the digit and minimal tenderness at the site of his previous and now healing wound. Will continue to follow intraoperative cultures to determine if any antibiotic changes need to be made For now we will continue dressing changes every other day Wound care has been consulted to coordinate wound care efforts in the outpatient setting if family is not comfortable performing dressing changes on their own Appreciate infectious disease input for short assistance with antibiotic regimen. Given the well appearing wound and no evidence of further spread of infection I do not anticipate the patient would need any long-term IV antibiotics
[2024-10-15 10:51] LABS: BUN/Creat Ratio 13.64 Ratio (12.00-20.00); Blood Urea Nitrogen 19.1 mg/dL (9.0-27.0); Calcium 8.2 mg/dL (8.7-10.3); Carbon Dioxide 21.8 mmol/L (21.6-31.8); Chloride 111 mmol/L (96-109); Glucose 99 mg/dL (70-110); Potassium 4.6 mmol/L (3.5-5.5); Sodium 141 mmol/L (135-145)
--- NOTE | 2024-10-15 12:43 | P.PN ---
Subjective Progress Note Date: 10/15/24 Principal diagnosis: 84-year-old male with hyperlipidemia, hypertension, nephrolithiasis, prostate cancer (last radiation therapy was about a year ago) presented to the emergency department for bilateral finger infections. itals on admission temperature 97.9, pulse rate 63, respiratory rate 16, blood pressure 133/70, O2 sat 99% on room air Bilateral x-ray of the hand showed soft tissue swelling of the right index finger. No underlying bony erosion to suggest contiguous osteomyelitis. 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 No acute fracture seen. Labs on admission show WBC 6.5, hemoglobin 11.6, hematocrit 36, platelet 333, sodium 139, potassium 4.3, chloride 105, carbon dioxide 23, BUN 20, creatinine 1.53, glucose 103, C-reactive protein 5.5 Patient started on IV vancomycin, IV cefepime. Hand surgery consulted, pending recommendations. ID also following. Right hand MRI did not show any osteomyelitis. Right hand MRI had revealed subcutaneous soft tissue swelling extending to the dorsal aspect of the third finger. He had underwent I&D on October 14 Patient seen and examined. He denies any complaints at this time. No nausea vomiting reported Objective - Vital Signs Vital signs: Vital Signs Temp 97.3 F L 10/15/24 06:55 Pulse 51 L 10/15/24 06:55 Resp 18 10/15/24 06:55 BP 122/69 10/15/24 06:55 Pulse Ox 96 10/15/24 06:55 FiO2 Intake & Output 10/14/24 10/15/24 10/15/24 18:59 06:59 18:59 Intake Total 720 240 Output Total 525 Balance 720 -525 240 Intake: Oral 720 240 Output: Urine 525 Other: Voiding Method Toilet Toilet Toilet Urinal Urinal Urinal # Voids 3 - Exam General: Nontoxic, no distress, appears at stated age Derm: Warm, dry, right index finger is currently wrapped in dressing Head: Atraumatic, normocephalic, symmetric Eyes: EOMI, no lid lag, anicteric sclera Mouth: No lip lesion, mucus membranes moist Cardiovascular: S1S2 reg, no murmur Lungs: CTA bilateral, no rhonchi, no rales, no accessory muscle use Abdominal: Soft, nontender to palpation, no guarding, no appreciable organomegaly Ext: Right finger is currently wrapped in a dressing Neuro: Moving all extremity spontaneously Psych: Alert, oriented, appropriate affect - Labs CBC & Chem 7: 10/15/24 06:28 10/15/24 06:28 Labs: Abnormal Lab Results - Last 24 Hours (Table) 10/15/24 10/15/24 Range/Units 06:28 06:28 RBC 3.36 L (4.40-5.60) X 10*6/uL Hgb 10.1 L (13.0-17.0) g/dL Hct 31.5 L (39.6-50.0) % MPV 9.2 L (9.5-12.2) FL Lymphocytes # 0.56 L (0.90-5.00) X 10*3/uL Chloride 111 H (96-109) mmol/L Est GFR (CKD-EPI) 50 L (>=60) Calcium 8.2 L (8.7-10.3) mg/dL Microbiology - Last 24 Hours (Table) 10/13/24 17:01 Gram Stain - Preliminary Finger - Right First Wound Culture - Preliminary 10/13/24 17:00 Gram Stain - Preliminary Finger - Right First Wound Culture - Preliminary 10/11/24 20:43 Anaerobic Culture - Preliminary Finger - Right Second 10/11/24 20:43 Gram Stain - Final Finger - Right Second Wound Culture - Final Assessment and Plan Assessment: Bilateral hand cellulitis, involving right index finger and left middle finger Mild JAVIER, nonoliguric -Continue pharmacy to dose vancomycin and IV cefepime Status post right first finger I&D on October 13 Appreciate factious disease recommendations on final antibiotic duration course, awaiting cultures from October 13 Normocytic anemia -stable Mild non-anion gap metabolic acidosis -probably in relation to javier, stable Chronic: BPH - continue home tamsulosin 0.4 mg hs Hypertension- continue metoprolol tartrate 50 mg bid DVT ppx: Lovenox Code status: Full code Anticipated discharge place: Home Anticipated discharge time: Pending clinical course, awaiting final input from infectious disease regarding antibiotics
[2024-10-15] MEDS: VANCOMYCIN TROUGH DUE 1 EACH MISC MISCELLANE ONE (13:22)
--- NOTE | 2024-10-15 13:39 | P.PN ---
Subjective Progress Note Date: 10/15/24 Principal diagnosis: Reason for follow-up is bilateral hand finger infection Patient is a 84-year-old male with a past medical history significant for hypertension hyperlipidemia kidney stone prostate cancer presenting to the hospital for evaluation of bilateral hand finger infection which is more marked on the right index finger MRI with suspicion of possible tenosynovitis.Patient did have right index finger abscess drainage on 10/13/2024 operative report did not mention any extension down to the fascia or along On today's evaluation that is 10/15/2024, Patient is afebrile patient is currently on room air and denies having any shortness of breath, the patient d enies any chest pain or cough, the patient denies any nausea vomiting did not have any abdominal pain and no diarrhea, pain to the right index finger is currently controlled. Patient white count is 5.39, creat is 1.4 local cultures currently pending Objective - Vital Signs Vital signs: Vital Signs Temp 97.3 F L 10/15/24 06:55 Pulse 51 L 10/15/24 06:55 Resp 18 10/15/24 06:55 BP 122/69 10/15/24 06:55 Pulse Ox 96 10/15/24 06:55 FiO2 Intake & Output 10/14/24 10/15/24 10/15/24 18:59 06:59 18:59 Intake Total 720 240 Output Total 525 Balance 720 -525 240 Intake: Oral 720 240 Output: Urine 525 Other: Voiding Method Toilet Toilet Toilet Urinal Urinal Urinal # Voids 3 - Exam GENERAL DESCRIPTION: An elderly male up in bed in no distress RESPIRATORY SYSTEM: Unlabored breathing , decreased breath sounds at bases HEART: S1 S2 regular rate and rhythm , ABDOMEN: Soft , no tenderness EXTREMITIES: Right index pain is currently dressed review the picture taken by the daughter overall swelling has improved - Labs CBC & Chem 7: 10/15/24 06:28 10/15/24 06:28 Labs: Abnormal Lab Results - Last 24 Hours (Table) 10/15/24 10/15/24 Range/Units 06:28 06:28 RBC 3.36 L (4.40-5.60) X 10*6/uL Hgb 10.1 L (13.0-17.0) g/dL Hct 31.5 L (39.6-50.0) % MPV 9.2 L (9.5-12.2) FL Lymphocytes # 0.56 L (0.90-5.00) X 10*3/uL Chloride 111 H (96-109) mmol/L Est GFR (CKD-EPI) 50 L (>=60) Calcium 8.2 L (8.7-10.3) mg/dL Microbiology - Last 24 Hours (Table) 10/13/24 17:01 Gram Stain - Preliminary Finger - Right First Wound Culture - Preliminary 10/13/24 17:00 Gram Stain - Preliminary Finger - Right First Wound Culture - Preliminary 10/11/24 20:43 Anaerobic Culture - Preliminary Finger - Right Second 10/11/24 20:43 Gram Stain - Final Finger - Right Second Wound Culture - Final Assessment and Plan (1) Cellulitis of left middle finger Current Visit: Yes Status: Acute Code(s): L03.012 - CELLULITIS OF LEFT FINGER SNOMED Code(s): 95666826621830 (2) Cellulitis of right index finger Current Visit: Yes Status: Acute Code(s): L03.011 - CELLULITIS OF RIGHT FINGER SNOMED Code(s): 16687465058693 Plan: 1patient presented to hospital with pain swelling redness to the right index and left middle finger right side he started with a silver and left middle finger with dog scratch with concerning for early tenosynovitis on the right side and possible abscess 2-patient is status post surgical drainage and deep culture of the right index finger by hand surgery, cultures currently pending 3- patient has shown clinical improvement, to continue with vancomycin and cefepime while waiting for the culture to finalize to determine discharge antibiotics Family the bedside multiple questions answered Dictation was produced using [employer] dictation software. please excuse any grammatical, word or spelling errors. Time with Patient: Less than 30
[2024-10-16] MEDS: polyethylene glycoL 3350 17 GM POWD.PACK PO STA (05:04)
[2024-10-16 05:44] LABS: African American GFR (CKD) 51 (>60 ml/min/1.73 sqM); Non-African American GFR(CKD) 44 (>60 ml/min/1.73 sqM)
[2024-10-16] MEDS: VANCOMYCIN 1,250 MG in SODIUM CHLORIDE 0.9% 250 ML IVPB SCH (12:46)
[2024-10-16 14:37] VITALS: BP 119/50; RESP 16; TEMP 97.6
[2024-10-16 15:01] VITALS: PULSE 58
--- NOTE | 2024-10-16 16:11 | CDI ---
An excisional debridement was performed for the right index finger. Documentation Clarification Form Date: 10/16/2024 04:03:58 PM From: Dorothy Canales RN, CCDS Phone: [phone] Admit Date: 10/12/2024 07:56:00 AM Patient Name: Carlos Domingo Visit Number: [id number] Discharge Date: ATTENTION: The Clinical Documentation Specialists (CDI) and [facility] Coding Staff appreciate your assistance in clarifying documentation. Please respond to the clarification below the line at the bottom and electronically sign. The CDI & [facility] Coding staff will review the response and follow-up if needed. Please note: Queries are made part of the Legal Health Record. If you have any questions, please contact the author of this message via ITS. Doctor. Win Bernardo debridement is documented on 10/13/24. Unfortunately, some required elements have not been documented. Additional clarification regarding the procedure is requested. History/Risk Factors: Hyperlipidemia, Hypertension, Prostate Cancer Clinical Indicators: Chronic right index finger wound with associated cellulitis and necrotic tissue Treatment: Irrigation and debridement of right index finger Cefepime HCL 2 GM IVPB Q 12 HRS Vancomycin HCl 1,225 MG IVPB Q 24 HRS (PTD) Please clarify the procedure performed: [ ] Excisional debridement (the removal of necrotic, devitalized tissue or slough by means of cutting away of tissue) Instrument: scalpel, scissors and curettes Nature of the tissue removed superficial skin and soft tissue, this was done until clean wound edges were obtained, and healthy bleeding tissue was identified. Appearance of the wound: no exposed tendon or bone in the wound bed. Depth of debridement: Wound dimensions for the right index finger following debridement measured 6cm x 3.5cm [ ] Non-excisional debridement (the removal of necrotic, devitalized tissue or slough by means of flushing, brushing, or washing. (Irrigation) Instrument: Nature of the tissue removed Appearance of the wound Depth of debridement [ ] Other; please specify Dr. Wells Five elements required for accurate and compliant documentation of a debridement: -Technique used (e.g., excisional, excised, cutting, brushing, jet lavage etc.) -Instrument(s) used (e.g., scalpel, curette, etc.) -Nature of the tissue removed (e.g., necrotic, devitalized tissues, non-viable tissue, etc.) -Appearance and size of the wound (e.g., down to fresh bleeding tissue, 7cm x 10cm, etc.) -Depth of the debridement* (e.g., skin, subcutaneous tissue, fascia, muscle, bone, etc.) (Template Last Revised: June 2024) MTDD
--- NOTE | 2024-10-16 16:41 | P.PN ---
Progress Note - Text Progress Note Date: 10/16/24 Patient evaluated today, overall continues to do well, pain is adequately controlled, denies any new fevers/chills or issues to the bilateral hands. right hand dressings are clean and intact, no interval change in sensation or vascular exam to the hand left hand middle finger wound continues to be well appearing without evidence of recurrence or worsening of infection. Patient will have wound care set up for outpatient home visits, details have been provided to the team Appreciate ID recommendations for outpatient antibiotic coverage, continue to take as prescribed, OR aerobic wound cultures have not grown bacteria and have now finalized Avoid strenuous use of the right hand but may perform digital ROM within constraints of the dressings left hand may use as tolerated Patient has follow up scheduled for me for this wednesday patient is stable for DC from hand surgery standpoint
--- NOTE | 2024-10-16 16:50 | P.DS ---
Providers Date of admission: 10/12/24 07:56 Expected date of discharge: 10/16/24 Attending physician: Storm Barth Consults: 10/09/24 18:20 Consult Physician Urgent Consulting Provider: Jennifer Whatley Consult Reason/Comments: cellulitis right 2nd digit Do you want consulting provider notified?: Yes 10/11/24 12:28 Consult Physician Routine Consulting Provider: Justin Gong Consult Reason/Comments: bilateral hand cellulitis Do you want consulting provider notified?: Yes Primary care physician: [facility] Course: 84-year-old male with hyperlipidemia, hypertension, nephrolithiasis, prostate cancer (last radiation therapy was about a year ago) presented to the emergency department for bilateral finger infections. Patient reports that he got a splinter in the his right index finger about 3 weeks ago. After he removed the splinter, he noticed that the wound has expanded in size over the past 2 to 3 weeks. The pain in his right index finger has also gotten worse over the past few days which made him to come to the ED for evaluation. Came in with a sharp stabbing, burning sensation surrounding the wound on his right index finger with the severity of 6 out of 10. He also noticed bleeding and drainage oozing out of the wound. Patient reports he never had anything like this before. Denies any history of diabetes. In addition patient reports a wound on his left middle finger that he got when his dog scratched him about a month ago before Thanksgiving. He also noticed this wound has gotten bigger over time. However denies any drainage or bleeding from the wound on his left middle finger. Patient has tried using sodium peroxide solution thus far with no improvement. Patient denies any numbness, tingling sensation around his fingertips. He denies chest pain, shortness of breath, fever, chills, nausea, vomiting, diarrhea, constipation, lower extremity tingling or numbness, hematochezia/melena. ED documentation reviewed. In the ED patient was treated with cefepime 2 g IV x 1. Vitals on admission temperature 97.9, pulse rate 63, respiratory rate 16, blood pressure 133/70, O2 sat 99% on room air. Bilateral x-ray of the hand showed soft tissue swelling of the right index finger. No underlying bony erosion to suggest contiguous osteomyelitis. 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 No acute fracture seen. Labs on admission show WBC 6.5, hemoglobin 11.6, hematocrit 36, platelet 333, sodium 139, potassium 4.3, chloride 105, carbon dioxide 23, BUN 20, creatinine 1.53, glucose 103, C-reactive protein 5.5. Patient admitted, started on IV vancomycin, IV cefepime. Hand surgery consulted, had right hand MRI which did not show any osteomyelitis. Right hand MRI had revealed subcutaneous soft tissue swelling extending to the dorsal aspect of the third finger. He had underwent I&D on October 14 by hand surgery. Wound cultures negative. He is currently doing well. Instructed on dressing changes. ID was also following pateint. D/w Dr Gong on discharge. Will treat with Augmentin for 10 more days. Seen and examined on the day of discharge 10/16/2024. Time for discharge 36 min. Plan - Discharge Summary Discharge Rx Participant: No New Discharge Prescriptions: New Amoxic-Pot Clav 875-125Mg [Augmentin 875-125] 1 tab PO BID 10 Days #20 tab Continue Metoprolol Tartrate [Lopressor] 50 mg PO BID Tamsulosin HCl [Flomax] 0.4 mg PO HS Acetaminophen Tab [Tylenol] 325 mg PO HS Discharge Medication List Metoprolol Tartrate [Lopressor] 50 mg PO BID 12/30/14 [History] Acetaminophen Tab [Tylenol] 325 mg PO HS 10/09/24 [History] Tamsulosin HCl [Flomax] 0.4 mg PO HS 10/09/24 [History] Amoxic-Pot Clav 875-125Mg [Augmentin 875-125] 1 tab PO BID 10 Days #20 tab 10/16/24 [Rx] Follow up Appointment(s)/Referral(s): [facility] [NON-STAFF] - As Needed Chava Killian DO [Primary Care Provider] - 1-2 days Justin Gong MD [STAFF PHYSICIAN] - 1 Week Activity/Diet/Wound Care/Special Instructions: Bacitracin/neosporin to wound bed then non adherent dressing with kerlix over top keep dressing dry change every 3 days keep appointment scheduled for wednesday with Dr Wells.
--- NOTE | 2024-10-17 12:51 | P.PN ---
Subjective Progress Note Date: 10/16/24 Principal diagnosis: Reason for follow-up is bilateral hand finger infection Patient is a 84-year-old male with a past medical history significant for hypertension hyperlipidemia kidney stone prostate cancer presenting to the hospital for evaluation of bilateral hand finger infection which is more marked on the right index finger MRI with suspicion of possible tenosynovitis.Patient did have right index finger abscess drainage on 10/13/2024 operative report did not mention any extension down to the fascia or along On today's evaluation that is 10/16/2023, patient has been afebrile, patient is breathing comfortably and is currently on room air, patient denies having any significant cough no chest pain, patient denies nausea vomiting or diarrhea and no abdominal pain and denies pain to the right index finger. Patient did have a creatinine 1.46 culture has been negative Objective - Vital Signs Vital signs: Vital Signs Temp 97.7 F 10/16/24 07:00 Pulse 58 L 10/16/24 08:00 Resp 17 10/16/24 08:00 BP 125/63 10/16/24 07:00 Pulse Ox 99 10/16/24 07:00 FiO2 Intake & Output 10/15/24 10/16/24 10/16/24 18:59 06:59 18:59 Intake Total 830 Output Total 600 800 Balance 230 -800 Intake: Oral 830 Output: Urine 600 800 Other: Voiding Method Toilet Toilet Toilet Urinal Urinal Urinal - Exam GENERAL DESCRIPTION: An elderly male up in bed in no distress RESPIRATORY SYSTEM: Unlabored breathing , decreased breath sounds at bases HEART: S1 S2 regular rate and rhythm , ABDOMEN: Soft , no tenderness EXTREMITIES: Right index currently dressed no drainage on the dressing - Labs CBC & Chem 7: 10/15/24 06:28 10/16/24 04:55 Labs: Abnormal Lab Results - Last 24 Hours (Table) 10/16/24 Range/Units 04:55 Creatinine 1.46 H (0.66-1.25) mg/dL Microbiology - Last 24 Hours (Table) 10/13/24 17:00 Gram Stain - Final Finger - Right First Wound Culture - Final 10/13/24 17:01 Gram Stain - Final Finger - Right First Wound Culture - Final Assessment and Plan (1) Cellulitis of left middle finger Status: Acute Code(s): L03.012 - CELLULITIS OF LEFT FINGER SNOMED Code(s): 86028538475288 (2) Cellulitis of right index finger Status: Acute Code(s): L03.011 - CELLULITIS OF RIGHT FINGER SNOMED Code(s): 57633471105068 Plan: 1patient presented to hospital with pain swelling redness to the right index and left middle finger right side he started with a silver and left middle finger with dog scratch with concerning for early tenosynovitis on the right side and possible abscess 2-patient is status post surgical drainage and deep culture of the right index finger by hand surgery. 3- patient has shown clinical improvement, culture has been negative for any resistant pathogen we will consider short course of oral Augmentin on discharge prescription sent to the pharmacy Family the bedside multiple questions answered Dictation was produced using [employer] dictation software. please excuse any grammatical, word or spelling errors. Time with Patient: Less than 30
--- NOTE | 2024-10-23 11:01 | CDI ---
This procedure was an excisional debridement Documentation Clarification Form Date: 10/16/2024 04:03:00 PM From: Dorothy Canales RN, CCDS Phone: [phone] Admit Date: 10/12/2024 07:56:00 AM Patient Name: Carlos Domingo Visit Number: [id number] Discharge Date: 10/16/2024 05:40:00 PM ATTENTION: The Clinical Documentation Specialists (CDI) and [facility] Coding Staff appreciate your assistance in clarifying documentation. Please respond to the clarification below the line at the bottom and electronically sign. The CDI & [facility] Coding staff will review the response and follow-up if needed. Please note: Queries are made part of the Legal Health Record. If you have any questions, please contact the author of this message via ITS. Doctor. Win Bernardo debridement is documented on 10/13/24. Unfortunately, some required elements have not been documented. Additional clarification regarding the procedure is requested. 10/16 Op note: ..sharp debridement History/Risk Factors: Hyperlipidemia, Hypertension, Prostate Cancer Clinical Indicators: Chronic right index finger wound with associated cellulitis and necrotic tissue Treatment: Irrigation and debridement of right index finger Cefepime HCL 2 GM IVPB Q 12 HRS Vancomycin HCl 1,225 MG IVPB Q 24 HRS (PTD) Please clarify the procedure performed: [ ] Excisional debridement (the removal of necrotic, devitalized tissue or slough by means of cutting away of tissue) Instrument: scalpel, scissors and curettes Nature of the tissue removed superficial skin and soft tissue, this was done until clean wound edges were obtained, and healthy bleeding tissue was identified. Appearance of the wound: no exposed tendon or bone in the wound bed. Depth of debridement: Wound dimensions for the right index finger following debridement measured 6cm x 3.5cm [ ] Non-excisional debridement (the removal of necrotic, devitalized tissue or slough by means of flushing, brushing, or washing. (Irrigation) Instrument: Nature of the tissue removed Appearance of the wound Depth of debridement [ ] Other; please specify Dr. Priscilla Five elements required for accurate and compliant documentation of a debridement: -Technique used (e.g., excisional, excised, cutting, brushing, jet lavage etc.) -Instrument(s) used (e.g., scalpel, curette, etc.) -Nature of the tissue removed (e.g., necrotic, devitalized tissues, non-viable tissue, etc.) -Appearance and size of the wound (e.g., down to fresh bleeding tissue, 7cm x 10cm, etc.) -Depth of the debridement* (e.g., skin, subcutaneous tissue, fascia, muscle, bone, etc.) (Template Last Revised: June 2024) MTDD
--- NOTE | 2024-10-26 15:01 | CDI ---
Documentation Clarification Form Date: 10/16/2024 04:03:00 PM From: Dorothy Canales Phone: [phone] Admit Date: 10/12/2024 07:56:00 AM Patient Name: Carlos Domingo Visit Number: [id number] Discharge Date: 10/16/2024 05:40:00 PM ATTENTION: The Clinical Documentation Specialists (CDI) and [facility] Coding Staff appreciate your assistance in clarifying documentation. Please respond to the clarification below the line at the bottom and electronically sign. The CDI & [facility] Coding staff will review the response and follow-up if needed. Please note: Queries are made part of the Legal Health Record. If you have any questions, please contact the author of this message via ITS. Doctor/Provider: Win Bernardo debridement is documented on 10/13/24. Unfortunately, some required elements have not been documented. Additional clarification regarding the procedure is requested. 10/16 Op note: ..sharp debridement History/Risk Factors: Hyperlipidemia, Hypertension, Prostate Cancer Clinical Indicators: Chronic right index finger wound with associated cellulitis and necrotic tissue Treatment: Irrigation and debridement of right index finger Cefepime HCL 2 GM IVPB Q 12 HRS Vancomycin HCl 1,225 MG IVPB Q 24 HRS (PTD) Please clarify the procedure performed: [x ] Excisional debridement (the removal of necrotic, devitalized tissue or slough by means of cutting away of tissue) Instrument: scalpel, scissors and curettes Nature of the tissue removed superficial skin and soft tissue, this was done until clean wound edges were obtained, and healthy bleeding tissue was identified. Appearance of the wound: no exposed tendon or bone in the wound bed. Depth of debridement: Wound dimensions for the right index finger following debridement measured 6cm x 3.5cm [ ] Non-excisional debridement (the removal of necrotic, devitalized tissue or slough by means of flushing, brushing, or washing. (Irrigation) Instrument: Nature of the tissue removed Appearance of the wound Depth of debridement [ ] Other; please specify Dr. Wells Five elements required for accurate and compliant documentation of a debridement: -Technique used (e.g., excisional, excised, cutting, brushing, jet lavage etc.) -Instrument(s) used (e.g., scalpel, curette, etc.) -Nature of the tissue removed (e.g., necrotic, devitalized tissues, non-viable tissue, etc.) -Appearance and size of the wound (e.g., down to fresh bleeding tissue, 7cm x 10cm, etc.) -Depth of the debridement* (e.g., skin, subcutaneous tissue, fascia, muscle, bone, etc.) (Template Last Revised: June 2024) MTDD
== END 2024-10-16 17:40 | disposition home or self-care (01) | DRG 580 ==
LOC: EC 13:20 → 6NMEDSUR 18:22 → OBSVTOIN 10-12 07:56
PROVIDERS: ADMIT Student in an Organized Health Care Education/Training Program; ATTEND Student in an Organized Health Care Education/Training Program
PROC: 0JBJ0ZZ Excision of Right Hand Subcutaneous Tissue and Fascia, Open Approach (ICD-10-PCS; principal; 2024-10-13 07:30)
DX: L03.011 Cellulitis of right finger (principal); E87.20 Acidosis, unspecified; I10 Essential (primary) hypertension; D64.9 Anemia, unspecified; I96 Gangrene, not elsewhere classified; N17.9 Acute kidney failure, unspecified; L03.012 Cellulitis of left finger; E78.5 Hyperlipidemia, unspecified; R73.9 Hyperglycemia, unspecified; N40.0 Benign prostatic hyperplasia without lower urinary tract symptoms; Z96.652 Presence of left artificial knee joint; Z79.899 Other long term (current) drug therapy; Z87.442 Personal history of urinary calculi; Z85.46 Personal history of malignant neoplasm of prostate; W54.8XXA Other contact with dog, initial encounter
CPT/HCPCS: 36415; 80048; 80053; 80202; 82565; 83036; 83605; 85025; 85652; 86140; 87040; 87070; 87075; 87205; 93005; 96361; 96365; 96366; 96368; 96372; 96375; 96376; 99285

== ENCOUNTER → 2024-12-11 | Outpatient (CLI) | payer MEDICARE ==
--- NOTE | 2024-12-11 11:10 | XR ---
EXAMINATION TYPE: XR abdomen 2V DATE OF EXAM: 12/11/2024 11:04 AM COMPARISON: None. CLINICAL INDICATION: Male, 84 years old with history of N200,[id number],[id number] KIDNEY STONE,RUQ PAIN,HEMATU AKOSUA, TECHNIQUE: Single view of the abdomen. FINDINGS: Small bowel demonstrates no evidence for dilatation or air fluid levels. Gas and fecal material is seen in non-distended colon. No convincing evidence for pneumoperitoneum. No unusual calcifications. The lung bases are clear. The osseous structures are intact. IMPRESSION: 1. Overall nonobstructive bowel gas pattern. [facility], , 12/11/2024 11:08 AM
== END | disposition home or self-care (01) ==
LOC: RADXRYALE 10:47
PROVIDERS: ATTEND Physician Assistant Medical
DX: N20.0 Calculus of kidney (principal); Z85.46 Personal history of malignant neoplasm of prostate
CPT/HCPCS: 74019

== ENCOUNTER 2024-12-19 10:19 | Emergency (ER) | payer MEDICARE ==
[2024-12-19 10:40] VITALS: TEMP 97.4
--- NOTE | 2024-12-19 11:00 | ED ---
General Adult HPI - General Chief complaint: Urogenital Stated complaint: kidney stones Time Seen by Provider: 12/19/24 10:40 Source: patient, RN notes reviewed, old records reviewed Mode of arrival: ambulatory Limitations: no limitations - History of Present Illness Initial comments: This is an 84-year-old male with a past medical history significant for prostate cancer and history of kidney stones. Patient states since yesterday he has been having some pain in his flank on the right side and now its kind of down into his groin. Patient states he also has not been able to urinate since last night at midnight. Patient states normally he urinates about every hour to hour and a half. Patient does feel some pressure in the suprapubic region. Patient Nuys any fever chills. Patient denies any back pain or flank pain at this time but does have pain in the groin. Patient denies any nausea vomiting diarrhea. - Related Data Home Medications Medication Instructions Recorded Confirmed Metoprolol Tartrate [Lopressor] 50 mg PO BID 12/30/14 10/09/24 Acetaminophen Tab [Tylenol] 325 mg PO HS 10/09/24 10/09/24 Tamsulosin HCl [Flomax] 0.4 mg PO HS 10/09/24 10/09/24 Previous Rx's Medication Instructions Recorded Amoxic-Pot Clav 875-125Mg 1 tab PO BID 10 Days #20 tab 10/16/24 [Augmentin 875-125] Allergies Allergy/AdvReac Type Severity Reaction Status Date / Time No Known Allergies Allergy Verified 12/19/24 10:40 Review of Systems ROS Statement: Those systems with pertinent positive or pertinent negative responses have been documented in the HPI. ROS Other: All systems not noted in ROS Statement are negative. Past Medical History Past Medical History: Cancer, Hyperlipidemia, Hypertension Additional Past Medical History / Comment(s): KIDNEY STONES, GLAUCOMA, PROSTATE CA History of Any Multi-Drug Resistant Organisms: None Reported Past Surgical History: Orthopedic Surgery Additional Past Surgical History / Comment(s): HEEL SPURS REMOVED, left knee replacement Past Anesthesia/Blood Transfusion Reactions: No Reported Reaction Past Psychological History: No Psychological Hx Reported Smoking Status: Never smoker Past Alcohol Use History: None Reported Past Drug Use History: None Reported - Past Family History Father Family Medical History: Cancer Mother Family Medical History: Cancer General Exam - General Exam Comments Initial Comments: GENERAL: Patient is well-developed and well-nourished. Patient is nontoxic and well-hydrated and is in mild distress. ENT: Neck is soft and supple. No significant lymphadenopathy is noted. Oropharynx is clear. Moist mucous membranes. Neck has full range of motion without eliciting any pain. EYES: The sclera were anicteric and conjunctiva were pink and moist. Extraocular movements were intact and pupils were equal round and reactive to light. Eyelids were unremarkable. PULMONARY: Unlabored respirations. Good breath sounds bilaterally. No audible rales rhonchi or wheezing was noted. CARDIOVASCULAR: There is a regular rate and rhythm without any murmurs gallops or rubs. ABDOMEN: Suprapubic abdominal tenderness SKIN: Skin is clear with no lesions or rashes and otherwise unremarkable. NEUROLOGIC: Patient is alert and oriented x3. Cranial nerves II through XII are grossly intact. Motor and sensory are also intact. Normal speech, volume and content. Symmetrical smile. MUSCULOSKELETAL: Normal extremities with adequate strength and full range of motion. LYMPHATICS: No significant lymphadenopathy is noted PSYCHIATRIC: Normal psychiatric evaluation. Limitations: no limitations Course Vital Signs 12/19/24 10:35 Temperature 97.4 F L Pulse Rate 66 Respiratory 18 Rate Blood Pressure 164/92 O2 Sat by Pulse 96 Oximetry Medical Decision Making - Medical Decision Making Was pt. sent in by a medical professional or institution ([facility] Estrada, PRODUCT ARCHITECT, urgent care, hospital, or usp...) When possible be specific @ -No Did you speak to anyone other than the patient for history (EMS, parent, family, police, friend...)? What history was obtained from this source @ -No Did you review nursing and triage notes (agree or disagree)? Why? @ -I reviewed and agree with nursing and triage notes Were old charts reviewed (outside hosp., previous admission, EMS record, old EKG, old radiological studies, urgent care reports/EKG's, usp records)? Report findings @ -No old charts were reviewed Differential Diagnosis? @ -Differential Abdominal Pain Men: Appendicitis, cholecystitis, diverticulosis, ischemic bowel, pancreatitis, hepatitis, UTI, gastroenteritis, AAA, incarcerated hernia, bowel obstruction, co nstipation, inflammatory bowel, hepatitis, peptic ulcer disease, splenic infarction, perforated viscus, testicular torsion, this is not meant to be an all-inclusive list EKG interpreted by me (3pts min.). @ -As above X-rays interpreted by me (1pt min.). @ -None done CT interpreted by me (1pt min.). @ -Patient CAT scan of the abdomen pelvis shows a hydronephrosis and hydroureter on the left side U/S interpreted by me (1pt. min.). @ -None done What testing was considered but not performed or refused? (CT, X-rays, U/S, labs)? Why? @ -None What meds were considered but not given or refused? Why? @ -None Did you discuss the management of the patient with other professionals (professionals i.e. DrKrystal, PA, PRODUCT ARCHITECT, lab, RT, psych nurse, social media community manager, stave bolt equalizer, teacher, juvenile correctional officer, supportive employment case manager)? Give summary @ -No Was smoking cessation discussed for >3mins.? @ -No Was critical care preformed (if so, how long)? @ -No Were there social determinants of health that impacted care today? How? (Homeles sness, low income, unemployed, alcoholism, drug addiction, transportation, low edu. Level, literacy, decrease access to med. care, care home, rehab)? @ -No Was there de-escalation of care discussed even if they declined (Discuss DNR or withdrawal of care, Hospice)? DNR status @ -No What co-morbidities impacted this encounter? (DM, HTN, Smoking, COPD, CAD, Cancer, CVA, ARF, Chemo, Hep., AIDS, mental health diagnosis, sleep apnea, morbid obesity)? @ -None Was patient admitted / discharged? Hospital course, mention meds given and route, prescriptions, significant lab abnormalities, going to OR and other pertinent info. @ -Patient's got hydronephrosis on the left. Urine did not show obvious signs of infection. Patient stated after he urinated in the emergency department he felt a lot better and had no more pain. Undiagnosed new problem with uncertain prognosis? @ -No Drug Therapy requiring intensive monitoring for toxicity (Heparin, Nitro, Insulin, Cardizem)? @ -No Were any procedures done? @ -No Diagnosis/symptom? @ -Hydronephrosis Acute, or Chronic, or Acute on Chronic? @ -Acute Uncomplicated (without systemic symptoms) or Complicated (systemic symptoms)? @ -Complicated Side effects of treatment? @ -No Exacerbation, Progression, or Severe Exacerbation? @ -No Poses a threat to life or bodily function? How? (Chest pain, [place], [place], pneumonia, PE, COPD, DKA, ARF, appy, cholecystitis, CVA, Diverticulitis, Homicidal, Suicidal, threat to staff... and all critical care pts) @ -No - Lab Data Result diagrams: 12/19/24 11:34 12/19/24 11:34 Lab Results 12/19/24 12/19/24 12/19/24 Range/Units 11:34 11:34 11:51 WBC 9.2 (3.8-10.6) k/uL RBC 4.63 (4.30-5.90) m/uL Hgb 14.3 (13.0-17.5) gm/dL Hct 44.8 (39.0-53.0) % MCV 96.9 (80.0-100.0) fL MCH 30.9 (25.0-35.0) pg MCHC 31.9 (31.0-37.0) g/dL RDW 14.1 (11.5-15.5) % Plt Count 193 (150-450) k/uL MPV 7.6 Neutrophils % 86 % Lymphocytes % 7 % Monocytes % 5 % Eosinophils % 2 % Basophils % 0 % Neutrophils # 7.9 H (1.3-7.7) k/uL Lymphocytes # 0.6 L (1.0-4.8) k/uL Monocytes # 0.4 (0-1.0) k/uL Eosinophils # 0.2 (0-0.7) k/uL Basophils # 0.0 (0-0.2) k/uL Sodium 138 (137-145) mmol/L Potassium 4.4 (3.5-5.1) mmol/L Chloride 107 (98-107) mmol/L Carbon Dioxide 19 L (22-30) mmol/L Anion Gap 12 mmol/L BUN 24 H (9-20) mg/dL Creatinine 1.81 H (0.66-1.25) mg/dL Est GFR (CKD-EPI)AfAm 39 (>60 ml/min/1.73 sqM) Est GFR (CKD-EPI)NonAf 34 (>60 ml/min/1.73 sqM) Glucose 111 H (74-99) mg/dL Calcium 8.7 (8.4-10.2) mg/dL Total Bilirubin 1.0 (0.2-1.3) mg/dL AST 25 (17-59) U/L ALT 17 (4-49) U/L Alkaline Phosphatase 78 (38-126) U/L Total Protein 6.9 (6.3-8.2) g/dL Albumin 4.0 (3.5-5.0) g/dL Urine Color Yellow Urine Appearance Cloudy (Clear) Urine pH 6.0 (5.0-8.0) Ur Specific [place] 1.014 (1.001-1.035) Urine Protein 1+ H (Negative) Urine Glucose (UA) Negative (Negative) Urine Ketones Negative (Negative) Urine Blood Large H (Negative) Urine Nitrite Negative (Negative) Urine Bilirubin Negative (Negative) Urine Urobilinogen <2.0 (<2.0) mg/dL Ur Leukocyte Esterase Large H (Negative) Urine RBC >182 H (0-5) /hpf Urine WBC >182 H (0-5) /hpf Urine Mucus Rare H (None) /hpf Disposition Clinical Impression: Hydronephrosis Disposition: HOME SELF-CARE Condition: Good Instructions (If sedation given, give patient instructions): Hydronephrosis (ED) Is patient prescribed a controlled substance at d/c from ED?: No Referrals: David Lowe MD [STAFF PHYSICIAN] - 1-2 days Time of Disposition: 14:35
[2024-12-19 11:45] LABS: Basophils % (A) 0 %; Eosinophils # (A) 0.2 k/uL (0-0.7); Eosinophils % (A) 2 %; HCT 44.8 % (39.0-53.0); HGB 14.3 gm/dL (13.0-17.5); Lymphocytes # (A) 0.6 k/uL (1.0-4.8); Lymphocytes % (A) 7 %; MCH 30.9 pg (25.0-35.0); MCHC 31.9 g/dL (31.0-37.0); MCV 96.9 fL (80.0-100.0); Mean Platelet Volume 7.6; Monocytes # (A) 0.4 k/uL (0-1.0); Monocytes % (A) 5 %; Neutrophils # (A) 7.9 k/uL (1.3-7.7); Neutrophils % (A) 86 %; Platelet Count 193 k/uL (150-450); RBC 4.63 m/uL (4.30-5.90); RDW 14.1 % (11.5-15.5); WBC 9.2 k/uL (3.8-10.6)
[2024-12-19] MEDS: HYDROmorphone 0.5 MG/0.5 ML SYRINGE IVP STA (11:53)
[2024-12-19] MEDS: KETOROLAC 15 MG/ML 1 ML VIAL IVP STA (11:53)
[2024-12-19 12:01] LABS: Appearance,Urine Cloudy (Clear); Bilirubin,Urine Negative (Negative); Blood,Urine Large (Negative); Color,Urine Yellow; Glucose,Urine (UA) Negative (Negative); Ketones,Urine Negative (Negative); Leukocyte Esterase,Urine Large (Negative); Mucus,Urine Rare /hpf; Nitrite,Urine Negative (Negative); Protein,Urine 1+ (Negative); RBC,Urine >182 /hpf (0-5); Specific Gravity,Urine 1.014 (1.001-1.035); Urobilinogen,Urine <2.0 mg/dL (<2.0); WBC,Urine >182 /hpf (0-5)
[2024-12-19 12:01] LABS: ALT 17 U/L (4-49); Blood Urea Nitrogen 24 mg/dL (9-20); Chloride 107 mmol/L (98-107); Non-African American GFR(CKD) 34 (>60 ml/min/1.73 sqM); Sodium 138 mmol/L (137-145); Total Protein 6.9 g/dL (6.3-8.2)
[2024-12-19 12:34] LABS: AST 25 U/L (17-59); African American GFR (CKD) 39 (>60 ml/min/1.73 sqM); Alkaline Phosphatase 78 U/L (38-126); Anion Gap 12 mmol/L; Calcium 8.7 mg/dL (8.4-10.2); Carbon Dioxide 19 mmol/L (22-30); Glucose 111 mg/dL (74-99); Potassium 4.4 mmol/L (3.5-5.1)
--- NOTE | 2024-12-19 13:53 | CT ---
EXAMINATION TYPE: CT abdomen pelvis wo con DATE OF EXAM: 12/19/2024 COMPARISON: 01/29/2024 CLINICAL INDICATION: Male, 84 years old with history of Flank pain; PHH, renal stone TECHNIQUE: CT scan of the abdomen and pelvis is performed without oral or IV contrast. CT DLP: 643.[address] CTDI: mGy Automated exposure control for dose reduction was used. FINDINGS: Within the limitations of a non-contrast study, the following observations are made. There is a stable 5 mm nodule in the right lung base. Gallbladder is normal and there is no gallstone, wall thickening, pericholecystic fluid or distention . There is no biliary ductal dilatation. There is no organomegaly of the liver, pancreas, spleen or adrenal glands. There is a stable nonobstructing 6 mm right renal calculus and stable 3.3 mm left renal calculus. The re is been interval development of marked left hydronephrosis and hydroureter but there is no definit e calculus within the distal left ureter. There are multiple large simple cortical cysts bilaterally, right greater than left. There is marked prostatic hypertrophy. The caliber of the abdominal aorta is normal and there is no retroperitoneal adenopathy or hemorrhage . The bowel loops are normal in caliber is no evidence of obstruction. No inflammatory changes are iden tified in the mesentery and there is no free intraperitoneal air or fluid. The osseous structures and soft tissues are unremarkable. IMPRESSION: 1. Interval development of moderate to marked left hydronephrosis and hydroureter without evidence of obstructing calculus in the distal left ureter. 2. Marked prosthetic hypertrophy. 3. Stable mild nephrolithiasis as described above. Marked renal cysts. [facility], , 12/19/2024 1:51 PM
[2024-12-19 15:56] VITALS: BP 149/83; PULSE 57; RESP 20
== END 2024-12-19 15:56 | disposition home or self-care (01) ==
LOC: EC 10:19
DX: N13.2 Hydronephrosis with renal and ureteral calculous obstruction (principal); Z85.46 Personal history of malignant neoplasm of prostate
CPT/HCPCS: 51798; 36415; 80053; 85025; 81001; 87086; 74176; 99284; 96374; J1885